=== PATIENT | male | born 1945 | race Caucasian/White ===

== ENCOUNTER 2019-07-08 06:32 | Day surgery (SDC) | payer MEDICARE, SELFPAY ==
[2019-07-08 08:57] LABS: Glucose Point of Care 131 (65-105)
[2019-07-08 08:57] LABS: Glucose Point of Care 119 (65-105)
== END 2019-07-08 09:15 | disposition home or self-care (01) ==
PROVIDERS: PCP Internal Medicine; Visit Provider Surgery
DX: Z12.11 Encounter for screening for malignant neoplasm of colon (principal); Z86.010 Personal history of colon polyps; K57.90 Diverticulosis of intestine, part unspecified, without perforation or abscess without bleeding
CPT/HCPCS: 45378; 812; J2704; J7120

== ENCOUNTER 2019-09-03 07:07 | Outpatient (CLI) | payer MEDICARE, SELFPAY ==
[2019-09-03 07:20] LABS: Add Urine Microscopic? NO; Appearance Urine Clear (Clear); Bilirubin Urine Negative (Negative); Blood Urine Negative (Negative); Color Urine Yellow (Yellow); Glucose Urine UA Negative (Negative); Ketones Urine Negative (Negative); Leukocyte Esterase Ur Negative (Negative); Nitrate Urine Negative (Negative); Protein Urine Negative (Negative); Specific Grav Ur 1.025 (1.010-1.020); Urobilinogen Urine 0.2 mg/dL (0.2-1.0); pH Urine 5.5 (5.0-8.0)
[2019-09-03 07:33] LABS: Hemoglobin A1C 6.4 % (<5.7)
[2019-09-03 08:17] LABS: Alanine Aminotransferase 32 U/L (16-63); Albumin Level 3.9 g/dL (3.4-5.0); Alkaline Phosphatase 60 U/L (46-116); Anion Gap 13.3 mmol/L (7-16); Aspartate Amino Transferase 18 U/L (15-37); Bilirubin,Total 0.7 mg/dL (0.00-1.00); Blood Urea Nitrogen 16 mg/dL (7-18); Calcium 8.9 mg/dL (8.5-10.1); Carbon Dioxide 28 mmol/L (21-32); Chloride 106 mmol/L (98-108); Cholesterol 181 mg/dL (0-200); Creatine Kinase 111 U/L (39-308); Estimated Glomerular Filt Rate > 60; Glucose 115 mg/dL (70-99); HDL Direct 49 mg/dL (40-60); LDL Cholesterol Calculated 109 mg/dL (<130); Osmolality Calculated 298 mOsm/kg (285-295); Potassium 4.3 mmol/L (3.5-5.1); Prostate Specific Antigen 0.7 ng/mL (< OR = 4.0); Sodium 143 mmol/L (136-145); Total Protein 6.9 g/dL (6.4-8.2); Triglycerides 114 mg/dL (0-150)
== END 2019-09-03 07:08 ==
LOC: CHSLAB 07:09
PROVIDERS: PCP Internal Medicine; Visit Provider Internal Medicine
DX: E78.2 Mixed hyperlipidemia (principal); E11.9 Type 2 diabetes mellitus without complications; I10 Essential (primary) hypertension; Z12.5 Encounter for screening for malignant neoplasm of prostate
CPT/HCPCS: 36415; 80053; 80061; 81003; 82550; 83036; 84153; G0103

== ENCOUNTER 2020-03-06 07:23 | Outpatient (CLI) | payer MEDICARE, SELFPAY ==
[2020-03-06 08:02] LABS: Add Urine Microscopic? NO; Appearance Urine Clear (Clear); Bilirubin Urine Negative (Negative); Blood Urine Negative (Negative); Color Urine Yellow (Yellow); Glucose Urine UA Negative (Negative); Ketones Urine Negative (Negative); Leukocyte Esterase Ur Negative (Negative); Nitrate Urine Negative (Negative); Protein Urine Negative (Negative); Specific Grav Ur 1.025 (1.010-1.020); Urobilinogen Urine 0.2 mg/dL (0.2-1.0)
[2020-03-06 08:17] LABS: Hemoglobin A1C 6.1 % (<5.7)
[2020-03-06 08:18] LABS: Creatinine Urine 109.69 mg/dL (40-278); MALB Creatinine Ratio 11.8 mg/g (0-30); Microalbumin Urine Random < 13.0 mg/L
[2020-03-06 08:30] LABS: Alanine Aminotransferase 14 U/L (16-63); Albumin Level 4.1 g/dL (3.4-5.0); Alkaline Phosphatase 68 U/L (46-116); Anion Gap 8 mmol/L (8-16); Aspartate Amino Transferase 17 U/L (15-37); Bilirubin,Total 0.6 mg/dL (0.00-1.00); Blood Urea Nitrogen 20 mg/dL (7-18); Calcium 8.7 mg/dL (8.5-10.1); Carbon Dioxide 28 mmol/L (21-32); Chloride 104 mmol/L (98-108); Cholesterol 177 mg/dL (0-200); Creatine Kinase 68 U/L (39-308); Estimated Glomerular Filt Rate > 60; Glucose 149 mg/dL (70-99); HDL Direct 52 mg/dL (40-60); LDL Cholesterol Calculated 96 mg/dL (<130); Osmolality Calculated 295 mOsm/kg (285-295); Potassium 4.6 mmol/L (3.5-5.1); Sodium 140 mmol/L (136-145); Total Protein 7.2 g/dL (6.4-8.2); Triglycerides 146 mg/dL (0-150)
== END 2020-03-06 07:24 | disposition home or self-care (01) ==
PROVIDERS: PCP Internal Medicine; Visit Provider Internal Medicine
DX: E78.2 Mixed hyperlipidemia (principal); E11.9 Type 2 diabetes mellitus without complications; I10 Essential (primary) hypertension
CPT/HCPCS: 36415; 80053; 80061; 81003; 82043; 82550; 83036

== ENCOUNTER 2020-09-04 07:12 | Outpatient (CLI) | payer MEDICARE, SELFPAY ==
[2020-09-04 07:37] LABS: Hemoglobin A1C 6.7 % (<5.7)
[2020-09-04 07:41] LABS: Add Urine Microscopic? YES; Appearance Urine Clear (Clear); Bilirubin Urine Negative (Negative); Blood Urine Negative (Negative); Color Urine Yellow (Yellow); Glucose Urine UA Negative (Negative); Ketones Urine Negative (Negative); Leukocyte Esterase Ur Trace (Negative); Nitrate Urine Negative (Negative); Protein Urine Negative (Negative); Specific Grav Ur 1.025 (1.010-1.020); Urobilinogen Urine 0.2 mg/dL (0.2-1.0); pH Urine 5.5 (5.0-8.0)
[2020-09-04 07:47] LABS: Bacteria Urine None seen /hpf; RBC Urine None seen /hpf (0-2); Squamous Epithelial Cell Urine Rare /hpf (Few); WBC Urine None seen /hpf (0-3)
[2020-09-04 08:04] LABS: Creatinine Urine 97.45 mg/dL (40-278); MALB Creatinine Ratio 13.3 mg/g (0-30); Microalbumin Urine Random < 13.0 mg/L
[2020-09-04 08:11] LABS: Alanine Aminotransferase 35 U/L (16-63); Albumin Level 3.9 g/dL (3.4-5.0); Alkaline Phosphatase 66 U/L (46-116); Anion Gap 7 mmol/L (8-16); Aspartate Amino Transferase 15 U/L (15-37); Bilirubin,Total 0.7 mg/dL (0.00-1.00); Blood Urea Nitrogen 14 mg/dL (7-18); Carbon Dioxide 30 mmol/L (21-32); Chloride 104 mmol/L (98-108); Cholesterol 161 mg/dL (0-200); Creatine Kinase 60 U/L (39-308); Estimated Glomerular Filt Rate 60; Glucose 127 mg/dL (70-99); HDL Direct 43 mg/dL (40-60); LDL Cholesterol Calculated 86 mg/dL (<130); Osmolality Calculated 294 mOsm/kg (285-295); Potassium 4.3 mmol/L (3.5-5.1); Sodium 141 mmol/L (136-145); Total Protein 6.8 g/dL (6.4-8.2); Triglycerides 162 mg/dL (0-150)
== END 2020-09-04 07:13 | disposition home or self-care (01) ==
LOC: CHSLAB 07:15
PROVIDERS: PCP Internal Medicine; Visit Provider Internal Medicine
DX: E11.9 Type 2 diabetes mellitus without complications (principal); I10 Essential (primary) hypertension; E78.2 Mixed hyperlipidemia
CPT/HCPCS: 36415; 80053; 80061; 81001; 82043; 82550; 83036

== ENCOUNTER 2020-11-29 13:33 | Outpatient (CLI) | payer MEDICARE, SELFPAY ==
--- NOTE | ~2020-11-29 | XR_ITS ---
EXAMINATION:XR_CERV2-3V_CR DATE: 11/29/2020 13:55 INDICATION: Chronic neck pain TECHNIQUE: AP, lateral, and odontoid views of the cervical spine are provided. COMPARISON: None FINDINGS: There are 3 mm of anterolisthesis of C4 on C5. The odontoid is intact. No fracture is ident ified. There is complete loss of intervertebral disc space height at C5-6 and severe loss of interver tebral disc space height at C2-3, C3-4, and C6-7. Degenerative osteophytes project from the anterior endplates of multiple vertebral bodies. 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 IMPRESSION: 1. Severe cervical spondylosis. Reviewed, dictated and finalized at location A.
== END 2020-11-29 13:34 | disposition home or self-care (01) ==
LOC: CHSIMG 13:36
PROVIDERS: PCP Internal Medicine; Visit Provider Internal Medicine
DX: M54.2 Cervicalgia (principal)
CPT/HCPCS: 72040

== ENCOUNTER 2020-12-27 07:17 | Outpatient (CLI) | payer MEDICARE, SELFPAY ==
--- NOTE | ~2020-12-27 | CT_ITS ---
EXAMINATION: CT diagnostic chest w con DATE: 12/27/2020 08:13 INDICATION: Esophageal wall thickening on outside hospital examination. TECHNIQUE: Transaxial computed tomographic images of the chest were obtained after the administration of 75 cc of Omnipaque 350 intravenous contrast. The dose-length product (DLP) was 386.33 mGy-cm. Ite rative reconstruction was used. COMPARISON: 08/26/2016 FINDINGS: There is mild emphysema. The lungs are free of acute opacities. Calcified right lung nodule s are consistent with old granulomatous disease. There is no pleural effusion or pneumothorax. There is chronic mild wall thickening of the distal esophagus. No pathologically enlarged thoracic lymph no virgen are identified. The heart size is normal. Calcified coronary artery atherosclerosis is noted. Lex cified mediastinal lymph nodes are consistent with old granulomatous disease. There is chronic anteri or wedging at the thoracolumbar junction. IMPRESSION: 1. Chronic mild wall thickening of the distal esophagus which could reflect esophagitis. Consider dir ect visualization with endoscopy. Reviewed, dictated and finalized at location B. IMPRESSION: 1. Chronic mild wall thickening of the distal esophagus which could reflect eso phagitis. Consider direct visualization with endoscopy.
[2020-12-27 07:52] LABS: Estimated Glomerular Filt Rate > 60
== END 2020-12-27 07:18 | disposition home or self-care (01) ==
PROVIDERS: PCP Internal Medicine; Visit Provider Internal Medicine
DX: R93.3 Abnormal findings on diagnostic imaging of other parts of digestive tract (principal)
CPT/HCPCS: 71260; Q9967

== ENCOUNTER 2021-01-18 02:30 | Day surgery (SDC) | payer MEDICARE, SELFPAY ==
[2021-01-09 13:48] VITALS: BMI 30.8
[2021-01-18 06:37] VITALS: BP 139/94; PULSE 74; RESP 18; TEMP 35.9; O2SAT 97; BMI 30.8
[2021-01-18] MEDS: LACTATED RINGERS 1,000 ML 150 ML IV CONT (06:56)
[2021-01-18 06:57] LABS: Glucose Point of Care 139 mg/dl (65-105)
--- NOTE | 2021-01-18 07:48 | WPDANESEPPF ---
Anes - Initial Pre Proc Eval Procedure: Operation Date: 01/18/21 08:00 Proposed Procedures p Esophagogastroduodenoscopy - Clayton Banks DO Date/Time: 01/18/21 07:48 Surgeon: Clayton Banks DO Pre Op Diagnosis: distal esophageal thickening Patient Data Age: 75 Gender: M Height: 1.65 m Weight: 84.1 kg Last Vital Signs Temp 35.9 C L 01/18/21 06:37 Pulse 74 01/18/21 06:37 Resp 18 01/18/21 06:37 BP 139/94 H 01/18/21 06:37 Pulse Ox 97 01/18/21 06:37 Allergies Allergy/AdvReac Type Severity Reaction Status Date / Time terbutaline [From Brethine] AdvReac Jittery Verified 01/18/21 06:35 Home Medications Medication Instructions Recorded Confirmed Type amlodipine 10 mg PO DAILY 01/09/21 01/18/21 History aspirin 81 mg PO DAILY 01/09/21 01/18/21 History finasteride 5 mg PO DAILY 01/09/21 01/18/21 History glimepiride 4 mg PO DAILY 01/09/21 01/18/21 History mirtazapine 45 mg PO DAILY 01/09/21 01/18/21 History pravastatin 20 mg PO DAILY 01/09/21 01/18/21 History tamsulosin 0.4 mg PO DAILY 01/09/21 01/18/21 History Laboratory Tests 01/18/21 06:53 POC Capillary Glucose 139 mg/dl H mg/dl (65-105) Patient hx anesthesia problems: none Family hx anesthesia problems: none [facility] Past Medical History Medical History (Updated 01/18/21 @ 07:50 by Ramesh Davenport MD) Diabetes HTN (hypertension) Hyperlipidemia Obesity Social History Social History Smoking status: Former smoker Alcohol intake: never Substance use: never Living arrangements: with family Spiritual care concerns: No Anes - Eval Final PreProcedure Day of Procedure 01/18/21 07:48 Patient weight: obese Heart: regular rate and rhythm Lungs: clear to auscultation Airway: Mallampati scale class II Neurological: alert and oriented Last oral intake: >/= 8 hours ASA classification: III Emergent: no Anesthetic plan: proceed Anesthesia type and monitoring: general GIVS and standard monitoring Informed Consent: The patient's anesthetic plan and its attendant risks and benefits were discussed with the patient/family/POA. Questions were solicited and answers provided to the satisfaction of the patient/family/POA.
--- NOTE | 2021-01-18 08:12 | PM.IMHP ---
H&P: HPI History of Present Illness Date/Time: 01/18/21 08:12 Chief Complaint: Abnormal imaging Narrative: this is a 75-year-old man who presents for EGD. He recently had some imaging that showed evidence of distal esophageal thickening. He denies any heartburn, acid reflux, or dysphagia. He denies any hematemesis or hemoptysis. Review of Systems Review of Systems: All systems reviewed & are unremarkable except as noted in HPI and below Eyes: Eyes: Denies change in vision ENT: Denies hearing loss, Denies neck pain and Denies sore throat Cardiovascular: Cardiovascular: Denies chest pain and Denies dyspnea Respiratory: Respiratory: Denies cough, Denies dyspnea and Denies wheezing Genitourinary: Genitourinary: Denies hematuria and Denies dysuria Musculoskeletal: Musculoskeletal: Denies arthralgias, Denies joint swelling and Denies neck pain Allergic/Immunologic: Allergic/Immunologic: Denies wheezing [facility] Past Medical History Medical History (Updated 01/18/21 @ 08:14 by Clayton Banks DO) Diabetes HTN (hypertension) Hyperlipidemia Obesity Social History Social History Smoking status: Former smoker Alcohol intake: never Substance use: never Living arrangements: with family Spiritual care concerns: No Meds Home Medications and Allergies Home Medications Medication Instructions Recorded Confirmed Type amlodipine 10 mg PO DAILY 01/09/21 01/18/21 History aspirin 81 mg PO DAILY 01/09/21 01/18/21 History finasteride 5 mg PO DAILY 01/09/21 01/18/21 History glimepiride 4 mg PO DAILY 01/09/21 01/18/21 History mirtazapine 45 mg PO DAILY 01/09/21 01/18/21 History pravastatin 20 mg PO DAILY 01/09/21 01/18/21 History tamsulosin 0.4 mg PO DAILY 01/09/21 01/18/21 History Allergies Allergy/AdvReac Type Severity Reaction Status Date / Time terbutaline [From Brethine] AdvReac Jittery Verified 01/18/21 06:35 Vital Signs Vital Signs - 24 hr 01/18/21 06:37 Temperature 35.9 C L Pulse Rate 74 Respiratory Rate 18 Blood Pressure 139/94 H Pulse Oximetry 97 Exam Const: General: alert; No acute distress Orientation/consciousness: patient oriented x3 Limitations: no limitations HENMT: Head: normocephalic and atraumatic Ears: hearing grossly normal bilaterally General nose exam: Normal external nose present and Normal nares present Mouth: Yes Normal oral and palatal mucosa present and Yes moist mucous membranes Eyes: General: appearance normal, both eyes and all related structures Conjunctivae: conjunctivae normal Sclera: sclerae normal Pupils: Equal, round and reactive pupils present EOM: EOMs intact bilaterally Neck: Neck: normal visual inspection, full ROM, no lymphadenopathy, supple and no JVD Lymphatic: no lymphadenopathy noted Chest: Chest palpation & inspection: normal inspection of the chest Resp: Effort & Inspection: normal respiratory effort and able to speak in complete sentences Auscultation: clear to auscultation bilaterally Percussion: percussion normal Cardio: Jugular venous distension: no JVD Rate: regular rate Rhythm: regular rhythm Heart sounds: S1 normal heart sound present and S2 normal heart sound present Peripheral pulses: Peripheral pulses 2+ throughout GI: Inspection: normal to inspection GI Palp: No abdominal tenderness, Yes Soft to palpation, No Guarding due to palpation present (GI), No Hernia present and No Rebound tenderness present Percussion: Yes normal to percussion Auscultation: normal bowel sounds : General: Yes no CVA tenderness Back/Spine/Pelvis: Back: no CVA tenderness Skin: General skin exam: normal color and dry skin Neuro: General: patient oriented x3, gait normal, moves all extremities, no focal motor deficits and CN's II-XI intact bilaterally Cranial nerves: Yes Equal, round and reactive pupils present Speech: normal speech Extrem: General: normal to inspection and capillary
[2021-01-18] MEDS: BENZOCAINE (*SP) 60 ML SPRAY CAN (HURRICAINE) 1 SPRAY MUCOUS MEM (08:23)
--- NOTE | 2021-01-18 08:45 | SUR.OPER ---
Dr. Banks notified of positive h pylori.
[2021-01-18 08:49] VITALS: BP 92/52; PULSE 72; RESP 18; O2SAT 96
[2021-01-18 08:59] VITALS: BP 124/67; PULSE 68; RESP 18; O2SAT 98
[2021-01-18 09:09] VITALS: BP 123/70; PULSE 61; RESP 19; O2SAT 98
== END 2021-01-18 09:20 | disposition home or self-care (01) ==
PROVIDERS: PCP Internal Medicine; Visit Provider Surgery
PROC: 0DJ08ZZ Inspection of Upper Intestinal Tract, Via Natural or Artificial Opening Endoscopic (ICD-10-PCS; CPT 43235; principal; 2021-01-18 08:00)
DX: K25.7 Chronic gastric ulcer without hemorrhage or perforation (principal); K29.80 Duodenitis without bleeding; B96.81 Helicobacter pylori [H. pylori] as the cause of diseases classified elsewhere; I10 Essential (primary) hypertension; E11.9 Type 2 diabetes mellitus without complications; E78.5 Hyperlipidemia, unspecified; E66.9 Obesity, unspecified; Z68.30 Body mass index [BMI] 30.0-30.9, adult; Z79.82 Long term (current) use of aspirin; Z79.84 Long term (current) use of oral hypoglycemic drugs
CPT/HCPCS: 43239; 82948; 87081; 88305; 88313; 88342; J2704; J7120

== ENCOUNTER 2021-03-06 07:15 | Outpatient (CLI) | payer MEDICARE, SELFPAY ==
[2021-03-06 07:33] LABS: Add Urine Microscopic? NO; Appearance Urine Clear (Clear); Bilirubin Urine Negative (Negative); Blood Urine Negative (Negative); Color Urine Light Yellow (Yellow); Glucose Urine UA Negative (Negative); Ketones Urine Negative (Negative); Leukocyte Esterase Ur Negative (Negative); Nitrate Urine Negative (Negative); Protein Urine Negative (Negative); Specific Grav Ur 1.025 (1.010-1.020); Urobilinogen Urine 0.2 mg/dL (0.2-1.0); pH Urine 5.5 (5.0-8.0)
[2021-03-06 07:39] LABS: Creatinine Urine 161.86 mg/dL (40-278); Hemoglobin A1C 6.5 % (<5.7); Microalbumin Urine Random < 13.0 mg/L
[2021-03-06 08:32] LABS: Alanine Aminotransferase 34 U/L (16-63); Albumin Level 3.9 g/dL (3.4-5.0); Alkaline Phosphatase 66 U/L (46-116); Anion Gap 8 mmol/L (8-16); Aspartate Amino Transferase 16 U/L (15-37); Bilirubin,Total 0.7 mg/dL (0.00-1.00); Blood Urea Nitrogen 15 mg/dL (7-18); Carbon Dioxide 29 mmol/L (21-32); Chloride 106 mmol/L (98-108); Cholesterol 160 mg/dL (0-200); Creatine Kinase 75 U/L (39-308); Estimated Glomerular Filt Rate > 60; Glucose 118 mg/dL (70-99); HDL Direct 46 mg/dL (40-60); LDL Cholesterol Calculated 89 mg/dL (<130); Osmolality Calculated 297 mOsm/kg (285-295); Potassium 4.5 mmol/L (3.5-5.1); Sodium 143 mmol/L (136-145); Total Protein 6.8 g/dL (6.4-8.2); Triglycerides 123 mg/dL (0-150)
== END 2021-03-06 07:16 | disposition home or self-care (01) ==
PROVIDERS: PCP Internal Medicine; Visit Provider Internal Medicine
DX: E78.2 Mixed hyperlipidemia (principal); I10 Essential (primary) hypertension; E11.9 Type 2 diabetes mellitus without complications
CPT/HCPCS: 36415; 80053; 80061; 81003; 82043; 82550; 83036

== ENCOUNTER 2021-09-06 07:20 | Outpatient (CLI) | payer MEDICARE, SELFPAY ==
[2021-09-06 07:40] LABS: Add Urine Microscopic? NO; Appearance Urine Clear (Clear); Basophils Percent Auto 0.9 % (0.0-1.0); Bilirubin Urine Negative (Negative); Blood Urine Negative (Negative); Color Urine Light Yellow (Yellow); Eosinophils Percent Auto 7.2 % (1.0-6.0); Glucose Urine UA Negative (Negative); Hemoglobin 15.9 g/dL (12.4-15.3); Immature Granulocyte Absolute 0.06 K/mm3 (0.00-0.00); Immature Granulocyte Percent A 0.5 % (0.0-0.0); Ketones Urine Negative (Negative); Leukocyte Esterase Ur Negative (Negative); Lymphocytes Absolute Auto 4.57 K/mm3 (1.10-4.50); Lymphocytes Percent Auto 41.2 % (18.0-42.0); Mean Corpuscular HGB Conc 34.6 g/dL (32.0-36.0); Mean Corpuscular Hemoglobin 30.1 pg (27.0-31.0); Mean Platelet Volume 9.2 fl (8.7-11.0); Monocytes Absolute Auto 1.04 K/mm3 (0.10-0.90); Monocytes Percent Auto 9.4 % (2.0-11.0); Neutrophils Absolute Auto 4.5 K/mm3 (1.7-7.2); Neutrophils Percent Auto 40.8 % (50.0-70.0); Nitrate Urine Negative (Negative); Platelet Count Result 187 K/mm3 (150-420); Protein Urine Negative (Negative); Red Blood Count 5.29 M/mm3 (4.70-6.10); Red Cell Distribution Width 11.6 % (11.6-14.4); Urobilinogen Urine 0.2 mg/dL (0.2-1.0); White Blood Count 11.1 K/mm3 (4.8-10.8); pH Urine 5.5 (5.0-8.0)
[2021-09-06 07:47] LABS: Hemoglobin A1C 6.5 % (<5.7)
[2021-09-06 07:48] LABS: Creatinine Urine 114.13 mg/dL (40-278); MALB Creatinine Ratio 11.3 mg/g (0-30); Microalbumin Urine Random < 13.0 mg/L
[2021-09-06 08:23] LABS: Alanine Aminotransferase 27 U/L (16-63); Alkaline Phosphatase 61 U/L (46-116); Anion Gap 9 mmol/L (8-16); Aspartate Amino Transferase 14 U/L (15-37); Bilirubin,Total 0.6 mg/dL (0.00-1.00); Blood Urea Nitrogen 24 mg/dL (7-18); Calcium 8.6 mg/dL (8.5-10.1); Carbon Dioxide 26 mmol/L (21-32); Chloride 104 mmol/L (98-108); Cholesterol 170 mg/dL (0-200); Creatine Kinase 68 U/L (39-308); Estimated Glomerular Filt Rate > 60; Glucose 137 mg/dL (70-99); HDL Direct 51 mg/dL (40-60); LDL Cholesterol Calculated 85 mg/dL (<130); Osmolality Calculated 294 mOsm/kg (285-295); Potassium 4.3 mmol/L (3.5-5.1); Sodium 139 mmol/L (136-145); Total Protein 6.7 g/dL (6.4-8.2); Triglycerides 168 mg/dL (0-150)
== END 2021-09-06 07:21 | disposition home or self-care (01) ==
LOC: CHSLAB 07:22
PROVIDERS: PCP Internal Medicine; Visit Provider Internal Medicine
DX: E78.2 Mixed hyperlipidemia (principal); E11.9 Type 2 diabetes mellitus without complications; I10 Essential (primary) hypertension; K25.3 Acute gastric ulcer without hemorrhage or perforation
CPT/HCPCS: 36415; 80053; 80061; 81003; 82043; 82550; 83036; 85025

== ENCOUNTER 2022-03-07 07:03 | Outpatient (CLI) | payer MEDICARE, SELFPAY ==
[2022-03-07 07:16] LABS: Appearance Urine Clear (Clear); Bilirubin Urine Negative (Negative); Blood Urine Negative (Negative); Glucose Urine UA Negative (Negative); Ketones Urine Negative (Negative); Leukocyte Esterase Ur Negative (Negative); Nitrate Urine Negative (Negative); Protein Urine Negative (Negative); Specific Grav Ur 1.025 (1.010-1.020); Urobilinogen Urine 0.2 mg/dL (0.2-1.0)
[2022-03-07 07:23] LABS: Add Urine Microscopic? NO; Color Urine Light Yellow (Yellow); Hemoglobin A1C 6.3 % (<5.7)
[2022-03-07 07:33] LABS: Alanine Aminotransferase 32 U/L (16-63); Alkaline Phosphatase 69 U/L (46-116); Anion Gap 6 mmol/L (8-16); Aspartate Amino Transferase 17 U/L (15-37); Bilirubin,Total 0.7 mg/dL (0.00-1.00); Blood Urea Nitrogen 19 mg/dL (7-18); Calcium 8.9 mg/dL (8.5-10.1); Carbon Dioxide 30 mmol/L (21-32); Chloride 106 mmol/L (98-108); Cholesterol 159 mg/dL (0-200); Creatine Kinase 93 U/L (39-308); Estimated Glomerular Filt Rate > 60; Glucose 113 mg/dL (70-99); HDL Direct 51 mg/dL (40-60); LDL Cholesterol Calculated 82 mg/dL (<130); Osmolality Calculated 297 mOsm/kg (285-295); Potassium 4.3 mmol/L (3.5-5.1); Sodium 142 mmol/L (136-145); Triglycerides 128 mg/dL (0-150)
== END 2022-03-07 07:04 | disposition home or self-care (01) ==
LOC: CHSLAB 07:05
PROVIDERS: PCP Internal Medicine; Visit Provider Internal Medicine
DX: E78.2 Mixed hyperlipidemia (principal); I10 Essential (primary) hypertension; E11.9 Type 2 diabetes mellitus without complications
CPT/HCPCS: 36415; 80053; 80061; 81003; 82550; 83036

== ENCOUNTER 2022-03-18 15:22 | Outpatient (CLI) | payer MEDICARE, SELFPAY ==
[2022-03-18 15:42] LABS: Basophils Absolute Auto 0.08 K/mm3 (0.00-0.10); Basophils Percent Auto 0.7 % (0.0-1.0); Eosinophils Absolute Auto 0.35 K/mm3 (0.02-0.50); Eosinophils Percent Auto 3.3 % (1.0-6.0); Hematocrit 42.6 % (37.0-46.0); Hemoglobin 15.1 g/dL (12.4-15.3); Immature Granulocyte Absolute 0.04 K/mm3 (0.00-0.00); Immature Granulocyte Percent A 0.4 % (0.0-0.0); Lymphocytes Absolute Auto 5.19 K/mm3 (1.10-4.50); Lymphocytes Percent Auto 48.3 % (18.0-42.0); Mean Corpuscular HGB Conc 35.4 g/dL (32.0-36.0); Mean Corpuscular Volume 87.5 fL (78.0-102.0); Mean Platelet Volume 9.4 fl (8.7-11.0); Monocytes Absolute Auto 1.33 K/mm3 (0.10-0.90); Monocytes Percent Auto 12.4 % (2.0-11.0); Neutrophils Absolute Auto 3.8 K/mm3 (1.7-7.2); Neutrophils Percent Auto 34.9 % (50.0-70.0); Platelet Count Result 189 K/mm3 (150-420); Red Blood Count 4.87 M/mm3 (4.70-6.10); Red Cell Distribution Width 11.6 % (11.6-14.4); White Blood Count 10.7 K/mm3 (4.8-10.8)
[2022-03-18 16:44] LABS: Thyroid Stimulating Hormone 1.33 uIU/mL (0.36-3.74); Vitamin B12 282 pg/mL (193-986)
[2022-03-20 14:01] LABS: RPR Screen Non-Reactive (Non-Reactive)
[2022-03-22 15:59] LABS: Methylmalonic Acid 302 nmol/L (87-318)
== END 2022-03-18 15:23 | disposition home or self-care (01) ==
LOC: CHSLAB 15:24
PROVIDERS: PCP Internal Medicine; Visit Provider Internal Medicine
DX: R41.3 Other amnesia (principal); E55.9 Vitamin D deficiency, unspecified; D72.820 Lymphocytosis (symptomatic)
CPT/HCPCS: 36415; 82607; 83921; 84439; 84443; 84481; 85025; 86038; 86592; 88184; 88185; 88189

== ENCOUNTER 2022-04-11 13:05 | Outpatient (CLI) | payer MEDICARE, SELFPAY ==
--- NOTE | ~2022-04-11 | XR_ITS ---
EXAMINATION: XR chest 2V 04/11/2022 13:36 INDICATION: Upper respiratory symptoms. PROCEDURE: 2 view chest COMPARISON: FINDINGS: The lungs are clear. The cardiomediastinal silhouette is within normal limits. There are no pleural effusions. There is no pneumothorax suspected. There is a wedge compression deformity of the lower thoracic spine, likely chronic. There are calcified granulomas of the lungs. IMPRESSION: 1: NO ACUTE CARDIOPULMONARY DISEASE. Reviewed, dictated and finalized at location A.
[2022-04-11 13:29] LABS: Basophils Absolute Auto 0.09 K/mm3 (0.00-0.10); Basophils Percent Auto 0.7 % (0.0-1.0); Eosinophils Absolute Auto 0.29 K/mm3 (0.02-0.50); Eosinophils Percent Auto 2.2 % (1.0-6.0); Hemoglobin 15.1 g/dL (12.4-15.3); Immature Granulocyte Absolute 0.24 K/mm3 (0.00-0.00); Immature Granulocyte Percent A 1.8 % (0.0-0.0); Lymphocytes Absolute Auto 4.31 K/mm3 (1.10-4.50); Lymphocytes Percent Auto 32.5 % (18.0-42.0); Mean Corpuscular Hemoglobin 31.1 pg (27.0-31.0); Mean Corpuscular Volume 86.6 fL (78.0-102.0); Mean Platelet Volume 9.2 fl (8.7-11.0); Monocytes Absolute Auto 1.25 K/mm3 (0.10-0.90); Monocytes Percent Auto 9.4 % (2.0-11.0); Neutrophils Absolute Auto 7.1 K/mm3 (1.7-7.2); Neutrophils Percent Auto 53.4 % (50.0-70.0); Platelet Count Result 216 K/mm3 (150-420); Red Blood Count 4.85 M/mm3 (4.70-6.10); Red Cell Distribution Width 11.5 % (11.6-14.4); White Blood Count 13.3 K/mm3 (4.8-10.8)
[2022-04-11 14:05] LABS: Influenza A QL RT-PCR Negative (Negative); Influenza B QL RT-PCR Negative (Negative); SARS-CoV-2 RNA PCR Negative (Negative)
== END 2022-04-11 13:06 | disposition home or self-care (01) ==
LOC: CHSLAB 13:07
PROVIDERS: PCP Internal Medicine; Visit Provider Internal Medicine
DX: R05.9 Cough, unspecified (principal); J06.9 Acute upper respiratory infection, unspecified; Z20.822 Contact with and (suspected) exposure to COVID-19
CPT/HCPCS: 36415; 71046; 85025; 87502; U0003; U0005

== ENCOUNTER 2022-04-13 07:09 | Outpatient (CLI) | payer MEDICARE, SELFPAY ==
[2022-04-13 07:25] LABS: Basophils Absolute Auto 0.04 K/mm3 (0.00-0.10); Basophils Percent Auto 0.3 % (0.0-1.0); Eosinophils Absolute Auto 0.01 K/mm3 (0.02-0.50); Eosinophils Percent Auto 0.1 % (1.0-6.0); Hematocrit 43.3 % (37.0-46.0); Hemoglobin 15.6 g/dL (12.4-15.3); Immature Granulocyte Absolute 0.09 K/mm3 (0.00-0.00); Immature Granulocyte Percent A 0.6 % (0.0-0.0); Lymphocytes Absolute Auto 3.58 K/mm3 (1.10-4.50); Lymphocytes Percent Auto 22.6 % (18.0-42.0); Mean Corpuscular Hemoglobin 31.1 pg (27.0-31.0); Mean Corpuscular Volume 86.4 fL (78.0-102.0); Mean Platelet Volume 9.2 fl (8.7-11.0); Monocytes Absolute Auto 0.95 K/mm3 (0.10-0.90); Neutrophils Absolute Auto 11.1 K/mm3 (1.7-7.2); Neutrophils Percent Auto 70.4 % (50.0-70.0); Platelet Count Result 205 K/mm3 (150-420); Red Blood Count 5.01 M/mm3 (4.70-6.10); Red Cell Distribution Width 11.4 % (11.6-14.4); White Blood Count 15.8 K/mm3 (4.8-10.8)
[2022-04-13 07:36] LABS: Lactate Dehydrogenase 143 U/L (85-227)
== END 2022-04-13 07:10 | disposition home or self-care (01) ==
LOC: CHSLAB 07:11
PROVIDERS: PCP Internal Medicine; Visit Provider Internal Medicine Hematology & Oncology
DX: D72.820 Lymphocytosis (symptomatic) (principal)
CPT/HCPCS: 36415; 83615; 85025

== ENCOUNTER 2024-03-16 09:43 | Outpatient (RCR) | payer MEDICARE, SELFPAY ==
--- NOTE | 2024-03-16 11:07 | PTOPEVAL1 ---
Assessment and note entered by Lesly Fonseca DPT Evaluation Information Assessment Status Evaluation Diagnosis R shoulder pain ICD-10 Condition Codes (PT) M25.511 Onset 03/16/24 Subjective Information patient reports about 3 weeks ago he fell forwards and caught himself and has had R shoulder pain since. he reports pain is at the top of the shoulder. he reports that since injury pain has improved. he reports he did not get any imagining done. he reports he was having difficulty with reaching and sleeping. he is retired but continues to do yard work and house work. he does not return to MD regarding shoulder pain. Reported Pain Level Pain Score 0: Self Report Assessment PT Clinical Summary Mr. Bates is a 78 year old male who presents to PT with R shoulder pain. He demonstrates decreased R shoulder strength, decreased R shoulder active ROM and positive lift of and infraspinatus testing indicating possible RTC involvement. He has difficulty with sleeping and reaching over head to complete house hold tasks. He would benefit from skilled PT to address impairments and return to [facility]. Plan of Care Interventions Electrical Stimulation,Hot Pack/Cold Pack,Manual Therapy,Neuro Re-education,Patient/Caregiver Educati,Therapeutic Activities,Therapeutic Exercise PT Services Indicated Yes Treatment Frequency and 2x weekly for 8 visits Duration These treatments will address the objective and functional deficits as defined above. The patient will be advanced safely and appropriately in order for the patient to progress towards his/her prior level of function. Additional exercises will be introduced and as well as a comprehensive home exercise program upon discharge, if needed, ?to ensure carryover of functional gains achieved in the clinic. This treatment plan has been reviewed and agreement upon by the patient.
== END 2024-03-16 11:00 | disposition home or self-care (01) ==
LOC: CHSPT 09:43
PROVIDERS: PCP Internal Medicine; Visit Provider Internal Medicine
DX: S49.91XD Unspecified injury of right shoulder and upper arm, subsequent encounter (principal)
CPT/HCPCS: 97014; 97110; 97161; G0283

== ENCOUNTER 2024-04-16 10:33 | Outpatient (CLI) | payer MEDICARE, SELFPAY ==
--- NOTE | ~2024-04-16 | CT_ITS ---
Non-contrast CT scan of the Abdomen and Pelvis Clinical indication: Abdominal pain Technique: 2.5 mm axial scans were obtained through the abdomen and pelvis without intravenous or or al contrast. Dose reduction technique was used on this scan by utilizing automated exposure control a nd iterative reconstruction technique. The dose-length product (DLP) was 436.86 mGy-cm. Findings: Images through the lung bases reveal no abnormalities. 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 Left kidney is also malrotated. No hydronephrosis or renal sto ne of either kidney. The liver, spleen, pancreas, gallbladder, and adrenals appear normal. There is extensive atherosclero tic calcification of the aorta and iliac vessels.. There is no evidence of bowel obstruction. There is colonic diverticulosis. Images through the pelvis were performed. There is no evidence of ascites or lymphadenopathy. Urinary bladder unremarkable. Prostate gland is enlarged. There is diffuse degenerative spondylosis of lumba r spine, mild chronic compression deformities of T12 and L1. 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 No hydronephrosis or renal stone. Enlarged prostate gland. Reviewed, dictated and finalized at [facility]. 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 No hydronephrosis or renal stone. Enlarged prostate gland.
[2024-04-16 11:14] LABS: Hematocrit 43.6 % (37.0-46.0); Hemoglobin 15.2 g/dL (12.4-15.3); Mean Corpuscular HGB Conc 34.9 g/dL (32-36); Mean Corpuscular Hemoglobin 31.4 pg (27.0-31.0); Mean Corpuscular Volume 90.1 fL (78.0-102.0); Mean Platelet Volume 9.9 fl (8.7-11.0); Platelet Count Result 185 K/mm3 (150-420); Red Blood Count 4.84 M/mm3 (4.70-6.10); Red Cell Distribution Width 11.8 % (11.6-14.4); White Blood Count 10.5 K/mm3 (4.8-10.8)
[2024-04-16 11:33] LABS: Alanine Aminotransferase 568 U/L (16-63); Albumin Level 3.9 g/dL (3.4-5.0); Alkaline Phosphatase 559 U/L (46-116); Anion Gap 12 mmol/L (4-12); Aspartate Amino Transferase 268 U/L (15-37); Bilirubin,Total 1.7 mg/dL (0.00-1.00); Blood Urea Nitrogen 20 mg/dL (7-18); Calcium 9.3 mg/dL (8.5-10.1); Carbon Dioxide 24 mmol/L (21-32); Chloride 102 mmol/L (98-108); Estimated Glomerular Filt Rate > 60; Glucose 272 mg/dL (70-99); Lactate Dehydrogenase 240 U/L (85-227); Osmolality Calculated 298 mOsm/kg (285-295); Potassium 4.9 mmol/L (3.5-5.1); Sodium 138 mmol/L (136-145)
[2024-04-16 15:02] LABS: CRP 0.6 mg/dL (0.0-0.9); Erythrocyte Sedimentation Rate 10 mm/hr (0-20)
[2024-04-20 02:33] LABS: Hepatitis B Surface Antigen NON-REACTIVE (NON-REACTIVE)
[2024-04-20 03:09] LABS: Hepatitis A Antibody IgM NON-REACTIVE (NON-REACTIVE); Hepatitis B Core Antibody NON-REACTIVE (NON-REACTIVE); Hepatitis C Virus Antibody NON-REACTIVE (NON-REACTIVE)
[2024-04-21 13:43] LABS: Hepatitis C Additional Testing NO
== END 2024-04-16 10:34 | disposition home or self-care (01) ==
LOC: CHSLAB 10:36
PROVIDERS: PCP Internal Medicine; Visit Provider Internal Medicine
DX: R94.5 Abnormal results of liver function studies (principal); I10 Essential (primary) hypertension; E78.2 Mixed hyperlipidemia; E78.41 Elevated Lipoprotein(a); N40.0 Benign prostatic hyperplasia without lower urinary tract symptoms
CPT/HCPCS: 36415; 74176; 80053; 80074; 83615; 85027; 85652; 86140

== ENCOUNTER 2024-04-30 10:16 | Outpatient (CLI) | payer MEDICARE, SELFPAY ==
[2024-04-30 11:35] LABS: Alanine Aminotransferase 320 U/L (6-50); Albumin Level 4.5 g/dL (3.5-5.1); Alkaline Phosphatase 411 U/L (38-126); Amylase 73 U/L (30-110); Aspartate Amino Transferase 134 U/L (17-59); Bilirubin Direct 1.4 mg/dL (0-0.3); Bilirubin Indirect 1.2 mg/dL (0-1.1)
[2024-04-30 11:38] LABS: Iron 113 ug/dL (49-181)
[2024-04-30 11:48] LABS: Percent Iron Saturation 44 % (20-50)
[2024-04-30 22:48] LABS: GGT 2275 U/L (3-70)
[2024-05-01 02:04] LABS: Alpha-1-Antitrypsin, QN 203 mg/dL (83-199); Ceruloplasmin 35 mg/dL (14-30)
[2024-05-03 08:59] LABS: Alpha Fetoprotein Tumor Marker 3.2 ng/mL (<6.1)
[2024-05-04 17:58] LABS: H pylori, Urea Breath NOT DETECTED (NOT DETECTED)
== END 2024-04-30 10:17 | disposition home or self-care (01) ==
PROVIDERS: PCP Internal Medicine; Visit Provider Nurse Practitioner
DX: K74.60 Unspecified cirrhosis of liver (principal); R63.0 Anorexia; R63.4 Abnormal weight loss; R74.8 Abnormal levels of other serum enzymes; K83.1 Obstruction of bile duct; Z86.19 Personal history of other infectious and parasitic diseases; Z87.19 Personal history of other diseases of the digestive system
CPT/HCPCS: 36415; 80076; 82103; 82105; 82150; 82390; 82977; 83013; 83540; 83550; 86376

== ENCOUNTER 2024-05-25 07:18 | Outpatient (CLI) | payer MEDICARE, SELFPAY ==
--- NOTE | 2024-05-13 12:59 | PC.NURSE ---
Pre Radiology instructions Report to the outpatient [facility] on date 05/25/24 at time _0730 for procedure Time:09 ____ YOU MAY BE MONITORED AT HOSPITAL FOR UP TO 4 HOURS AFTER YOUR PROCEDURE. A visitor will be allowed to accompany the patient into the hospital. You and your visitor will be asked to self-screen and do not enter if you have any COVID symptoms. A mask is OPTIONAL within the hospital. Patients are to have no food or drink 6 hours prior to procedure time Driving will be restricted after the procedure, you must have a person to drive you home. Labs will be drawn in preop area and once reviewed, you will be taken to radiology area for procedure. When the procedure is completed, you will be taken to outpatient where you will be monitored for several hours. You may have one visitor in this area. Other than holding anti-coagulants, patient may take other medication(s) as scheduled. Prior to your appointment date patients are instructed to hold anti-coagulants after discussing with ordering provider to stop. If unable to discontinue anti-coagulants please notify radiologist. ? No aspirin or warfarin (Coumadin) for 7 days prior to the procedure. ? No clopidogrel (Plavix), ticagrelor (Brilinta), prasugrel (Effient) or dabigatran (Pradaxa) for 5 days prior to the procedure. ? No rivaroxaban (Xarelto), apixaban (Eliquis), dipyridamole (Aggrenox or Persantine) or cilostazol (Pletal) for 2 days prior to the procedure. Medications to discontinue per physician: _ASPIRIN 7 DAYS Date to take last dose: _05/17/24 Please leave all valuables, including medications, at home the day of procedure. The hospital will not accept responsibility for valuables. Wear comfortable, loose fitting clothing.? Follow any additional instructions given to you from ordering provider. Telephone instructions given to ____PATIENT and asked if any additional questions and then verbalized understanding. Patient advised to call scheduling provider office or registration scheduling [phone] if any additional questions.
[2024-05-13 13:04] VITALS: BMI 27.4
[2024-05-25] VITALS (12 sets, daily range): BP systolic 107–148; BP diastolic 59–92; PULSE 61–92; RESP 18; TEMP 36.1; O2SAT 98–100; BMI 26.1
--- NOTE | ~2024-05-25 | US_ITS ---
EXAMINATION: US biopsy liver DATE: 05/25/2024 10:35 INDICATION: Cholestatic liver enzymes elevation. TECHNIQUE: The procedure including the risks and benefits was discussed with the patient. Risks discu ssed included bleeding and infection. The patient understood the risks and agreed to proceed. The sk in overlying the liver was prepped and draped in usual sterile fashion. Anesthetic was administered with 1% lidocaine subcutaneously. An 18 gauge core biopsy needle was advanced under continuous ultra sound observation to the lesion of interest. 4 core biopsy specimens were obtained. The needle was removed and the entry site was cleaned and dressed. Post procedure ultrasound demonstrated no hemorr con. FINDINGS: Ultrasound images demonstrate biopsy needle advanced into the left hepatic lobe. IMPRESSION: 1. Successful Ultrasound-guided random biopsy of the left hepatic lobe. Reviewed, dictated and finalized at location A. TZ CUTTER
[2024-05-25 08:06] LABS: Mean Platelet Volume 11.4 fl (7.4-10.4); Platelet Count Result 163 k/mm3 (150-375)
[2024-05-25 09:40] LABS: Prothrombin Time 13.8 Seconds (11.1-14.7)
[2024-05-25 11:33] LABS: Glucose Point of Care 161 mg/dl (65-105)
== END 2024-05-25 14:24 | disposition home or self-care (01) ==
PROVIDERS: PCP Internal Medicine; Referring Provider Nurse Practitioner; Visit Provider Radiology Diagnostic Radiology
PROC: BF45ZZZ Ultrasonography of Liver (ICD-10-PCS; CPT 47000; principal; 2024-05-25 09:30)
DX: R63.0 Anorexia (principal); R63.4 Abnormal weight loss; R74.8 Abnormal levels of other serum enzymes; R17 Unspecified jaundice
CPT/HCPCS: 36415; 47000; 76942; 82948; 85049; 85610; 88307; 88312; 88313

== ENCOUNTER 2024-05-31 10:00 | Outpatient (CLI) | payer MEDICARE, SELFPAY ==
--- NOTE | ~2024-05-31 | CT_ITS ---
EXAMINATION: CT abdomen w con DATE: 05/31/2024 11:00 INDICATION: Elevated liver enzymes. Jaundice. TECHNIQUE: Computed tomography (CT) of the abdomen and pelvis was performed with 100 mL Omnipaque-350 intravenous contrast. Automated exposure control and iterative reconstruction technique were employe d. The dose-length product was 336.39 mGy-cm. COMPARISON: 04/16/2024 FINDINGS: Lung bases are clear. Heart size normal. Atherosclerotic coronary artery calcification. No pericardia l or pleural effusion. Multiple tiny splenic calcifications consistent with old granulomatous disease . Pancreas and bilateral adrenal glands are normal. Ectopic location of the right kidney which is pos itioned anterior to the aortic bifurcation and proximal common iliac arteries with the hilum pointed anteriorly. The left kidney is normally positioned but with anterolaterally directed renal hilum. The re is moderate colonic diverticulosis with a sigmoid predominance. There is no adjacent inflammatory change to suggest diverticulitis. Normal appendix. No pathologically enlarged abdominal or upper pe lvic lymphadenopathy. Chronic mild anterior wedging at T11 and T12. There is moderate intrahepatic biliary ductal dilation which appears to extend to the junction of the left and right hepatic ducts where there appears be thickening of the coccyx which abruptly narrow w ith a 1.9 x 1.2 cm soft tissue density at the site of the focal stenosis. The common bile duct is nor mal. The gallbladder is decompressed but with mild gallbladder wall thickening versus trace amount of pericholecystic fluid. There is heterogeneous attenuation within the gallbladder which could represe nt sludge or stones. IMPRESSION: 1. 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 Consider further evaluation with ERCP. 2. Edematous-appearing gallbladder wall thickening versus trace amount of pericholecystic fluid but w ithout sierra dilation of the gallbladder to more specifically suggest acute cholecystitis. Correlate for Oconnell sign. Reviewed, dictated and finalized at location B. IFIED MEDICAL AIDE IMPRESSION: 1. 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 Consider further evaluation with ERCP. 2. Edematous-appearing gallbladder wall thickening versus trace amount of peric holecystic fluid but without sierra dilation of the gallbladder to more specific ally suggest acute cholecystitis. Correlate for Oconnell sign.
[2024-05-31 10:33] LABS: Estimated Glomerular Filt Rate > 60
[2024-05-31 11:48] LABS: Hemoglobin 13.5 g/dL (12.4-15.3); Mean Corpuscular HGB Conc 34.6 g/dL (32-36); Mean Corpuscular Hemoglobin 31.3 pg (27.0-31.0); Mean Corpuscular Volume 90.3 fL (78.0-102.0); Platelet Count Result 199 K/mm3 (150-420); Red Blood Count 4.32 M/mm3 (4.70-6.10); Red Cell Distribution Width 15.9 % (11.6-14.4); White Blood Count 9.1 K/mm3 (4.8-10.8)
[2024-05-31 11:57] LABS: Alanine Aminotransferase 234 U/L (16-63); Albumin Level 2.6 g/dL (3.4-5.0); Alkaline Phosphatase 557 U/L (46-116); Anion Gap 12 mmol/L (4-12); Aspartate Amino Transferase 147 U/L (15-37); Blood Urea Nitrogen 14 mg/dL (7-18); Calcium 9.2 mg/dL (8.5-10.1); Carbon Dioxide 25 mmol/L (21-32); Chloride 95 mmol/L (98-108); Estimated Glomerular Filt Rate > 60; Glucose 256 mg/dL (70-99); Osmolality Calculated 283 mOsm/kg (285-295); Potassium 4.6 mmol/L (3.5-5.1); Sodium 132 mmol/L (136-145); Total Protein 5.7 g/dL (6.4-8.2)
[2024-05-31 12:19] LABS: GGT > 690.0 U/L (15-85)
== END 2024-05-31 10:01 | disposition home or self-care (01) ==
PROVIDERS: PCP Internal Medicine; Visit Provider Internal Medicine
DX: R10.9 Unspecified abdominal pain (principal); R74.01 Elevation of levels of liver transaminase levels
CPT/HCPCS: 36415; 74160; 80053; 82977; 85027; Q9967

== ENCOUNTER 2024-09-17 12:38 | Outpatient (CLI) | payer MEDICARE, SELFPAY ==
--- OUTSIDE RECORDS SUMMARY | 2024-09-17 12:44 | XMS_ITS | Clinical Summary ---
Author Organization [facility] Address [address] [place] [address] Care Team Providers Care Home Theater Expert Name Role Phone Flo Torres MD Primary Care Provider [phone] Source Comments [facility],non-owned Affiliates and Associated Physician Practices is amultiple site organization consisting of ambulatory clinics and hospital sitesin [place], [place], [place] and [place]. This disclosure is being madepursuant to the Care Everywhere program and may not contain all information available regarding this patient. Last updated 18.[facility] Allergies No known active allergies Medications * Be aware that medications may not be up to date on this document. Alwaysverify current medications with the patient. Medication Sig Dispensed Refills Start Date End Date Status aspirin (Aspirin) 81 MG chew tablet Take 1 (one) tablet by mouth once daily Active lisinopril (Prinivil; Zestril) 10 MG tablet Take 1 (one) tablet by mouth once daily Active cyanocobalamin (Vitamin B-12) 1000 MCG tablet Take 1 (one) tablet by mouth once daily Active vitamin D3 (Cholecalciferol ) 25 MCG (1000 UNITS) tablet Take 2 (two) tablets by mouth once daily Active finasteride (Proscar) 5 MG tablet Take 1 (one) tablet by mouth once daily Active tamsulosin (Flomax) 0.4 MG capsule Take 1 (one) capsule by mouth once daily At the same time every day after a meal. Active insulin glargine (Lantus/Semglee) 100 units/mL pen Inject 10 (ten) Units subcutaneously at bedtime Active cholestyramine (Questran) 4 g packet Take 1 (one) packet by mouth once daily 60 Each 06/01/2024 Active escitalopram (Lexapro) 10 MG tablet Take 1 (one) tablet by mouth once daily 05/19/2024 Active memantine (Namenda) 10 MG tablet Take 0.5 (one-half) tablet by mouth once daily 05/05/2024 Active esomeprazole (NexIUM) 40 MG capsuleIndicatio ns:Duodenal Ulcer Take 1 (one) capsule by mouth 2 times daily, before breakfast and supper for 90 days Reasons: Ulcer of the Duodenum 180 capsule 06/22/2024 Active NovoLOG FLEXPEN pen Inject 5 (five) Units subcutaneously 3 times daily 05/20/2024 Active methocarbamol (Robaxin) 500 MG tablet Take 1 (one) tablet by mouth every 6 hours as needed for Muscle Spasms 90 tablet 1 06/30/2024 Active Active Problems Problem Noted Date Diagnosed Date Weakness 06/20/2024 Jaundice 06/20/2024 Fall, initial encounter 06/20/2024 Total bilirubin, elevated 06/20/2024 Hypotension, unspecified hypotension type 2024 Malaise and fatigue 06/01/2024 Painless jaundice 06/01/2024 Encounters Date Type Department Care Team Description 09/16/2024 Telephone [facility] - GI [address] [place] [phone] Michael Haney, forestry extension specialist (3mo follow up ERCP for stent revision with Dr Ontiveros) 09/14/2024 Telephone [facility] [place] [address] Yessi Ontiveros DO Pre-op Clearance 09/14/2024 Telephone [facility] ENDOSCOPY [address] [place] [address] Madina Watson Procedure (Ercp Cancellation) 08/03/2024 Telephone [facility] RAD ONC [address] [place] [address] Silvia Stringer RN General 07/07/2024 Telephone [facility] - General Surgery [address] [place] [phone] Gale Cannon MD Results 07/07/2024 Telephone [facility] - GI [address] [place] [phone] Kat Adkins, RN Results 06/30/2024 11:30 AM HAIR SPINNING MACHINE OPERATOR Office Visit [facility] - General Surgery [address] [place] [address] Rod Garcia MD Keller, Jennifer, MD Hilar mass (Primary Dx); Painless jaundice 06/30/2024 10:00 AM HAIR SPINNING MACHINE OPERATOR Office Visit Transitional Care at [address] [phone] Rod Garcia MD Hypotension, unspecified hypotension type (Primary Dx); Weakness; Hyperbilirubinemia; Abnormal LFTs; Biliary stricture; S/P ERCP 06/30/2024 Travel 06/29/2024 Telephone Transitional Care at [address] [phone] Evy Collins MA Reminder Call 06/23/2024 Telephone Transitional Care at [address] [phone] Evy Collins MA Reschedule Appointment 06/22/2024 11:37 AM HAIR SPINNING MACHINE OPERATOR Anesthesia Event [facility] ENDOSCOPY [address] [place] [address] Ariadne Coleman MD Ohlhausen, Daniel, MD 06/22/2024 10:00 AM HAIR SPINNING MACHINE OPERATOR - 06/22/2024 11:30 AM HAIR SPINNING MACHINE OPERATOR Surgery [facility] ENDOSCOPY [address] [place] [address] Yessi Ontvieros DO EUS 06/22/2024 8:19 AM HAIR SPINNING MACHINE OPERATOR - 06/22/2024 4:47 PM HAIR SPINNING MACHINE OPERATOR Hospital Encounter [facility] [address] [place] [address] Yessi Ontiveros DO Surgery General Discharge Disposition: Home or Self Care 06/22/2024 Telephone [facility] - GI [address] [place] [address] Michael Haney, forestry extension specialist (3mo follow up ERCP for stent revision with Dr. Ontiveros) 06/22/2024 Travel 06/21/2024 Travel 06/21/2024 Telephone Transitional Care at [facility] [address] [place] [address] Shyla Lares RNdinkey motor operator 06/19/2024 11:50 PM HAIR SPINNING MACHINE OPERATOR - 06/20/2024 3:00 PM HAIR SPINNING MACHINE OPERATOR Emergency [facility] EMERGENCY DEPARTMENT [address] [place] [address] Kirstin Vang MD Majeed, MD Yash Ching Saida A, MD Jaundice (Primary Dx); Weakness; Fall, initial encounter; Total bilirubin, elevated; Hypotension, unspecified hypotension type Discharge Disposition: Home or Self Care from Last 3 Months Social History Tobacco Use Types Packs/Day Years Used Date Smoking Tobacco: Former Cigarettes Q uit: 1989 Smokeless Tobacco: Never Tobacco Cessation:Counseling Given: Not Answered Alcohol Use Standard Drinks/Week Comments Not Currently 0 (1 standard drink = 0.6 oz pur e alcohol) Sex and Gender Information Value Date Recorded Sex Assigned at Not on file Gender Identity Not on file Sexual Orientation Not on file Last Filed Vital Signs Vital Sign Reading Time Taken Comments Blood Pressure 94/64 06/30/2024 11:14 AM HAIR SPINNING MACHINE OPERATOR Pulse 74 06/30/2024 11:14 AM HAIR SPINNING MACHINE OPERATOR Temperature 36.8 C (98.2 F) 06/30/2024 11:14 AM HAIR SPINNING MACHINE OPERATOR Respiratory Rate 17 06/30/2024 11:14 AM HAIR SPINNING MACHINE OPERATOR Oxygen Saturation 96% 06/30/2024 11:14 AM HAIR SPINNING MACHINE OPERATOR Inhaled Oxygen Concentration - - Weight 72.6 kg (160 lb) 06/30/2024 11:14 AM HAIR SPINNING MACHINE OPERATOR Height 165.1 cm (5' 5 ) 06/30/2024 11:14 AM HAIR SPINNING MACHINE OPERATOR Body Mass Index 26.63 06/30/2024 11:14 AM HAIR SPINNING MACHINE OPERATOR Plan of Treatment Health Maintenance Due Date Last Done Comments MEDICARE AWV 12 MONTHS 1945 DTAP/TDAP/TD VACCINES (1 - Tdap) 08/12/1962 PNEUMOCOCCAL VACCINE 50+ (1 of 2 - PCV) 08/12/1962 ZOSTER VACCINE (1 of 2) 08/12/1993 Respiratory Syncytial Virus (RSV) Vaccine Pt: or over 60 yrs (1 - 1-dose 75+ series) 08/12/2018 COVID-19 VACCINE ( season) 2024 05/15/2021, 08/16/2020, 07/19/2020 DEPRESSION SCREENING 06/09/2024 INFLUENZA VACCINE Completed 04/21/2024, , 03/14/2021, Additional history exists HEPATITIS B VACCINE Aged Out No longe r eligible based on patient's age to complete this topic HIB VACCINE Aged Out No longer eligi ble based on patient's age to complete this topic HPV VACCINE Aged Out No longer eligi ble based on patient's age to complete this topic MENINGOCOCCAL (Group B) VACCINE SHARED DECISION-MAKING Aged Out No longer eligible based on patient's age to complete this topic MENINGOCOCCAL GROUPS A/C/Y/W VACCINE Aged Out No longer eligible based on patient's age to complete this topic Medical Devices Implanted Type Area Certified Ophthalmic Surgical Assistant Device Identifier Shelf Expiration Date Model / Serial / Lot Stent Biliary 7fr 12cm Ddnl Bnd Preld Implanted:Qty: 1 on 06/22/2024 by Yessi Ontiveros DO at [facility] N/A: Bile Duct [employer] [id number] 07/20/2025 [id number] / / [id number] Stent Biliary 7fr 12cm Ddnl Bnd Preld Implanted:Qty: 1 on 06/22/2024 by Yessi Ontiveros DO at [facility] N/A: Bile Duct [employer] [id number] 08/27/2025 [id number] / / [id number] Procedures Procedure Name Priority Date/Time Associated Diagnosis Comments CYTOLOGY NON-HEATING PLANT SUPERINTENDENT PANEL (STL) Routine 06/22/2024 2:30 PM HAIR SPINNING MACHINE OPERATOR Painless jaundice LAB MISC TEST (NOT BLOOD) Routine 06/22/2024 2:30 PM HAIR SPINNING MACHINE OPERATOR Painless jaundice GLUCOSE - POINT OF CARE Routine 06/22/2024 2:19 PM HAIR SPINNING MACHINE OPERATOR PATHOLOGY TISSUE Routine 06/22/2024 2:02 PM HAIR SPINNING MACHINE OPERATOR Dilated bile duct Jaundice ENDOTRACHEAL TUBE NOTE Routine 11:50 AM HAIR SPINNING MACHINE OPERATOR DE ERCP DX W BRUSH WASH WHEN PERF 06/22/2024 11:31 AM HAIR SPINNING MACHINE OPERATOR Dilated bile duct Jaundice DE ENDOSCOPIC ULTRASOUND EXAM 06/22/2024 11:31 AM HAIR SPINNING MACHINE OPERATOR Dilated bile duct Jaundice PT-INR [facility] Routine 06/22/2024 11:29 AM HAIR SPINNING MACHINE OPERATOR Painless jaundice COMPREHENSIVE METABOLIC PANEL Routine 06/22/2024 11:29 AM HAIR SPINNING MACHINE OPERATOR Painless jaundice CBC W AUTO DIFFERENTIAL AM Draw 06/22/2024 11:29 AM HAIR SPINNING MACHINE OPERATOR Painless jaundice ERCP Routine 06/22/2024 10:50 AM HAIR SPINNING MACHINE OPERATOR GLUCOSE - POINT OF CARE Routine 06/22/2024 8:58 AM HAIR SPINNING MACHINE OPERATOR COMPREHENSIVE METABOLIC PANEL Routine 06/22/2024 8:58 AM HAIR SPINNING MACHINE OPERATOR Malaise and fatigue CARDIAC EKG ORDER 06/21/2024 11: 20 AM HAIR SPINNING MACHINE OPERATOR GLUCOSE - POINT OF CARE Routine 06/20/2024 2:21 PM HAIR SPINNING MACHINE OPERATOR GLUCOSE - POINT OF CARE Routine 06/20/2024 8:10 AM HAIR SPINNING MACHINE OPERATOR SARS-COV-2 (COVID-19)+INFLU A+B PCR RAPID STAT 06/20/2024 7:59 AM HAIR SPINNING MACHINE OPERATOR Weakness CBC W/O DIFFERENTIAL STAT 06/20/2024 5:08 AM HAIR SPINNING MACHINE OPERATOR Jaundice PHOSPHORUS BLOOD STAT 06/20/2024 5:08 AM HAIR SPINNING MACHINE OPERATOR Jaundice MAGNESIUM BLOOD STAT 06/20/2024 5:08 AM HAIR SPINNING MACHINE OPERATOR Jaundice COMPREHENSIVE METABOLIC PANEL STAT 06/20/2024 5:08 AM HAIR SPINNING MACHINE OPERATOR Jaundice CT ABDOMEN PELVIS W CONTRAST STAT 06/20/2024 1:07 AM HAIR SPINNING MACHINE OPERATOR Jaundice Total bilirubin, elevated TROPONIN-I HIGH SENSITIVE REFLEX 1HOUR Timed 06/20/2024 12:47 AM HAIR SPINNING MACHINE OPERATOR URINALYSIS REFLEX MICROSCOPIC REFLEX CULTURE STAT 06/19/2024 9:49 PM HAIR SPINNING MACHINE OPERATOR CT CERVICAL SPINE WO CONTRAST STAT 06/19/2024 7:15 PM HAIR SPINNING MACHINE OPERATOR Fall, initial encounter CT HEAD WO CONTRAST STAT 06/19/2024 7:15 PM HAIR SPINNING MACHINE OPERATOR Fall, initial encounter SARS-COV-2 (COVID-19) FLU A/B RSV PCR RAPID STAT 06/19/2024 6:34 PM HAIR SPINNING MACHINE OPERATOR XR CHEST 2VW STAT 06/19/2024 6:32 PM HAIR SPINNING MACHINE OPERATOR Weakness EKG 12-LEAD STAT 06/19/2024 6:32 PM HAIR SPINNING MACHINE OPERATOR Weakness TSH REFLEX FREE T4 STAT 06/19/2024 6: 28 PM HAIR SPINNING MACHINE OPERATOR AMMONIA STAT 06/19/2024 6:28 PM HAIR SPINNING MACHINE OPERATOR TROPONIN-I HIGH SENSITIVE BASELINE + 1HR STAT 06/19/2024 6:28 PM HAIR SPINNING MACHINE OPERATOR PT-INR [facility] STAT 06/19/2024 6:28 PM HAIR SPINNING MACHINE OPERATOR MAGNESIUM BLOOD STAT 06/19/2024 6:28 PM HAIR SPINNING MACHINE OPERATOR COMPREHENSIVE METABOLIC PANEL STAT 06/19/2024 6:28 PM HAIR SPINNING MACHINE OPERATOR CBC W AUTO DIFFERENTIAL STAT 06/19/2024 6:28 PM HAIR SPINNING MACHINE OPERATOR from Last 3 Months Results * CYTOLOGY NON-HEATING PLANT SUPERINTENDENT PANEL (STL) (06/22/2024 2:30 PM HAIR SPINNING MACHINE OPERATOR) Case Report Medical Cytology Report Case: [id number] Authorizing Provider: Rama Yessi, DO Collected: 06/22/2024 02:30 PM Ordering Location: [facility] OP Received: 06/22/2024 03:00 PM Pathologist: Aleksandr Palacio MD Specimen: Bile Duct 07/06/2024 8:42 AM [facility] Specimen Adequacy Adequate cellularity for evaluation. 07/06/2024 8:42 AM [facility] Final Diagnosis REVISED REPORT Bile duct brushing (clinically hepatic bifurcation): Positive for malignancy: Adenocarcinoma (see COMMENT). COMMENT: This is a revised report with a change in the diagnosis from atypical to malignant. This case was reviewed by additional departmental Cytopathologist with diagnostic agreement. The atypical cells seen on the cell block are also compatible with well-differentiated adenocarcinoma. NOTE: The revised diagnosis was communicated to Dr. Cannon on 07/06/[address] Palacio. 07/06/2024 8:42 AM [facility] Amendment electronically signed by Aleksandr Palacio MD on 07/06/2024 at 8:42 AM Clinical History Biliary ductal dilatation, 5 separate duodenal ulcers, bile duct stricture 07/06/2024 8:42 AM [facility] Gross Description 1 Pap stained ThinPrep slide and 1 cell block H&E from 20cc collection fluid w/brush 07/06/2024 8:42 AM [facility] Microscopic Description Microscopic examination is performed and supports the final diagnosis. 07/06/2024 8:42 AM [facility] Addendum 1 REVISED REPORT NOTE: This is a REVISED (corrected) report. The atypical cells present on the cell block slide are consistent with well-differentiated adenocarcinoma. 07/06/2024 8:42 AM [facility] Addendum electronically signed by Aleksandr Palacio MD on 06/24/2024 at 9:21 AM Pathologist Location at [facility] 07/06/2024 8:42 AM [facility] Disclaimer The performance characteristics of all immunohistochemical and indirect immunofluorescence stains (if any) cited in this report were determined by the Histopathology Laboratory of [facility]. Some of these tests rely on the use of analyte-specific reagents and are subject to specific labeling requirements by the US Food and Drug Administration. Such tests were developed by the [facility] of [facility] and have not been cleared or approved by the FDA. The FDA has determined that such clearance and approval is not necessary. These tests are used for clinical purposes and should not be regarded as investigational or for research. This laboratory is certified under the Clinical Laboratory Improvement Amendments (CLIA) as qualified to perform high complexity clinical laboratory testing. This case has been personally reviewed and interpreted by the attending (teaching) pathologist. 07/06/2024 8:42 AM HAIR SPINNING MACHINE OPERATOR [facility] Embedded Images 07/06/2024 8:42 AM HAIR SPINNING MACHINE OPERATOR [facility] Pathology/Cytolo gy BILE DUCT PART / Unknown Collection / Unknown 06/22/2024 2:30 PM HAIR SPINNING MACHINE OPERATOR 06/22/2024 3:00 PM HAIR SPINNING MACHINE OPERATOR Yessi Ontiveros DO LAB - PATHOLOGY/CYTO LOGY ORDERABLES Performing Organization Address City/[facility]/ZIP Co de Phone Number [facility] [address] [place] [address], [facility] [phone] * LAB MISC TEST (NOT BLOOD) (06/22/2024 2:30 PM HAIR SPINNING MACHINE OPERATOR) Test Name Biliary Tract Malignancy, FISH (Chawla BILAO) on bile duct brushing in ThinPrep 07/26/2024 1:03 PM HAIR SPINNING MACHINE OPERATOR [facility] REF LAB NON INTERF Test Result See Scanned Report 07/26/2024 1:03 PM HAIR SPINNING MACHINE OPERATOR [facility] REF LAB NON INTERF Comment Ref Lab 07/26/2024 1:03 PM HAIR SPINNING MACHINE OPERATOR [facility] REF LAB NON INTERF Other BRUSH BIOPSY OF BILE DUCT / Unknown Collection / Unknown 06/22/2024 2:30 PM HAIR SPINNING MACHINE OPERATOR 06/22/2024 4:31 PM HAIR SPINNING MACHINE OPERATOR Yessi Ontiveros DO LAB - BODY FLUID ORD ERABLES [facility] REF LAB NON INTERF [address] [place] [address], [facility] [phone] * (ABNORMAL) GLUCOSE - POINT OF CARE (06/22/2024 2:19 PM HAIR SPINNING MACHINE OPERATOR) Only the most recent of4 resultswithin the time period is included. Glucose WB/POC 122(H) 70 - 99 mg/dL 06/22/2024 6:09 PM [facility] Specimen Type Cap Fingerstick 2024 6:09 PM [facility] Blood BLOOD SPECIMEN / Unknown 06/22/2024 2:19 PM HAIR SPINNING MACHINE OPERATOR 06/22/2024 6:09 PM HAIR SPINNING MACHINE OPERATOR Yessi Ontiveros DO LAB - POINT OF CARE ORDERABLES [facility] [address] [place] [phone], [facility] [phone] * PATHOLOGY TISSUE (06/22/2024 2:02 PM HAIR SPINNING MACHINE OPERATOR) Case Report Surgical Pathology Report Case: [id number] Authorizing Provider: Yessi Ontiveros DO Collected: 06/22/2024 02:02 PM Ordering Location: [facility] Received: 06/22/2024 03:00 PM Pathologist: Lisbeth Yarbrough MD Specimen: Gastric, gastric biopsies r/o h. pylori 06/23/2024 11:36 AM [facility] Final Diagnosis Stomach, biopsy (A): - Mild chronic gastritis - No active inflammation or H. pylori organisms (H&E examination) 06/23/2024 11:36 AM [facility] Microscopic Description and Comment Microscopic examination substantiates the final diagnosis. 06/23/2024 11:36 AM [facility] Clinical History The patient is an 78-year-old man with biliary dilation on CT scan. Operative procedure/findings: ERCP/EGD - gastritis with pyloric stenosis and edema, biopsied to rule out H. pylori 06/23/2024 11:36 AM [facility] Gross Description The requisition and specimen(s) are identified with the patient's name, Kirby Bates. Received in formalin, specimen A , Are 3 mccray-yellow soft tissue fragments, ranging from 0.2 to 0.3 cm and measuring 0.4 x 0.3 x 0.1 cm in aggregate, submitted in toto as cassette A1. AL 06/23/2024 11:36 AM [facility] Pathologist Location at [facility] 06/23/2024 11:36 AM [facility] Disclaimer The performance characteristics of all immunohistochemical and indirect immunofluorescence stains (if any) cited in this report were determined by the [facility]opathology Laboratory of [facility]. Some of these tests were developed by our own laboratory and have not been cleared or approved by the US Food and Drug Administration. The FDA does not require this test to go through premarket FDA review. These tests are used for clinical purposes. They should not be regarded as investigational or for research. This laboratory is certified under the Clinical Laboratory Improvement Amendments (CLIA) as qualified to perform high complexity clinical laboratory testing. This case has been personally reviewed and interpreted by the attending (teaching) pathologist. 06/23/2024 11:36 AM [facility] Embedded Images 06/23/2024 11:36 AM [facility] Biopsy, NOS GASTRIC CONTENTS SPECIMEN / Unknown 06/22/2024 2:02 PM HAIR SPINNING MACHINE OPERATOR 06/22/2024 3:00 PM HAIR SPINNING MACHINE OPERATOR Comment:Pre-op diagnosis: Dilated bile duct [K83.8] Jaundice [R17] Yessi Ontiveros DO LAB - PATHOLOGY/CYTO LOGY ORDERABLES Performing Organization Address City/State/[facility] Co de Phone Number [facility] [address] [place] [address], [facility] [phone] * ETT LINE PERFORMABLE (06/22/2024 11:50 AM HAIR SPINNING MACHINE OPERATOR) Narrative Shyla Morel APRN-CRNA - 06/22/2024 11:50 AM HAIR SPINNING MACHINE OPERATOR Shyla Morel APRN-CRNA 06/22/2024 11:51 AM Endotracheal Tube Placement: Patient Location: OR. Intubation Event Date/Time: 06/22/2024 11:45 AM Procedure: intubation (21638) Procedure Section: Induction: standard IV Patient Position: sniffing Mask Ventilation: easy. Blade Type: Medina Blade Size: 2 Laryngoscopy View: grade 1 (full cords) Intubation Adjuncts: stylet Tube: endotracheal tube Placement: oral Tube type: cuff - inflated Tube Size (MM): 8 Depth of Insertion (CM): 23 Measured From: lips Cuff Inflated With: air Number of Attempts: 1. Placement Verified By: direct visualization, bilateral breath sounds, chest auscultation and CO2 monitor Tube secured with: adhesive tape and ETT garcia. Dentition unchanged? Yes Difficult Airway? No. Procedure Start Time: 06/22/2024 11:45 AM. Staff Section Anesthesia Provider: Shyla Morel APRN-CLAMP FORKLIFT OPERATOR, Performed the procedure Provider #1: Ariadne Coleman MD. Ariadne Coleman MD GENERAL ANESTHESIA O RDERABLES * (ABNORMAL) PT-INR [facility] (06/22/2024 11:29 AM HAIR SPINNING MACHINE OPERATOR) Only the most recent of2 resultswithin the time period is included. Pathologist [facility] PT 21.6(H) 12.1 - 14.8 Seconds 06/22/2024 1:01 PM HAIR SPINNING MACHINE OPERATOR [facility] INR 1.9 See Comment 06/22/2024 1:01 PM [facility] Comment:The suggested therap eutic range for standard coumadin (warfarin) therapy is an INR of 2.0-3.0. For high-risk patients (Mechanical Mitral Valve Prosthesis, etc.), the suggested prophylactic therapeutic range is an INR of 2.5-3.5. Blood BLOOD SPECIMEN / Unknown Venipuncture / Unknown 06/22/2024 11:29 AM HAIR SPINNING MACHINE OPERATOR 06/22/2024 11:36 AM HAIR SPINNING MACHINE OPERATOR Yessi Ontiveros DO LAB - COAGULATION OR DERABLES Performing Organization Address City/State/[facility] Co de Phone Number [facility] [address] [place] [phone], [facility] [phone] * (ABNORMAL) CBC W AUTO DIFFERENTIAL (06/22/2024 11:29 AM HAIR SPINNING MACHINE OPERATOR) Only the most recent of2 resultswithin the time period is included. Pathologist [facility] WBC 9.4 4.0 - 10.7 x10E9/L 06/22/2024 11:55 AM HAIR SPINNING MACHINE OPERATOR [facility] RBC Count 4.12(L) 4.30 - 5.80 x10E12/L 06/22/2024 11:55 AM [facility] Hemoglobin 12.8(L) 13.3 - 17.5 g/dL 06/22/2024 11:55 AM [facility] Hematocrit 35.6(L) 38.7 - 51.1 % 06/22/2024 11:55 AM [facility] MCV 86.4 80.0 - 98.0 fL 06/22/2024 11:55 AM [facility] MCH 31.1 26.7 - 33.6 pg 06/22/2024 11:55 AM [facility] MCHC 36.0 31.7 - 36.3 g/dL 06/22/2024 11:55 AM [facility] RDW-CV 17.4(H) 11.3 - 14.8 % 06/22/2024 11:55 AM [facility] Platelet Count 151 150 - 420 x10E9/L 06/22/2024 11:55 AM [facility] MPV 9.4 7.8 - 11.4 fL 06/22/2024 11:55 AM [facility] Neutrophil % 73.1 41.0 - 74.0 % 06/22/2024 11:55 AM [facility] Lymphocyte % 14.9(L) 17.0 - 47.0 % 06/22/2024 11:55 AM [facility] Monocyte % 8.9 3.0 - 11.0 % 06/22/2024 11:55 AM [facility] Eosinophil % 1.0 0.0 - 7.0 % 06/22/2024 11:55 AM [facility] Basophil % 0.5 0.0 - 1.6 % 06/22/2024 11:55 AM [facility] Immature Granulocytes % 1.6(H) 0.0 - 1.0 % 06/22/2024 11:55 AM [facility] Neutrophil Absolute 6.89 1.60 - 7.50 x10E9/L 06/22/2024 11:55 AM [facility] Lymphocyte Absolute 1.40 1.00 - 4.40 x10E9/L 06/22/2024 11:55 AM [facility] Monocyte Absolute 0.84 0.15 - 1.00 x10E9/L 06/22/2024 11:55 AM [facility] Eosinophil Absolute 0.09 0.00 - 0.60 x10E9/L 06/22/2024 11:55 AM [facility] [facility] Basophil Absolute 0.05 0.00 - 0.13 x10E9/L 06/22/2024 11:55 AM [facility] Blood BLOOD SPECIMEN / Unknown Venipuncture / Unknown 06/22/2024 11:29 AM HAIR SPINNING MACHINE OPERATOR 06/22/2024 11:43 AM HAIR SPINNING MACHINE OPERATOR Yessi Ontiveros DO LAB - HEMATOLOGY ORD ERABLES [facility] [address] [place] [address], [facility] [phone] * (ABNORMAL) COMPREHENSIVE METABOLIC PANEL (06/22/2024 11:29 AM HAIR SPINNING MACHINE OPERATOR) Only the most recent of4 resultswithin the time period is included. BUN 11 7 - 26 mg/dL 06/22/2024 12:27 PM [facility] Creatinine 0.74 0.71 - 1.16 mg/dL 06/22/2024 12:27 PM [facility] Sodium 132(L) 136 - 145 mmol/L 06/22/2024 12:27 PM [facility] Potassium 4.0 3.5 - 4.5 mmol/L 06/22/2024 12:27 PM [facility] Chloride 101 98 - 107 mmol/L 06/22/2024 12:27 PM [facility] CO2 24 22 - 29 mmol/L 06/22/2024 12:27 PM [facility] Glucose 85 70 - 99 mg/dL 06/22/2024 12:27 PM [facility] Calcium 8.2(L) 8.4 - 10.2 mg/dL 06/22/2024 12:27 PM [facility] Protein Total 4.9(L) 6.0 - 8.3 g/dL 06/22/2024 12:27 PM [facility] Albumin 1.8(L) 3.4 - 5.0 g/dL 06/22/2024 12:27 PM [facility] Bilirubin Total 25.6(H) 0.2 - 1.2 mg/dL 06/22/2024 12:27 PM [facility] Alkaline Phosphatase 1,205(H) 40 - 150 U/L 06/22/2024 12:27 PM [facility] ALT 273(H) 5 - 55 U/L 06/22/2024 12:27 PM [facility] AST 298(H) 5 - 34 U/L 06/22/2024 12:27 PM [facility] Anion Gap 7 6 - 16 06/22/2024 12:27 PM [facility] BUN/Creatinine Ratio 15 7 - 23 06/22/2024 12:27 PM [facility] Osmolality Calculated 273(L) 275 - 295 mOsm/kg 06/22/2024 12:27 PM [facility] Albumin/Globulin Ratio 0.6(L) 1.1 - 2.3 06/22/2024 12:27 PM [facility] eGFR by CKD-EPI >90 >=90 mL/min/1. 73 m2 06/22/2024 12:27 PM [facility] Blood BLOOD SPECIMEN / Unknown Venipuncture / Unknown 06/22/2024 11:29 AM HAIR SPINNING MACHINE OPERATOR 06/22/2024 11:44 AM HAIR SPINNING MACHINE OPERATOR Yessi Ontiveros DO LAB - CHEMISTRY HERMAN Pearson Organization Address City/State/[facility] Co de Phone Number [facility] [address] [place] [phone] [phone] * ERCP (06/22/2024 10:50 AM HAIR SPINNING MACHINE OPERATOR) Report Endoscopy POC Endoscopy Department Report _ Patient Name: Kirby Bates Procedure Date: 06/22/2024 10:50 AM Date of : 1945 Classification: Outpatient Gender: Male Ethnicity: Not or Race: White _ Providers: Yessi Ontiveros DO, James Sutherland MD (Fellow) Referring MD: Procedure: ERCP Indications: Biliary dilation on Computed Tomogram Scan, Jaundice, Elevated liver enzymes Medications: General Anesthesia, Indomethacin 100 mg DE Patient Profile: This is an 78 year old male. Description of Procedure: After obtaining informed consent, the scope was passed under direct vision. Throughout the procedure, the patient's blood pressure, pulse, and oxygen saturations were monitored continuously. The Duodenoscope was introduced through the mouth, and advanced to the duodenum and used to inject contrast into the bile duct. The [id number] was introduced through the mouth, and advanced to the duodenum and used to inject contrast into the bile duct. The patient tolerated the procedure well. The ERCP was unusually difficult due to challenging esophageal intubation because of abnormal patient anatomy. Findings: The public policy coordinator film was normal. The upper GI tract was traversed under direct vision without detailed examination. Diffuse moderate inflammation characterized by congestion (edema), erythema and friability was found in the entire examined stomach. A benign-appearing, intrinsic moderate stenosis was found at the pylorus. This was traversed. Five non-bleeding cratered duodenal ulcers with an adherent clot (Cameron Class IIb) were found in the first portion of the duodenum and in the second portion of the duodenum. The largest lesion was 5 mm in largest dimension. Biopsies were performed in the gastric body and in the gastric antrum through the esophagogastroduodenoscope with a cold forceps for histology and Helicobacter pylori testing. A TTS dilator was passed through the scope. Dilation with a 12-13.5-15 mm pyloric balloon dilator was performed under fluoroscopic guidance at the pylorus. The major papilla was normal. Superficial cannulation of and contrast injection into the bile duct was accomplished with the short-nosed traction sphincterotome. I personally interpreted the bile duct images. There was brisk flow of contrast through the ducts. Image quality was excellent. Contrast extended to the entire biliary tree. The common hepatic duct, hepatic duct bifurcation and common hepatic duct with patent communication between right & left hepatic ducts (Bismuth I) contained a single severe stenosis 13 mm in length. The middle third of the main bile duct and upper third of the main bile duct were moderately dilated, secondary to a stricture. The largest diameter was 10 mm. A 0.025 inch angled standard wire was passed into the biliary tree. The short-nosed traction sphincterotome was passed over the guidewire and the bile duct was then deeply cannulated. Contrast was injected. A 4 mm biliary sphincterotomy was made with a traction (standard) sphincterotome. There was no post-sphincterotomy bleeding. Cells for cytology were obtained by brushing in the hepatic duct bifurcation. Cells for fluorescence in situ hybridization (FISH) were obtained by brushing in the hepatic duct bifurcation. Dilation of the upper third of the main bile duct with a 6 mm balloon dilator was successful. One 7 Fr by 12 cm transpapillary biliary stent with a single external flap and a single internal flap was placed into the right hepatic duct. Bile flowed through the stent. The stent was in good position. One 7 Fr by 12 cm transpapillary plastic stent with a single external flap and a single internal flap was placed into the left hepatic duct. Bile flowed through the stent. The stent was in good position. Estimated Blood Loss: Estimated blood loss was minimal. Complications: No immediate complications. Impression: - Gastritis in the antrum characterized by edema and pyloric stenosis. Biopsied for h.pylori. Pylorus dilated to 15mm. - Non-bleeding duodenal ulcers with an adherent clot (Cameron Class IIb). - ERCP with sphincterotomy, technically challenging due to scope positioning and duodenal ulcerations. 13mm long hilar stricture, brushed for cytology and FISH. Stricture dilated to 6mm. One 7 Fr x 12 cm plastic biliary stent was placed into the RIHD and one 7F x 12cm straight plastic stent was placed into the LIHD. Recommendation: - Patient has a contact number available for emergencies. The signs and symptoms of potential delayed complications were discussed with the patient. Return to normal activities tomorrow. Written discharge instructions were provided to the patient. - Resume previous diet. - Discharge patient to home. - Repeat ERCP in 3 months to exchange stent. - Use Nexium (esomeprazole) 40 mg PO BID for 3 months. - The findings and recommendations were discussed with the patient. Procedure Code(s): --- Professional --- 42374, Endoscopic retrograde cholangiopancreatography (ERCP); with placement of endoscopic stent into biliary or pancreatic duct, including pre- and post-dilation and guide wire passage, when performed, including sphincterotomy, when performed, each stent 96978, 59, Endoscopic retrograde cholangiopancreatography (ERCP); with placement of endoscopic stent into biliary or pancreatic duct, including pre- and post-dilation and guide wire passage, when performed, including sphincterotomy, when performed, each stent 63301, Esophagogastroduodenoscopy, flexible, transoral; with dilation of gastric/duodenal stricture(s) (eg, balloon, bougie) 42454, 59, Esophagogastroduodenoscopy, flexible, transoral; with biopsy, single or multiple 87959, 59, Intraluminal dilation of strictures and/or obstructions (eg, esophagus), radiological supervision and interpretation 23782, Endoscopic catheterization of the biliary ductal system, radiological supervision and interpretation 34439, 59, Fluoroscopy (separate procedure), up to 1 hour physician or other qualified health healthcare translator time Diagnosis Code(s): --- Professional --- K29.70, Gastritis, unspecified, without bleeding K31.1, Adult hypertrophic pyloric stenosis K26.4, Chronic or unspecified duodenal ulcer with hemorrhage K83.1, Obstruction of bile duct R17, Unspecified jaundice R74.8, Abnormal levels of other serum enzymes K83.8, Other specified diseases of biliary tract CPT copyright 2021 [employer]. All rights reserved. The codes documented in this report are preliminary and upon dental technician metal review may be revised to meet current compliance requirements. Yessi Ontiveros DO 06/22/2024 3:12:46 PM This report has been signed electronically. Note Initiated On: 06/22/2024 10:50 AM Number of Addenda: [address] PROVATION 06/22/2024 10:5 0 AM HAIR SPINNING MACHINE OPERATOR Yessi Ontiveros DO GI PROCEDURE ORDERAB LES [facility] PROVATION * CARDIAC EKG ORDER (06/21/2024 11:20 AM HAIR SPINNING MACHINE OPERATOR) Narrative 06/21/2024 11:20 AM HAIR SPINNING MACHINE OPERATOR Ordered by an unspecified provider. Scanned Document CARDIAC SERVICES ORD ERABLES * SARS-COV-2 (COVID-19)+INFLU A+B PCR RAPID (06/20/2024 7:59 AM HAIR SPINNING MACHINE OPERATOR) COVID-19 PCR Not detected Not detected 06/20/19 9:00 AM HAIR SPINNING MACHINE OPERATOR [facility] Influenza A Rapid ELIJAH Not Detected Not Detected 06/20/2024 9:00 AM HAIR SPINNING MACHINE OPERATOR [facility] Influenza B ELIJAH Rapid Not Detected Not Detected 06/20/2024 9:00 AM [facility] Microbiology SPECIMEN FROM NASOPHARYNGEAL STRUCTURE / Unknown Collection / Unknown 06/20/2024 7:59 AM HAIR SPINNING MACHINE OPERATOR 06/20/2024 8:16 AM HAIR SPINNING MACHINE OPERATOR Narrative [facility] - 06/20/2024 9:00 AM HAIR SPINNING MACHINE OPERATOR Influenza assay performed by [employer]. Results do not exclude the possibility of a mixed viral infection. NOTE: Detecting and identifying specific viral nucleic acids from individuals exhibiting signs and symptoms of respiratory infection aids in the diagnosis of respiratory infection, if used in conjunction with other clinical and laboratory findings. The results of this test should not be used as the sole basis for diagnosis, treatment, or patient management decisions. This nucleic acid amplification assay performance was validated by [facility]. This test has been authorized by the Food and Drug administration (FDA)under an Emergency Use Authorization (EUA). This test has been validated in accordance with the FDA's guidance document Policy for Diagnostic Testing in Laboratories Certified to perform High Complexity Testing under CLIA prior to Emergency Use Authorization for Coronavirus Disease-2019 during the Public Health Emergency issued on August 07, 2019. FDA independent review of this validation is pending. This test is only authorized for the duration of time the declaration that circumstances exist justifying the authorization of emergency use of in vitro diagnostic tests for detection of SARS-CoV-2 virus and/or diagnosis of COVID-19 infection under section 564(b)(1) of the Act, 21 U.S.C 360bbb-3 (b)(1), unless the authorization is terminated or revoked sooner. Fact Sheets for this EUA assay are available upon request. Clara Berrios MD LAB - MICROBIOLOGY O RDERABLES [facility] [address] [place] [address], [facility] [phone] * (ABNORMAL) CBC W/O DIFFERENTIAL (06/20/2024 5:08 AM [facility]) WBC 10.7 4.0 - 10.7 x10E9/L 06/20/2024 5:34 AM [facility] RBC Count 4.05(L) 4.30 - 5.80 x10E12/L 06/20/2024 5:34 AM [facility] Hemoglobin 12.3(L) 13.3 - 17.5 g/dL 06/20/2024 5:34 AM [facility] Hematocrit 35.0(L) 38.7 - 51.1 % 06/20/2024 5:34 AM [facility] MCV 86.4 80.0 - 98.0 fL 06/20/2024 5:34 AM [facility] MCH 30.4 26.7 - 33.6 pg 06/20/2024 5:34 AM [facility] MCHC 35.1 31.7 - 36.3 g/dL 06/20/2024 5:34 AM [facility] RDW-CV 17.9(H) 11.3 - 14.8 % 06/20/2024 5:34 AM [facility] Platelet Count 142(L) 150 - 420 x10E9/L 06/20/2024 5:34 AM [facility] MPV 9.7 7.8 - 11.4 fL 06/20/2024 5:34 AM [facility] Blood BLOOD SPECIMEN / Unknown Venipuncture / Unknown 06/20/2024 5:08 AM HAIR SPINNING MACHINE OPERATOR 06/20/2024 5:12 AM HAIR SPINNING MACHINE OPERATOR Dc Arias MD LAB - HEMATOLOGY ORD ERABLES Performing Organization Address [facility]/ZIP Co de Phone Number [address] [address], [facility] [phone] * (ABNORMAL) PHOSPHORUS BLOOD (06/20/2024 5:08 AM HAIR SPINNING MACHINE OPERATOR) Phosphorus 2.7(L) 2.8 - 5.1 mg/dL 06/20/2024 5:40 AM HAIR SPINNING MACHINE OPERATOR [facility] Blood BLOOD SPECIMEN / Unknown Venipuncture / Unknown 06/20/2024 5:08 AM HAIR SPINNING MACHINE OPERATOR 06/20/2024 5:12 AM HAIR SPINNING MACHINE OPERATOR Dc Arias MD LAB - CHEMISTRY HERMAN TOWNSEND Performing Organization Address [facility] Co de Phone Number [address] [address], [facility] [phone] * MAGNESIUM BLOOD (06/20/2024 5:08 AM HAIR SPINNING MACHINE OPERATOR) Only the most recent of2 resultswithin the time period is included. Magnesium 2.0 1.6 - 2.6 mg/dL 06/20/2024 5:40 AM HAIR SPINNING MACHINE OPERATOR [facility] Blood BLOOD SPECIMEN / Unknown Venipuncture / Unknown 06/20/2024 5:08 AM HAIR SPINNING MACHINE OPERATOR 06/20/2024 5:12 AM HAIR SPINNING MACHINE OPERATOR Dc Arias MD LAB - CHEMISTRY HERMAN TOWNSEND Performing Organization Address [facility]/ZIP Co de Phone Number [address] [address], [place] [phone] * CT Abdomen Pelvis W Contrast (06/20/2024 1:07 AM HAIR SPINNING MACHINE OPERATOR) Anatomical Region Laterality Modality Abdomen, Pelvis Computed Tomogra phy 06/20/2024 1:33 AM HAIR SPINNING MACHINE OPERATOR Impressions 06/20/2024 10:20 AM HAIR SPINNING MACHINE OPERATOR Impression: Compared to prior CT abdomen pelvis from 06/01/2024: 1.Interval increased moderate to severe intrahepatic and extrahepatic biliary ductal dilatation with focal narrowing at the confluence of the right and left hepatic ducts, with redemonstrated 1.5 cm enhancing mass. 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 Inflammatory stricture is thought to be less likely. Recommend endoscopic ultrasound and ERCP for further evaluation. 2.No evidence of metastatic disease in the abdomen or pelvis. 3.Decompressed gallbladder with sludge and small stones. 4. Prostatomegaly protruding into the bladder base. > Dictated by Rod Riley MD, PhD (group president). IMojgan MD have personally reviewed and interpreted this examination/study. > Interpreting Provider: Mojgan Kirk MD on 06/20/2024 10:20 AM Narrative 06/20/2024 10:20 AM HAIR SPINNING MACHINE OPERATOR PROCEDURE: CT ABDOMEN PELVIS W CONTRAST, DATE/TIME OF EXAM: 06/20/2024 1:08 AM, LOCATION [facility] INDICATION: R17: Jaundice R17: Total bilirubin, elevated ADDITIONAL CLINICAL INFORMATION: Ordering Provider Reason For Exam: eval for biliary obstruction COMPARISON: CT abdomen pelvis from 06/01/2024. TECHNIQUE: CT of the abdomen and pelvis was performed after the uneventful administration of 100 mL of Isovue 370 intravenous contrast according to standard protocol. Findings: Lower thorax: Lung bases: No pulmonary parenchymal or airway process is present. Partially visualized Heart/Pericardium: The cardiac chambers are normal in size. No pericardial fluid or thickening is present. Abdomen/pelvis: Liver/Gallbladder and Bile Ducts: Interval increased moderate to severe intrahepatic and extrahepatic biliary ductal dilatation with focal narrowing at the confluence of the right and left hepatic ducts, with suggestion of an enhancing mass measuring up to 1.5 cm (3/41). The extrahepatic common bile duct measures up to 12 mm in caliber (4/26). The liver otherwise appears normal. The portal vein is patent. The gallbladder is decompressed with hyperdense contents, likely representing sludge and small stones. Spleen: Multiple calcified granulomas are noted in the spleen, likely sequelae of prior granulomatous disease. Pancreas: Mild fatty atrophy of the pancreas is present. Adrenals: Normal. 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 Extensive colonic diverticulosis without evidence of diverticulitis is seen. Normal appendix. Mesentery/Peritoneum/Retroperitoneum: Normal. No free air, free fluid, or lymphadenopathy. Abdominal Vasculature: Mild calcifications of the aorta and its branch vessels. Pelvis: The bladder is partially distended and appears normal. The prostate is enlarged measuring 5.4 cm in transverse diameter and protrudes into the bladder base. Bones: No acute fracture or osseous lesion. Mild multilevel degenerative changes are seen in the spine. Soft tissues: Normal. There is no bowel or fat containing inguinal hernia. There is no evidence of inguinal lymphadenopathy. Procedure Note Abeba Kirk MD - 06/20/2024 PROCEDURE: CT ABDOMEN PELVIS W CONTRAST, DATE/TIME OF EXAM: 06/20/2024 1:08 AM, LOCATION [facility] INDICATION: R17: Jaundice R17: Total bilirubin, elevated ADDITIONAL CLINICAL INFORMATION: Ordering Provider Reason For Exam: eval for biliary obstruction COMPARISON: CT abdomen pelvis from 06/01/2024. TECHNIQUE: CT of the abdomen and pelvis was performed after theuneventful administration of 100 mL of Isovue 370 intravenous contrast according to standard protocol. Findings: Lower thorax: Lung bases: No pulmonary parenchymal or airway process is present. Partially visualized Heart/Pericardium: The cardiac chambers are normal in size. No pericardial fluid orthickening is present. Abdomen/pelvis: Liver/Gallbladder and Bile Ducts: Interval increased moderate to severe intrahepatic and extrahepaticbiliary ductal dilatation with focal narrowing at the confluence of the rightand left hepatic ducts, with suggestion of an enhancing mass measuring up to 1.5 cm (3/41). The extrahepatic common bile duct measures up to 12 mm in caliber (/). The liver otherwise appears normal. The portal vein is patent. The gallbladder is decompressed with hyperdense contents, likely representing sludge and small stones. Spleen: Multiple calcified granulomas are noted in the spleen, likely sequelaeof prior granulomatous disease. Pancreas: Mild fatty atrophy of the pancreas is present. Adrenals: Normal. 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 Redemonstrated malrotated and ectopic right pelvic kidneywith no hydronephrosis Gastrointestinal: The stomach and visualized loops of small bowel are unremarkable.Extensive colonic diverticulosis without evidence of diverticulitis is seen.Normal appendix. Mesentery/Peritoneum/Retroperitoneum: Normal. No free air, free fluid, or lymphadenopathy. Abdominal Vasculature: Mild calcifications of the aorta and its branch vessels. Pelvis: The bladder is partially distended and appears normal. The prostate is enlarged measuring 5.4 cm in transverse diameter and protrudes into the bladder base. Bones: No acute fracture or osseous lesion. Mild multilevel degenerativechanges are seen in the spine. Soft tissues: Normal. There is no bowel or fat containing inguinal hernia. There is no evidence of inguinal lymphadenopathy. Impression: Compared to prior CT abdomen pelvis from 06/01/2024: 1.Interval increased moderate to severe intrahepatic and extrahepatic biliary ductal dilatation with focal narrowing at the confluence of the right and left hepatic ducts, with redemonstrated 1.5 cm enhancing mass. 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 Inflammatory stricture is thought to be less likely. Recommend endoscopic ultrasound and ERCP for further evaluation. 2.No evidence of metastatic disease in the abdomen or pelvis. 3.Decompressed gallbladder with sludge and small stones. 4. Prostatomegaly protruding into the bladder base. > Dictated by Rod Riley MD, PhD (group president). IMojgan MD have personally reviewed and interpreted this examination/study. > Interpreting Provider: Mojgan Kirk MD on 06/20/2024 10:20 AM Kirstin Vang MD CT ORDERABLES * TROPONIN-I HIGH SENSITIVE REFLEX 1HOUR (06/20/2024 12:47 AM HAIR SPINNING MACHINE OPERATOR) Troponin I High Sensitive <3 <=35 ng/L 06/20/2024 1:39 AM [facility] Delta Troponin I HS 06/20/2024 1:39 AM [facility] Comment:Delta value intentio lanny not calculated. Baseline to 1 hour specimen collection interval exceeded. Blood BLOOD SPECIMEN / Unknown Venipuncture / Unknown 06/20/2024 12:47 AM HAIR SPINNING MACHINE OPERATOR 06/20/2024 1:01 AM HAIR SPINNING MACHINE OPERATOR Arianna Brady PA-C LAB - BINDER CUTTER RY ORDERABLES [address] [address], [facility] [phone] * (ABNORMAL) URINALYSIS REFLEX MICROSCOPIC REFLEX CULTURE (06/19/2024 9:49 PM HAIR SPINNING MACHINE OPERATOR) Color UA Jojo(A) Straw, Yellow 06/19/2024 10:13 PM [facility] Clarity UA Slt Cloudy(A) Clear 06/19/2024 10:13 PM [facility] Specific [place] UA 1.018 1.005 - 1.030 06/19/2024 10:13 PM [facility] pH UA 5.0 5.0 - 8.0 pH 06/19/2024 10:13 PM [facility] Protein UA Negative Negative 06/19/2024 10:13 PM [facility] Glucose UA Negative Negative 06/19/2024 10:13 PM [facility] Ketone UA Negative Negative 06/19/2024 10:13 PM [facility] Bilirubin UA Negative Negative 06/19/2024 10:13 PM [facility] Blood UA Negative Negative 06/19/2024 10:13 PM [facility] Nitrite UA Negative Negative 06/19/2024 10:13 PM [facility] Leukocyte Esterase Negative Negative 06/19/2024 10:13 PM [facility] Urobilinogen UA Negative Negative mg/dL 06/19/2024 10:13 PM [facility] Comment UA Microscopic not indicated. 06/19/2024 10:13 PM [facility] Urine URINE SPECIMEN OBTAINED BY CLEAN CATCH PROCEDURE / Unknown Collection / Unknown 06/19/2024 9:49 PM HAIR SPINNING MACHINE OPERATOR 06/19/2024 9:52 PM HAIR SPINNING MACHINE OPERATOR Narrative [facility] - 06/19/2024 10:13 PM HAIR SPINNING MACHINE OPERATOR Arianna Brady PA-C LAB - URINALY SIS ORDERABLES [address] [phone] [phone] * CT Cervical Spine Wo Contrast (06/19/2024 7:15 PM HAIR SPINNING MACHINE OPERATOR) Anatomical Region Laterality Modality Spine Computed Tomogra phy 06/19/2024 7:13 PM HAIR SPINNING MACHINE OPERATOR Impressions 06/19/2024 7:43 PM HAIR SPINNING MACHINE OPERATOR IMPRESSION: 1.No acute intracranial hemorrhage, midline shift, or significant mass effect. 2.No evidence of acute fracture in the cervical spine. 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 > Interpreting Provider: Celestina Jansne MD on 06/19/2024 7:43 PM Narrative 06/19/2024 7:43 PM HAIR SPINNING MACHINE OPERATOR PROCEDURE: CT HEAD WO CONTRAST, CT CERVICAL SPINE WO CONTRAST, DATE/TIME OF EXAM: 06/19/2024 6:57 PM, LOCATION [facility] INDICATION: W19.XXXA: Fall, initial encounter EXAMINATION: 1.Computed tomography (CT) of the head without contrast 2.CT of the cervical spine without contrast ADDITIONAL CLINICAL INFORMATION: Ordering Provider Reason For Exam: R/O bleed or fracture (accession [id number]), r/o fracture (accession [id number]) Technologist Note: None. Additional: None. TECHNIQUE: CT of the head and cervical spine was performed without contrast according to standard protocol. CT dose reduction technique was used, including Automated Exposure Control. COMPARISON: No prior study is available for comparison at the time of this dictation. FINDINGS: Head: No acute intra- or extra-axial fluid collections are identified. There is rzbz-cf-jqeuwzhx cerebral volume loss with associated ex vacuo ventricular dilatation. The basilar cisterns are patent. No mass effect or midline shift is seen. The longoria-white matter differentiation is normal. Periventricular white matter hypoattenuation is indicative of chronic small vessel ischemic disease. There is vascular calcification of the carotid siphons. No acute calvarial fracture is identified. The orbits appear normal. 79 scleral plaques are noted. There is mild paranasal sinus disease. Mild deformity of the nasal septum. The mastoid air cells are clear. No soft tissue abnormality is identified. Cervical spine: Mild anterolisthesis of C4 on C5 and C7 on T1. Mild dextrocurvature of the cervical spine and mild levocurvature of the cervicothoracic junction. The alignment is otherwise maintained. Vertebral bodies are normal in height without evidence of acute fracture. Other than advanced middle atlantoaxial joint osteoarthritis, the craniocervical junction appears normal. There is advanced degenerative disc disease. Mild to moderate central canal stenosis is seen. Prominent thickening posterior to the odontoid process possibly representing pannus formation or other inflammatory process. There are varying degrees of advanced uncovertebral joint osteoarthritis with the same degree of neural foraminal stenosis at these levels. There is atherosclerotic calcification of the carotid bifurcations. There is centrilobular emphysema in the lung apices. Brain injury guidelines: Skull fracture: No Subdural hematoma: No subdural hematoma. Epidural hematoma: No epidural hematoma. Intraparenchymal hemorrhage: No intraparenchymal hemorrhage. Subarachnoid hemorrhage: No subarachnoid hemorrhage. Intraventricular hemorrhage: No. Midline shift: No. Procedure Note Celestina Jansen MD - 06/19/2024 PROCEDURE: CT HEAD WO CONTRAST, CT CERVICAL SPINE WO CONTRAST,DATE/TIME OF EXAM: 06/19/2024 6:57 PM, LOCATION [facility] INDICATION: W19.XXXA: Fall, initial encounter EXAMINATION: 1.Computed tomography (CT) of the head without contrast 2.CT of the cervical spine without contrast ADDITIONAL CLINICAL INFORMATION: Ordering Provider Reason For Exam: R/O bleed or fracture (accession [id number]), r/o fracture (accession [id number]) Technologist Note: None. Additional: None. TECHNIQUE: CT of the head and cervical spine was performed withoutcontrast according to standard protocol. CT dose reduction technique was used, including Automated Exposure Control. COMPARISON: No prior study is available for comparison at the time ofthis dictation. FINDINGS: Head: No acute intra- or extra-axial fluid collections are identified. Thereis lvyu-ya-migtpojj cerebral volume loss with associated ex vacuoventricular dilatation. The basilar cisterns are patent. No mass effect or midline shift is seen. The longoria-white matter differentiation is normal. Periventricular white matter hypoattenuation is indicative of chronicsmall vessel ischemic disease. There is vascular calcification of the carotid siphons. No acute calvarial fracture is identified. The orbits appear normal. 79 scleral plaques are noted. There is mild paranasal sinus disease. Mild deformity of the nasal septum. The mastoid air cells are clear. No soft tissue abnormality is identified. Cervical spine: Mild anterolisthesis of C4 on C5 and C7 on T1. Mild dextrocurvature ofthe cervical spine and mild levocurvature of the cervicothoracic junction.The alignment is otherwise maintained. Vertebral bodies are normal in height without evidence of acute fracture. Other than advanced middleatlantoaxial joint osteoarthritis, the craniocervical junction appears normal. Thereis advanced degenerative disc disease. Mild to moderate central canalstenosis is seen. Prominent thickening posterior to the odontoid process possibly representing pannus formation or other inflammatory process. There are varying degrees of advanced uncovertebral joint osteoarthritis with the same degree of neural foraminal stenosis at these levels. There is atherosclerotic calcification of the carotid bifurcations. There is centrilobular emphysema in the lung apices. Brain injury guidelines: Skull fracture: No Subdural hematoma: No subdural hematoma. Epidural hematoma: No epidural hematoma. Intraparenchymal hemorrhage: No intraparenchymal hemorrhage. Subarachnoid hemorrhage: No subarachnoid hemorrhage. Intraventricular hemorrhage: No. Midline shift: No. IMPRESSION: 1.No acute intracranial hemorrhage, midline shift, or significant mass effect. 2.No evidence of acute fracture in the cervical spine. 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 > Interpreting Provider: Celestina Jansen MD on 06/19/2024 7:43 PM Arianna Brady PA-C CT ORDERABLES * CT Head Wo Contrast (06/19/2024 7:15 PM HAIR SPINNING MACHINE OPERATOR) Anatomical Region Laterality Modality Head Computed Tomogra phy 06/19/2024 7:13 PM HAIR SPINNING MACHINE OPERATOR Impressions 06/19/2024 7:43 PM HAIR SPINNING MACHINE OPERATOR IMPRESSION: 1.No acute intracranial hemorrhage, midline shift, or significant mass effect. 2.No evidence of acute fracture in the cervical spine. 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 > Interpreting Provider: Celestina Jansen MD on 06/19/2024 7:43 PM Narrative 06/19/2024 7:43 PM HAIR SPINNING MACHINE OPERATOR PROCEDURE: CT HEAD WO CONTRAST, CT CERVICAL SPINE WO CONTRAST, DATE/TIME OF EXAM: 06/19/2024 6:57 PM, LOCATION [facility] INDICATION: W19.XXXA: Fall, initial encounter EXAMINATION: 1.Computed tomography (CT) of the head without contrast 2.CT of the cervical spine without contrast ADDITIONAL CLINICAL INFORMATION: Ordering Provider Reason For Exam: R/O bleed or fracture (accession [id number]), r/o fracture (accession [id number]) Technologist Note: None. Additional: None. TECHNIQUE: CT of the head and cervical spine was performed without contrast according to standard protocol. CT dose reduction technique was used, including Automated Exposure Control. COMPARISON: No prior study is available for comparison at the time of this dictation. FINDINGS: Head: No acute intra- or extra-axial fluid collections are identified. There is akca-bm-wsuzaowb cerebral volume loss with associated ex vacuo ventricular dilatation. The basilar cisterns are patent. No mass effect or midline shift is seen. The longoria-white matter differentiation is normal. Periventricular white matter hypoattenuation is indicative of chronic small vessel ischemic disease. There is vascular calcification of the carotid siphons. No acute calvarial fracture is identified. The orbits appear normal. 79 scleral plaques are noted. There is mild paranasal sinus disease. Mild deformity of the nasal septum. The mastoid air cells are clear. No soft tissue abnormality is identified. Cervical spine: Mild anterolisthesis of C4 on C5 and C7 on T1. Mild dextrocurvature of the cervical spine and mild levocurvature of the cervicothoracic junction. The alignment is otherwise maintained. Vertebral bodies are normal in height without evidence of acute fracture. Other than advanced middle atlantoaxial joint osteoarthritis, the craniocervical junction appears normal. There is advanced degenerative disc disease. Mild to moderate central canal stenosis is seen. Prominent thickening posterior to the odontoid process possibly representing pannus formation or other inflammatory process. There are varying degrees of advanced uncovertebral joint osteoarthritis with the same degree of neural foraminal stenosis at these levels. There is atherosclerotic calcification of the carotid bifurcations. There is centrilobular emphysema in the lung apices. Brain injury guidelines: Skull fracture: No Subdural hematoma: No subdural hematoma. Epidural hematoma: No epidural hematoma. Intraparenchymal hemorrhage: No intraparenchymal hemorrhage. Subarachnoid hemorrhage: No subarachnoid hemorrhage. Intraventricular hemorrhage: No. Midline shift: No. Procedure Note Celestina Jansen MD - 06/19/2024 PROCEDURE: CT HEAD WO CONTRAST, CT CERVICAL SPINE WO CONTRAST,DATE/TIME OF EXAM: 06/19/2024 6:57 PM, LOCATION [facility] INDICATION: W19.XXXA: Fall, initial encounter EXAMINATION: 1.Computed tomography (CT) of the head without contrast 2.CT of the cervical spine without contrast ADDITIONAL CLINICAL INFORMATION: Ordering Provider Reason For Exam: R/O bleed or fracture (accession [id number]), r/o fracture (accession [id number]) Technologist Note: None. Additional: None. TECHNIQUE: CT of the head and cervical spine was performed withoutcontrast according to standard protocol. CT dose reduction technique was used, including Automated Exposure Control. COMPARISON: No prior study is available for comparison at the time ofthis dictation. FINDINGS: Head: No acute intra- or extra-axial fluid collections are identified. Thereis lanl-jk-nzzitfzp cerebral volume loss with associated ex vacuoventricular dilatation. The basilar cisterns are patent. No mass effect or midline shift is seen. The longoria-white matter differentiation is normal. Periventricular white matter hypoattenuation is indicative of chronicsmall vessel ischemic disease. There is vascular calcification of the carotid siphons. No acute calvarial fracture is identified. The orbits appear normal. 79 scleral plaques are noted. There is mild paranasal sinus disease. Mild deformity of the nasal septum. The mastoid air cells are clear. No soft tissue abnormality is identified. Cervical spine: Mild anterolisthesis of C4 on C5 and C7 on T1. Mild dextrocurvature ofthe cervical spine and mild levocurvature of the cervicothoracic junction.The alignment is otherwise maintained. Vertebral bodies are normal in height without evidence of acute fracture. Other than advanced middleatlantoaxial joint osteoarthritis, the craniocervical junction appears normal. Thereis advanced degenerative disc disease. Mild to moderate central canalstenosis is seen. Prominent thickening posterior to the odontoid process possibly representing pannus formation or other inflammatory process. There are varying degrees of advanced uncovertebral joint osteoarthritis with the same degree of neural foraminal stenosis at these levels. There is atherosclerotic calcification of the carotid bifurcations. There is centrilobular emphysema in the lung apices. Brain injury guidelines: Skull fracture: No Subdural hematoma: No subdural hematoma. Epidural hematoma: No epidural hematoma. Intraparenchymal hemorrhage: No intraparenchymal hemorrhage. Subarachnoid hemorrhage: No subarachnoid hemorrhage. Intraventricular hemorrhage: No. Midline shift: No. IMPRESSION: 1.No acute intracranial hemorrhage, midline shift, or significant mass effect. 2.No evidence of acute fracture in the cervical spine. 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 > Interpreting Provider: Celestina Jansen MD on 06/19/2024 7:43 PM Arianna Brady PA-C CT ORDERABLES * SARS-COV-2 (COVID-19) FLU A/B RSV PCR RAPID (06/19/2024 6:34 PM HAIR SPINNING MACHINE OPERATOR) COVID-19 PCR Not detected Not detected 06/19/19 7:16 PM HAIR SPINNING MACHINE OPERATOR [facility] Influenza A PCR Not detected Not detected 06/19/2024 7:16 PM [facility] Influenza B PCR Not detected Not detected 06/19/2024 7:16 PM [facility] RSV PCR Not detected Not detected 06/19/2024 7:16 PM [facility] Microbiology SPECIMEN FROM NASOPHARYNGEAL STRUCTURE / Unknown Collection / Unknown 06/19/2024 6:34 PM HAIR SPINNING MACHINE OPERATOR 06/19/2024 6:37 PM HAIR SPINNING MACHINE OPERATOR [facility] - 06/19/2024 7:16 PM HAIR SPINNING MACHINE OPERATOR This nucleic acid amplification assay has been authorized by the Food and Drug administration (FDA) under an Emergency Use Authorization (EUA). This test is only authorized for the duration of time the declaration that circumstances exist justifying the authorization of emergency use of in vitro diagnostic tests for detection of SARS-CoV-2 virus and/or diagnosis of COVID-19 infection under section 564(b)(1) of the Act, 21 U.S.C 360bbb-3 (b)(1), unless the authorization is terminated or revoked sooner. Fact Sheets for this EUA assay are available upon request. Arianna Brady PA-C LAB - MICROBI OLOGY ORDERABLES [facility] [address] [place] [address], [facility] [phone] * XR CHEST 2VW (06/19/2024 6:32 PM HAIR SPINNING MACHINE OPERATOR) Anatomical Region Laterality Modality Chest Digital Radiogra phy 06/19/2024 6:58 PM HAIR SPINNING MACHINE OPERATOR Impressions 06/20/2024 11:38 AM HAIR SPINNING MACHINE OPERATOR IMPRESSION: No acute findings within the chest. Saul Sterling MD have personally reviewed and interpreted this examination/study. > Interpreting Provider: Saul Pozo MD on 06/20/2024 11:38 AM Narrative 06/20/2024 11:38 AM HAIR SPINNING MACHINE OPERATOR PROCEDURE: XR CHEST 2VW, DATE/TIME OF EXAM: 06/19/2024 6:32 PM, LOCATION [facility] INDICATION: R53.1: Weakness ADDITIONAL CLINICAL INFORMATION: Ordering Provider Reason For Exam: r/o effusion Technologist Note: Additional: COMPARISON: None. TECHNIQUE: Frontal and lateral radiographs of the chest. FINDINGS: The heart is normal in size. Bilateral lungs are clear without evidence of focal consolidation. There is no pneumothorax or pleural effusion. The upper abdomen is normal. No bone abnormality is seen. Procedure Note Saul Pozo MD - 06/20/2024 PROCEDURE: XR CHEST 2VW, DATE/TIME OF EXAM: 06/19/2024 6:32 PM, LOCATION [facility] INDICATION: R53.1: Weakness ADDITIONAL CLINICAL INFORMATION: Ordering Provider Reason For Exam: r/o effusion Technologist Note: Additional: COMPARISON: None. TECHNIQUE: Frontal and lateral radiographs of the chest. FINDINGS: The heart is normal in size. Bilateral lungs are clear without evidence of focal consolidation. There is no pneumothorax or pleural effusion. The upper abdomen is normal. No bone abnormality is seen. IMPRESSION: No acute findings within the chest. Saul Sterling MD have personally reviewed and interpreted this examination/study. > Interpreting Provider: Saul Pozo MD on 06/20/2024 11:38 AM Arianna Brady PA-C DIAGNOSTIC IM AGING ORDERABLES * EKG 12-LEAD (06/19/2024 6:32 PM HAIR SPINNING MACHINE OPERATOR) Ventricular Rate 74 BPM [facility] Atrial Rate 74 BPM [facility] P-R Interval 156 ms [facility] QRS Duration ms 88 ms [facility] Q-T Interval ms 384 ms [facility] QTC Calculation (Bezet) 426 ms [facility] Calculated P Shanks 64 degrees [facility] Calculated R Shanks 23 degrees [facility] Calculated T Shanks 49 degrees [facility] Interpretation EKG NORMAL SINUS RHYTHM NORMAL ECG NO PREVIOUS ECGS AVAILABLE Confirmed by SEGUN TERRY MD ([id number]) on 06/20/2024 11:22:34 AM [facility] 06/19/2024 6:32 PM HAIR SPINNING MACHINE OPERATOR 06/20/2024 11:22 AM HAIR SPINNING MACHINE OPERATOR Arianna Brady PA-C ECG ORDERABLE [place] [facility] [place] TROPONIN-I HIGH SENSITIVE BASELINE + 1HR (06/19/2024 6:28 PM HAIR SPINNING MACHINE OPERATOR) [facility] Troponin I High Sensitive <3 <=35 ng/L 06/19/2024 7:21 PM HAIR SPINNING MACHINE OPERATOR [facility] Blood BLOOD SPECIMEN / Unknown Venipuncture / Unknown 06/19/2024 6:28 PM HAIR SPINNING MACHINE OPERATOR 06/19/2024 6:34 PM HAIR SPINNING MACHINE OPERATOR Arianna Brady PA-C LAB - [facility] RY ORDERABLES [address] [id number] [phone] * TSH REFLEX FREE T4 (06/19/2024 6:28 PM HAIR SPINNING MACHINE OPERATOR) Pathologist [facility] TSH 0.356 0.350 - 4.940 uIU/mL 06/19/2024 7:20 PM HAIR SPINNING MACHINE OPERATOR [facility] Blood BLOOD SPECIMEN / Unknown Venipuncture / Unknown 06/19/2024 6:28 PM HAIR SPINNING MACHINE OPERATOR 06/19/2024 6:34 PM HAIR SPINNING MACHINE OPERATOR Arianna Brady PA-C LAB - [facility] RY ORDERABLES [facility] [address] [place] [address], [place] [phone] * AMMONIA (06/19/2024 6:28 PM HAIR SPINNING MACHINE OPERATOR) Ammonia 67 <=72 umol/L 06/19/2024 7:19 PM HAIR SPINNING MACHINE OPERATOR [facility] Blood BLOOD SPECIMEN / Unknown Venipuncture / Unknown 06/19/2024 6:28 PM HAIR SPINNING MACHINE OPERATOR 06/19/2024 6:33 PM HAIR SPINNING MACHINE OPERATOR Arianna Brady PA-C LAB - [facility] R[facility] ORDERABLES [place] [address] [place] [address], [place] [phone] from Last 3 Months Advance Directives * Full Code (Latest Code Status on File) Date Activated Date Inactivated Comments 06/20/2024 3:25 AM 06/20/2024 4:00 PM * Full Code Date Activated Date Inactivated Comments 06/01/2024 4:21 AM 06/01/2024 10:48 PM Care Teams Home Theater Expert Relationship Specialty Start Date End Date Flo Torres MD [address] [place] [id number] PCP - General 02/05/21
--- OUTSIDE RECORDS SUMMARY | 2024-09-17 12:44 | XMS_ITS | Encounter Summary ---
Author Organization [facility] Address [facility] [place] [address] Care Team Providers Care Dental Aide Name Role Phone Flo Torres MD Primary Care Provider [phone] Reason for Visit * Reason Comments Results Encounter Details Date Type Department Care Team ([facility] Contact Info) Description 07/07/2024 Telephone [facility] - [address] [place] [address] Kat Adkins, RN Results Social History Tobacco Use Types Packs/Day Years Used Date Smoking Tobacco: Former Cigarettes Q uit: 1989 Smokeless Tobacco: Never Alcohol Use Standard Drinks/Week Comments Not Currently 0 (1 standard drink = 0.6 oz pur e alcohol) Sex and Gender Information Value Date Recorded Sex Assigned at Not on file Gender Identity Not on file Sexual Orientation Not on file documented as of this encounter Functional Status Functional Status Response Date of Assess ment Is person deaf or have serious hearing difficult y? No 06/22/2024 Is person blind or have serious difficulty seein g? No 06/22/2024 Does person have serious dif ficulty walking/climbing stairs? Yes 06/22/2024 Does person have difficulty dressing/bathing? Ye s 06/22/2024 Does person have difficulty doing errands alone? Yes 06/22/2024 Cognitive Status Response Date of Assessm ent Does person have difficulty concentrating/remembering/making decisions? 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 Kat reports pathology sent to [facility]. Inquiring if report is back. RN reports nothing posted to [facility]. RN encourages a call to Dr. Cannon to inquire if report returned from [facility]. Kat reports pt to be exhausted, and denies interest in traveling to [facility] for treatment if recommended. [facility] message sent to Dr. Ontiveros. ERVATION POLICY ANALYST documented in this encounter Plan of Treatment Not on file documented as of this encounter Visit Diagnoses Not on filedocumented in this encounter Care Teams Dental Aide Relationship Specialty Start Date End Date Flo Torres MD [address] [place] [id number] PCP - General 02/05/21 documented as of this encounter
--- OUTSIDE RECORDS SUMMARY | 2024-09-17 12:44 | XMS_ITS | Clinical Summary ---
Author Organization [facility] Address [address] [place] [address] Care Team Providers Care Traffic Assistant Name Role Phone Antonietta Veronica MD Primary Care Provider [phone] Allergies Active Allergy Reactions Criticality Noted Date Comments Terbutaline Shakiness 07/20/2024 Medications esomeprazole (NEXIUM) 40 MG capsule Take 1 capsule (40 mg total) by mouth. 5 09/21/19 25 Active finasteride (PROSCAR) 5 MG tablet Take 1 tablet (5 mg total) by mouth daily. Active ALPRAZolam (XANAX) 0.25 MG tablet TAKE 1-2 TABLETS BY MOUTH 1 HOUR PRIOR TO PROCEDURE AND 1-2 TABLETS 5 MINUTES PRIOR TO PROCEDURE. 4 Active amoxicillin-cla vulanate (AUGMENTIN) 875-125 MG tablet Take 1 tablet (875 mg total) by mouth every 12 (twelve) hours. 5 Active escitalopram (LEXAPRO) 10 MG tablet Take 1 tablet (10 mg total) by mouth daily. Active vitamin D3 (CHOLECALCIFERO L) 25 mcg tablet Take 2 tablets (2,000 Units total) by mouth daily. Active cholestyramine (QUESTRAN) 4 G packet Take 1 packet (4 g total) by mouth daily. 4 Active vitamin B-12 (CYANOCOBALAMIN ) (CYANOCOBALAMIN ) 1000 mcg tablet Take 1 tablet (1,000 mcg total) by mouth daily. Active NOVOLOG FLEXPEN 100 UNIT/ML injection (PEN) Inject 5 Units into the skin. 4 Active insulin glargine (LANTUS) 100 UNIT/ML injection (PEN) Inject 10 Units into the skin. Active memantine (NAMENDA) 10 MG tablet Take 0.5 tablets (5 mg total) by mouth daily. 4 Active methocarbamol (ROBAXIN) 500 MG tablet Take 1 tablet (500 mg total) by mouth every 6 (six) hours as needed. 5 Active mirtazapine (REMERON) 45 MG tablet Take 1 tablet (45 mg total) by mouth nightly at bedtime. 4 Active tamsulosin (FLOMAX) 0.4 MG Cap Take 1 capsule (0.4 mg total) by mouth daily. Active ursodiol (ABILIO FORTE) 500 MG tablet Take 1 tablet (500 mg total) by mouth 2 (two) times daily. 5 Active aspirin 81 MG chewable tablet Chew 1 tablet (81 mg total) by mouth daily. 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 Encounters Date Type Department Care Team Description 09/10/2024 9:30 AM CDT - 09/10/2024 11:59 PM CDT Hospital Encounter [facility] Radiation Oncology at [address] [address] Raz Dowd MD Discharge Disposition: Home or Self Care (Routine Discharge) 09/09/2024 9:30 AM CDT - 09/09/2024 11:59 PM CDT Hospital Encounter [facility] Radiation Oncology at [address] [address] Raz Dowd MD Discharge Disposition: Home or Self Care (Routine Discharge) 09/09/2024 Travel 09/08/2024 9:30 AM CDT - 09/08/2024 11:59 PM CDT Hospital Encounter [facility] Radiation Oncology at [address] [address] Raz Dowd MD Discharge Disposition: Home or Self Care (Routine Discharge) 09/08/2024 Travel 09/07/2024 9:30 AM CDT - 09/07/2024 11:59 PM CDT Hospital Encounter [facility] Radiation Oncology at [address] [address] Raz Dowd MD Discharge Disposition: Home or Self Care (Routine Discharge) 09/06/2024 9:30 AM CDT - 09/06/2024 11:59 PM CDT Hospital Encounter [facility] [place] at [address] [address] Raz Dowd MD Discharge Disposition: Home or Self Care (Routine Discharge) 09/06/2024 Travel 09/03/2024 9:30 AM CDT - 09/03/2024 11:59 PM CDT Hospital Encounter [facility] [place] at [address] [address] Raz Dowd MD Discharge Disposition: Home or Self Care (Routine Discharge) 09/03/2024 Travel 09/02/2024 9:30 AM CDT - 09/02/2024 11:59 PM CDT Hospital Encounter [facility] at [address] [address] Raz Dowd MD Discharge Disposition: Home or Self Care (Routine Discharge) 09/02/2024 Travel 09/01/2024 9:30 AM CDT - 09/01/2024 11:59 PM CDT Hospital Encounter [facility] [place] at [address] [address] Raz Dowd MD Discharge Disposition: Home or Self Care (Routine Discharge) 08/31/2024 9:30 AM CDT - 08/31/2024 11:59 PM CDT Hospital Encounter [facility] at [address] [address] Raz Dowd MD Discharge Disposition: Home or Self Care (Routine Discharge) 08/31/2024 Travel 08/30/2024 9:30 AM CDT - 08/30/2024 11:59 PM CDT Hospital Encounter [facility] [place] at [address] [address] Raz Dowd MD Discharge Disposition: Home or Self Care (Routine Discharge) 08/30/2024 Travel 08/27/2024 9:25 AM CDT - 08/27/2024 11:59 PM CDT Hospital Encounter [facility] at [address] [address] Raz Dowd MD Discharge Disposition: Home or Self Care (Routine Discharge) 08/26/2024 9:30 AM CDT - 08/26/2024 11:59 PM CDT Hospital Encounter [facility] Radiation Oncology at [address] [address] Raz Dowd MD Discharge Disposition: Home or Self Care (Routine Discharge) 08/26/2024 Travel 08/25/2024 9:30 AM CDT - 08/25/2024 11:59 PM CDT Hospital Encounter [facility] Radiation Oncology at [address] [address] Raz Dowd MD Discharge Disposition: Home or Self Care (Routine Discharge) 08/25/2024 Travel 08/24/2024 9:21 AM CDT - 08/24/2024 11:59 PM CDT Hospital Encounter [facility] at [address] [address] Raz Dowd MD Discharge Disposition: Home or Self Care (Routine Discharge) 08/23/2024 11:30 AM CDT - 08/23/2024 11:59 PM CDT Hospital Encounter [facility] Radiation Oncology at [address] [address] Raz Dowd MD Discharge Disposition: Home or Self Care (Routine Discharge) 08/23/2024 Travel 08/19/2024 5:22 PM CDT - 08/19/2024 11:59 PM CDT Hospital Encounter [facility] [address] [place] [address] Antonietta Veronica MD Discharge Disposition: Home or Self Care (Routine Discharge) 08/19/2024 Orders Only [facility] [address] [place] [address] Antonietta Veronica MD 08/18/2024 12:30 PM CDT - 08/18/2024 11:59 PM CDT Hospital Encounter [facility] at [address] [address] Raz Dowd MD Discharge Disposition: Home or Self Care (Routine Discharge) 08/18/2024 12:05 PM CDT - 08/18/2024 12:29 PM CDT Hospital Encounter [facility] [address] [place] [address] Raz Dodw MD Discharge Disposition: Home or Self Care (Routine Discharge) 08/18/2024 9:29 AM CDT - 08/18/2024 12:04 PM CDT Hospital Encounter [facility] [address] [place] [address] Antonietta Veronica MD Discharge Disposition: Home or Self Care (Routine Discharge) 08/18/2024 Orders Only [facility] [address] [place] [address] Antonietta Veronica MD 08/17/2024 11:00 AM CDT - 08/17/2024 11:59 PM CDT Hospital Encounter [facility] Radiation Oncology at [address] [address] Raz Dowd MD Discharge Disposition: Home or Self Care (Routine Discharge) 08/17/2024 Travel 2024 9:24 AM ASSISTANT STORE DIRECTOR - 2024 11:59 PM ASSISTANT STORE DIRECTOR Hospital Encounter [facility] [address] [place] [address] Raz Dowd MD Discharge Disposition: Home or Self Care (Routine Discharge) 2024 Travel 08/03/2024 10:52 AM ASSISTANT STORE DIRECTOR - 08/03/2024 11:59 PM ASSISTANT STORE DIRECTOR Hospital Encounter [facility] Radiation Oncology at [address] [place] [address] Raz Dowd MD Discharge Disposition: Home or Self Care (Routine Discharge) 08/03/2024 Travel 07/23/2024 9:53 AM ASSISTANT STORE DIRECTOR - 07/23/2024 11:59 PM ASSISTANT STORE DIRECTOR Hospital Encounter [facility] [id number] [place] [address] Antonietta Veronica MD Discharge Disposition: Home or Self Care (Routine Discharge) 07/23/2024 Orders Only [facility] [id number] [place] [address] Antonietta Veronica MD 07/20/2024 11:00 AM ASSISTANT STORE DIRECTOR Initial Consult [address] [place] [address] Rachael Rocha MD Consult (Possible cholangiocarcinoma) 07/20/2024 Travel 07/16/2024 12:38 PM ASSISTANT STORE DIRECTOR - 07/16/2024 11:59 PM ASSISTANT STORE DIRECTOR Hospital Encounter [facility] [id number] [place] [address] Antonietta Veronica MD Discharge Disposition: Home or Self Care (Routine Discharge) 07/16/2024 Orders Only [facility] [id number] [place] [address] Antonietta Veronica MD 07/15/2024 12:19 PM ASSISTANT STORE DIRECTOR - 07/15/2024 11:59 PM ASSISTANT STORE DIRECTOR Hospital Encounter [facility] [place] [address] Antonietta Veronica MD Discharge Disposition: Home or Self Care (Routine Discharge) 07/15/2024 Travel 07/02/2024 1:12 PM ASSISTANT STORE DIRECTOR - 07/02/2024 11:59 PM ASSISTANT STORE DIRECTOR Hospital Encounter [facility] [address] [place] [address] Antonietta Veronica MD Discharge Disposition: Home or Self Care (Routine Discharge) 07/02/2024 Orders Only [facility] [address] [place] [place] [address] Antonietta Veronica MD 06/19/2024 2:43 PM ASSISTANT STORE DIRECTOR - 06/19/2024 11:59 PM ASSISTANT STORE DIRECTOR Hospital Encounter [facility] [address] [place] [address] Antonietta Veronica MD Discharge Disposition: Home or Self Care (Routine Discharge) 06/19/2024 Orders Only [facility] [address] [place] [address] Antonietta Veronica MD from Last 3 Months Social History Tobacco Use Types Packs/Day Years Used Date Smoking Tobacco: Never Assessed Sex and Gender Information Value Date Recorded Sex Assigned at Male 07/20/2024 11:00 AM ASSISTANT STORE DIRECTOR Legal Sex Male 10:49 PM ASSISTANT STORE DIRECTOR Gender Identity Not on file Sexual Orientation Not on file Last Filed Vital Signs Vital Sign Reading Time Taken Comments Blood Pressure 109/57 07/20/2024 11:39 AM ASSISTANT STORE DIRECTOR Pulse 83 07/20/2024 11:39 AM ASSISTANT STORE DIRECTOR Temperature 36 C (96.8 F) 07/20/2024 11:39 AM ASSISTANT STORE DIRECTOR Respiratory Rate 16 07/20/2024 11:39 AM ASSISTANT STORE DIRECTOR Oxygen Saturation 100% 07/20/2024 11:39 AM ASSISTANT STORE DIRECTOR Inhaled Oxygen Concentration - - Weight 65.8 kg (145 lb) 07/20/2024 11:39 AM ASSISTANT STORE DIRECTOR Height 165.1 cm (5' 5 ) 07/20/2024 11:39 AM ASSISTANT STORE DIRECTOR Body Mass Index 24.13 07/20/2024 11:39 AM ASSISTANT STORE DIRECTOR Plan of Treatment Health Maintenance Due Date Last Done Comments Diabetes: Retinopathy Eye Exam 08/12/1961 DTaP, Tdap and Td Vaccines (1 - Tdap) 08/12/1962 Annual Medicare Wellness Visit 08/12/2008 RSV Immunization or 60+ Years (1 - 1-dose 75+ series) 08/12/2018 COVID-19 Vaccine ( season) 2024 05/15/2021, 08/16/2020, 07/19/2020 Hemoglobin A1C 10/07/2024 04/09/2024, 05/0 08/2023, 04/10/2023, Additional history exists Kidney Health Evaluation 04/09/2025 04/09/2024 Lipid Panel 04/09/2025 04/09/2024, 05/0 08/2023, 04/10/2023, Additional history exists Pneumococcal Vaccine: 65+ Years Completed 02/29/2016, 03/30/2014 Zoster Vaccines Completed 07/07/2018, 03/10, 08/30/2014, Additional history exists Meningococcal B Vaccine Aged Out No l onger eligible based on patient's age to complete this topic Meningococcal Vaccine Aged Out No hannah drew eligible based on patient's age to complete this topic RSV Immunizations Under 20 Months Aged Out No longer eligible based on patient's age to complete this topic Procedures Procedure Name Priority Date/Time Associated Diagnosis Comments COMPREHENSIVE METABOLIC PANEL Routine 08/19/2024 4:40 PM CDT 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) CT RAD THRPY PLAN WO CON Routine 08/18/2024 12:51 PM CDT Intrahepatic bile duct carcinoma (CMS/HCC HHS/HCC) BASIC METABOLIC PANEL Routine 08/18/2024 9:10 AM CDT 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) PET EYE TO THIGH [id number] Routine 2024 11:23 AM ASSISTANT STORE DIRECTOR Intrahepatic bile duct carcinoma (CMS/HCC HHS/HCC) POCT GLUCOSE - FERNANDO DOCKED DEVICE Routine 2024 9:58 AM ASSISTANT STORE DIRECTOR COMPREHENSIVE METABOLIC PANEL Routine 07/23/2024 9:30 AM ASSISTANT STORE DIRECTOR Abnormal results of liver function studies CBC W/DIFF AUTOMATED Routine 07/23/2024 9:30 AM ASSISTANT STORE DIRECTOR Abnormal results of liver function studies BLOOD SMEAR INTERPRETATION BY Routine 07/23/2024 12:00 AM ASSISTANT STORE DIRECTOR URINE BACTERIA CULTURE Routine 12:15 PM ASSISTANT STORE DIRECTOR Abnormal results of liver function studies Hematuria, unspecified CBC W/DIFF AUTOMATED Routine 07/16/2024 12:00 PM ASSISTANT STORE DIRECTOR Abnormal results of liver function studies Hematuria, unspecified COMPREHENSIVE METABOLIC PANEL Routine 07/16/2024 12:00 PM ASSISTANT STORE DIRECTOR Abnormal results of liver function studies Hematuria, unspecified CT CHEST+ABD+PEL W CON Routine 1:18 PM ASSISTANT STORE DIRECTOR Cholangiocarcinoma (CMS/HCC HHS/HCC) CBC W/DIFF AUTOMATED Routine 07/02/2024 12:45 PM ASSISTANT STORE DIRECTOR Abnormal results of liver function studies Unspecified cirrhosis of liver (CMS/HCC HHS/HCC) COMPREHENSIVE METABOLIC PANEL Routine 07/02/2024 12:45 PM ASSISTANT STORE DIRECTOR Abnormal results of liver function studies Unspecified cirrhosis of liver (CMS/HCC HHS/HCC) CBC W/DIFF AUTOMATED Routine 06/19/2024 2:20 PM ASSISTANT STORE DIRECTOR Acute abdominal pain Cirrhosis (CMS/HCC HHS/HCC) PROTHROMBIN TIME, VENOUS Routine 06/19/2024 2:20 PM ASSISTANT STORE DIRECTOR Acute abdominal pain Cirrhosis (CMS/HCC HHS/HCC) PARTIAL THROMBOPLASTIN TIME,PTT Routine 06/19/2024 2:20 PM ASSISTANT STORE DIRECTOR Acute abdominal pain Cirrhosis (CMS/HCC HHS/HCC) COMPREHENSIVE METABOLIC PANEL Routine 06/19/2024 2:20 PM ASSISTANT STORE DIRECTOR Acute abdominal pain Cirrhosis (CMS/HCC HHS/HCC) LIPID PANEL Routine 04/09/2024 7:19 AM CDT Diabetes mellitus (CMS/HCC HHS/HCC) HTN (hypertension) Mixed hyperlipidemia Lymphocytosis (symptomatic) HEMOGLOBIN, GLYCOSYLATED Routine 04/09/2024 7:19 AM CDT Diabetes mellitus (CMS/HCC HHS/HCC) HTN (hypertension) Mixed hyperlipidemia Lymphocytosis (symptomatic) from Last 3 Months or Most Recently Relevant to Health Maintenance Results * (ABNORMAL) COMPREHENSIVE METABOLIC PANEL (08/19/2024 4:40 PM CDT) Only the most recent of5 resultswithin the time period is included. SODIUM S/P/B 136 136 - 145 MMOL/L 08/19/2024 5:49 PM CDT [facility] POTASSIUM S/P/B 4.2 3.5 - 5.1 MMOL/L 08/19/2024 5:49 PM CDT [facility] CHLORIDE S/P/B 102 98 - 107 MMOL/L 08/19/2024 5:49 PM CDT [facility] CO2 28.0 21.0 - 32.0 MMOL/L 08/19/2024 5:49 PM CDT [facility] GLUCOSE 112(H) 70 - 99 MG/DL 08/19/2024 5:49 PM CDT [facility] Comment: MILD LIPEMIA. RESULT MAY BE AFFECTED. FASTING GLUCOSE 100 TO 125 MG/DL IS CONSISTENT WITH IMPAIRED FASTING GLUCOSE. FASTING GLUCOSE >125 MG/DL IS CONSISTENT WITH DIABETES. RANDOM GLUCOSE >200 MG/DL WITH HYPERGLYCEMIC SYMPTOMS IS CONSISTENT WITH DIABETES. PER ADA GUIDELINES BUN 14 6 - 24 MG/DL 08/19/2024 5:49 PM CDT [facility] CREATININE S/P/B 0.71 0.70 - 1.30 MG/DL 08/19/2024 5:49 PM CDT [facility] CALCIUM S/P/B 8.5 8.4 - 10.5 MG/DL 08/19/2024 5:49 PM CDT [facility] BILIRUBIN TOTAL S/P/B 1.0 0.2 - 1.0 MG/DL 08/19/2024 5:49 PM CDT [facility] Comment: THIS ASSAY IS NOT RECOMMENDED FOR PATIENTS UNDERGOING TREATMENT WITH ELTROMBOPAG DUE TO THE POTENTIAL FOR FALSELY ELEVATED RESULTS. ALKALINE PHOSPHATASE S/P/B 309(H) 45 - 115 U/L 08/19/2024 5:49 PM CDT [facility] AST 36 15 - 37 U/L 08/19/2024 5:49 PM CDT [facility] ALT 56 16 - 63 U/L 08/19/2024 5:49 PM CDT [facility] TOTAL PROTEIN S/P/B 6.3(L) 6.4 - 8.2 G/DL 08/19/2024 5:49 PM CDT [facility] ALBUMIN S/P/B 2.5(L) 3.4 - 5.0 G/DL 08/19/2024 5:49 PM CDT [facility] ANION GAP 6.0 5.0 - 15.0 MMOL/L 08/19/2024 5:49 PM CDT [facility] OSMOLALITY (CALC) 283 MOSM/KG 025 5:49 PM CDT [facility] Comment:REFERENCE RANGE NOT ESTABLISHED GFR ESTIMATE >90 >89 ML/MIN/1. 73 M2 08/19/2024 5:49 PM CDT [facility] GFR NOTES GFR REFERENCE S: 08/19/2024 5:49 PM CDT [facility] Comment: THE ESTIMATED GFR IS CALCULATED USING THE 2020 CKD-EPI EQUATION. THE FOLLOWING CATEGORIES FOR GRADING RENAL FUNCTION ARE RECOMMENDED BY THE INTERNATIONAL SOCIETY OF NEPHROLOGY (KDIGO 2012 CLINICAL PRACTICE GUIDELINE). G1,NORMAL OR HIGH: >89 ml/min/1.73 m2 G2,MILDLY DECREASED: 60-89 ml/min/1.73 m2 G3A,MILDLY TO MODERATELY DECREASED: 45-59 ml/min/1.73 m2 G3B,MODERATELY TO SEVERELY DECREASED: 30-44 ml/min/1.73 m2 G4,SEVERELY DECREASED: 15-29 ml/min/1.73 m2 G5,KIDNEY FAILURE: <15 ml/min/1.73 m2 08/19/2024 4:40 PM CDT Antonietta Veronica MD LABORATORY Final Result [facility] [address] [place] [address], * CT RAD THRPY PLAN WO CON (08/18/2024 12:51 PM CDT) Anatomical Region Laterality Modality Undefined Computed Tomogra phy 08/18/2024 4:03 PM CDT Impressions 08/18/2024 4:10 PM CDT IMPRESSION: Radiation therapy planning CT scan as described. Ordered By: RAZ DOWD Interpreted By: Cj Smith MD, 08/18/2024 4:03 PM Narrative 08/18/2024 4:10 PM CDT [address] [place] [address] Examination: Radiation therapy planning CT scan. Exam time: 1255 hours. Clinical history: Cholangiocarcinoma. Comparison: Contrast-enhanced CT of the chest, abdomen and pelvis, 07/15/2024. Technique: Noncontrast spiral axial scans through the lower chest, abdomen and pelvis with fiducial markers in place. A dose lowering technique was used for this procedure, which may include, but is not limited to, dose reduction techniques, automated exposure control, the use of iterative reconstruction and ALARA/Image Gently techniques. Findings: Granulomatous scarring in the thorax and calcific coronary artery disease again evident. Within the limitations of technique, the lungs are otherwise grossly clear. There is no pleural effusion. Biliary stents remain in place in stable position. There is redemonstrated pneumobilia. 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 Within the limitations of the technique, the liver, spleen, gallbladder, pancreas, adrenals and kidneys are otherwise unremarkable. The urinary bladder is nondistended. There is no ascites, sierra lymphadenopathy or bowel distention. Colonic diverticulosis is again noted without signs of diverticulitis. No suspicious bony lesion is identified. Procedure Note Cj Smith MD - 08/18/[address] [place] [address] Examination: Radiation therapy planning CT scan. Exam time: 1255 hours. Clinical history: Cholangiocarcinoma. Comparison: Contrast-enhanced CT of the chest, abdomen and pelvis,07/15/2024. Technique: Noncontrast spiral axial scans through the lower chest, abdomenand pelvis with fiducial markers in place. A dose lowering technique wasused for this procedure, which may include, but is not limited to, dosereduction techniques, automated exposure control, the use of iterativereconstruction and ALARA/Image Gently techniques. Findings: Granulomatous scarring in the thorax and calcific coronaryartery disease again evident. Within the limitations of technique, thelungs are otherwise grossly clear. There is no pleural effusion. Biliarystents remain in place in stable position. There is redemonstratedpneumobilia. Bilateral renal malrotation and right pelvic kidney againnoted. Within the limitations of the technique, the liver, spleen,gallbladder, pancreas, adrenals and kidneys are otherwise unremarkable.The urinary bladder is nondistended. There is no ascites, franklymphadenopathy or bowel distention. Colonic diverticulosis is again notedwithout signs of diverticulitis. No suspicious bony lesion isidentified. IMPRESSION: Radiation therapy planning CT scan as described. Ordered By: RAZ DOWD Interpreted By: Cj Smith MD, 08/18/2024 4:03 PM Raz Dowd MD CT Final Result * (ABNORMAL) BASIC METABOLIC PANEL (08/18/2024 9:10 AM CDT) SODIUM S/P/B 137 136 - 145 MMOL/L 08/18/2024 10:30 AM CDT [facility] POTASSIUM S/P/B 4.2 3.5 - 5.1 MMOL/L 08/18/2024 10:30 AM CDT [facility] CHLORIDE S/P/B 102 98 - 107 MMOL/L 08/18/2024 10:30 AM CDT [facility] CO2 26.9 21.0 - 32.0 MMOL/L 08/18/2024 10:30 AM CDT [facility] GLUCOSE 143(H) 70 - 99 MG/DL 08/18/2024 10:30 AM CDT [facility] Comment: FASTING GLUCOSE 100 TO 125 MG/DL IS CONSISTENT WITH IMPAIRED FASTING GLUCOSE. FASTING GLUCOSE >125 MG/DL IS CONSISTENT WITH DIABETES. RANDOM GLUCOSE >200 MG/DL WITH HYPERGLYCEMIC SYMPTOMS IS CONSISTENT WITH DIABETES. PER ADA GUIDELINES BUN 18 6 - 24 MG/DL 08/18/2024 10:30 AM CDT [facility] CREATININE S/P/B 0.72 0.70 - 1.30 MG/DL 08/18/2024 10:30 AM CDT [facility] CALCIUM S/P/B 8.7 8.4 - 10.5 MG/DL 08/18/2024 10:30 AM CDT [facility] ANION GAP 8.1 5.0 - 15.0 MMOL/L 08/18/2024 10:30 AM CDT [facility] OSMOLALITY (CALC) 288 MOSM/KG 025 10:30 AM CDT [facility] Comment:REFERENCE RANGE NOT ESTABLISHED GFR ESTIMATE >90 >89 ML/MIN/1. 73 M2 08/18/2024 10:30 AM CDT [facility] GFR NOTES GFR REFERENCE S: 08/18/2024 10:30 AM CDT [facility] Comment: THE ESTIMATED GFR IS CALCULATED USING THE 2020 CKD-EPI EQUATION. THE FOLLOWING CATEGORIES FOR GRADING RENAL FUNCTION ARE RECOMMENDED BY THE INTERNATIONAL SOCIETY OF NEPHROLOGY (KDIGO 2012 CLINICAL PRACTICE GUIDELINE). G1,NORMAL OR HIGH: >89 ml/min/1.73 m2 G2,MILDLY DECREASED: 60-89 ml/min/1.73 m2 G3A,MILDLY TO MODERATELY DECREASED: 45-59 ml/min/1.73 m2 G3B,MODERATELY TO SEVERELY DECREASED: 30-44 ml/min/1.73 m2 G4,SEVERELY DECREASED: 15-29 ml/min/1.73 m2 G5,KIDNEY FAILURE: <15 ml/min/1.73 m2 08/18/2024 9:10 AM CDT us Antonietta Veronica MD LABORATORY Final Result [facility] [address] [place] [address], * PET EYE TO THIGH [id number] (2024 11:23 AM ASSISTANT STORE DIRECTOR) Anatomical Region Laterality Modality Body Positron Emissio n Tomography (PET), Positron Emission Tomography (PET) 2024 1:49 PM ASSISTANT STORE DIRECTOR Impressions 2024 3:34 PM ASSISTANT STORE DIRECTOR IMPRESSION: 1. Moderately hypermetabolic focal FDG uptake at the hepatic duct bifurcation corresponding with the recently biopsied adenocarcinoma at this location. 2. Multifocal uptake along the intrahepatic portions of the stents and along the distal stents in the distal common duct which are technically indeterminate but favored to be inflammatory from recent stent placement. Recent ERCP also did not report a distal common duct lesion. 3. Mild to moderately hypermetabolic periportal and portacaval lymph nodes are indeterminate. These could represent sites of early shabbir metastatic disease or may be reactive/inflammatory. 4. Intense FDG uptake associated with wall thickening along the gallbladder fundus and extending along portions of the mid gallbladder. When retrospectively reviewing previous imaging, there are subtle findings suggestive of adenomyomatosis involving the gallbladder fundus which can be hypermetabolic on PET/CT. This is the leading differential consideration for this finding on today's exam. Alternative differential considerations would include an infectious or inflammatory process involving the gallbladder. Neoplasm is felt less likely given the gallbladder appearance on recent prior imaging. 5. No FDG evidence of distant metastatic disease. The attending radiologist has reviewed the image(s) and agrees with the content of this report. Ordered By: RAZ DOWD Interpreted By: Ilya Peng MD, 2024 1:49 PM Narrative 2024 3:34 PM ASSISTANT STORE DIRECTOR [address] [address] EXAMINATION: TUMOR FDG-PET/CT IMAGING DATE OF STUDY: 2024 10:11 AM SCANNER: [facility] RADIOPHARMACEUTICAL: 11.6 mCi F-18 Fluorodeoxyglucose (FDG) i.v. Injection site: Left antecubital fossa HISTORY: Recent 1.5 cm mass in the hepatic hilum with narrowing of the biliary confluence. Status post ERCP with stenting. [place] biopsies demonstrated adenocarcinoma. The study is requested for initial staging. Initial treatment strategy. TECHNIQUE: The patient's fasting blood glucose level, measured by glucometer before injection of FDG, was 110 mg/dL. MD-Gastroview was not given orally. After intravenous administration of FDG, noncontrast CT images were obtained for attenuation correction and for fusion with emission PET images to allow for anatomical localization of PET findings. Emission PET images were then obtained. The study was interpreted on the [employer] workstation. The mean liver SUV (reported for supervisor vendor quality purposes) is 2.7. The total scanned area was base of the skull to the proximal thighs. Images of the body were obtained starting 50 minutes after injection of tracer. COMPARISON: CT chest abdomen and pelvis 07/15/2024 and MRCP 04/22/2024 FINDINGS: At the hepatic hilum at the bifurcation of the hepatic ducts and location of previous enhancing mass there is focal FDG uptake with max SUV of 6.0. This corresponds with the recently biopsy-proven adenocarcinoma at this location. There are [address] traversing this location, one originating in the left hepatic duct and the other in the right with their distal tips terminating in the duodenum. There is focal FDG uptake distally along the stents at the level of a distal common duct/duodenum with max SUV 6.3. Additional more focal area of increased FDG uptake along the proximal left hepatic duct stent within the liver has max SUV 5.0. Mild to moderately hypermetabolic periportal and portacaval lymph nodes with max SUV 4.6 corresponding with a portacaval lymph node measuring approximately 2.3 x 1.5 cm. At the gallbladder fundus there is focal gallbladder wall thickening with marked FDG uptake with maximal SUV of 10.7. There are few other focal areas of increased radiotracer uptake along the gallbladder wall as well. When corresponded with previous imaging, there appeared to be a curvilinear cystic T2 hyperintensity is at the gallbladder fundus on recent MRI suggestive of adenomyomatosis. This can be focally hypermetabolic on PET/CT. When compared to prior CT exams, the wall thickening on the current study appears more prominent however, there is no significant pericholecystic inflammatory change on today's exam. Relatively intense FDG uptake diffusely throughout the bowel is favored to be physiologic. Mild symmetric FDG uptake associated with hilar and mediastinal lymph nodes, many of which have associated calcification is likely reactive and granulomatous in nature. No markedly hypermetabolic lymphadenopathy in the chest. 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 Additional CT findings: Calcified pulmonary granulomas and mediastinal and hilar lymph nodes are evidence for old healed granulomatous disease. Mild dependent atelectasis. Atherosclerotic calcification of the carotid arteries. Streak artifact from dental restorations. Atherosclerotic calcification of the thoracoabdominal aorta with tortuosity There are coronary artery calcifications. There are biliary stents within the liver with associated pneumobilia and intrahepatic bile duct dilatation, similar to recent prior exams. There is malrotation of the left kidney which is otherwise normal in morphology. 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 Colonic diverticulosis is present. Prostatomegaly with calcification. There is multilevel degenerative disc disease and spondylosis of the spine with bridging anterior osteophytes and calcification of the anterior longitudinal ligament displacing the setting of diffuse idiopathic skeletal hyperostosis. Degenerative anterolisthesis of C4 on C5 and C7 on T1. There are degenerative changes of the hips. Procedure Note Evy Larson MD - [address] [address] EXAMINATION: TUMOR FDG-PET/CT IMAGING DATE OF STUDY: 2024 10:11 AM SCANNER: [facility] RADIOPHARMACEUTICAL: 11.6 mCi F-18 Fluorodeoxyglucose (FDG) i.v.Injection site: Left antecubital fossa HISTORY: Recent 1.5 cm mass in the hepatic hilum with narrowing of thebiliary confluence. Status post ERCP with stenting. [place] biopsiesdemonstrated adenocarcinoma. The study is requested for initial staging. Initial treatment strategy. TECHNIQUE: The patient's fasting blood glucose level, measured byglucometer before injection of FDG, was 110 mg/dL. MDJuvenalGastroview was notgiven orally. After intravenous administration of FDG, noncontrast CTimages were obtained for attenuation correction and for fusion withemission PET images to allow for anatomical localization of PET findings.Emission PET images were then obtained. The [facility]. The mean liver SUV (reported for quality controlpurposes) is 2.7. The total scanned area was base of the skull to the proximal thighs.Images of the body were obtained starting 50 minutes after injection oftracer. COMPARISON: CT chest abdomen and pelvis 07/15/2024 and MRCP 04/22/2024 FINDINGS: At the hepatic hilum at the bifurcation of the hepatic ducts and locationof previous enhancing mass there is focal FDG uptake with max SUV of 6.0.This corresponds with the recently biopsy-proven adenocarcinoma at thislocation. There are [address] traversing this location,one originating in the left hepatic duct and the other in the right withtheir distal tips terminating in the duodenum. There is focal FDG uptakedistally along the stents at the level of a distal common duct/duodenumwith max SUV 6.3. Additional more focal area of increased FDG uptake alongthe proximal left hepatic duct stent within the liver has max SUV 5.0. Mild to moderately hypermetabolic periportal and portacaval lymph nodeswith max SUV 4.6 corresponding with a portacaval lymph node measuringapproximately 2.3 x 1.5 cm. At the gallbladder fundus there is focal gallbladder wall thickening withmarked FDG uptake with maximal SUV of 10.7. There are few other focalareas of increased radiotracer uptake along the gallbladder wall as well.When corresponded with previous imaging, there appeared to be acurvilinear cystic T2 hyperintensity is at the gallbladder fundus onrecent MRI suggestive of adenomyomatosis. This can be focallyhypermetabolic on PET/CT. When compared to prior CT exams, the wallthickening on the current study appears more prominent however, there isno significant pericholecystic inflammatory change on today's exam. Relatively intense FDG uptake diffusely throughout the bowel is favored shannon physiologic. Mild symmetric FDG uptake associated with hilar and mediastinal lymphnodes, many of which have associated calcification is likely reactive andgranulomatous in nature. No markedly hypermetabolic lymphadenopathy in thechest. 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 Additional CT findings: Calcified pulmonary granulomas and mediastinal andhilar lymph nodes are evidence for old healed granulomatous disease. Milddependent atelectasis. Atherosclerotic calcification of the carotidarteries. Streak artifact from dental restorations. Atheroscleroticcalcification of the thoracoabdominal aorta with tortuosity There arecoronary artery calcifications. There are biliary stents within the liverwith associated pneumobilia and intrahepatic bile duct dilatation, similarto recent prior exams. There is malrotation of the left kidney which isotherwise normal in morphology. 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 Prostatomegaly with calcification.There is multilevel degenerative disc disease and spondylosis of the spinewith bridging anterior osteophytes and calcification of the anteriorlongitudinal ligament displacing the setting of diffuse idiopathicskeletal hyperostosis. Degenerative anterolisthesis of C4 on C5 and C7 onT1. There are degenerative changes of the hips. IMPRESSION: 1. Moderately hypermetabolic focal FDG uptake at the hepatic ductbifurcation corresponding with the recently biopsied adenocarcinoma atthis location. 2. Multifocal uptake along the intrahepatic portions of the stents andalong the distal stents in the distal common duct which are technicallyindeterminate but favored to be inflammatory from recent stent placement.Recent ERCP also did not report a distal common duct lesion. 3. Mild to moderately hypermetabolic periportal and portacaval lymph nodesare indeterminate. These could represent sites of early shabbir metastaticdisease or may be reactive/inflammatory. 4. Intense FDG uptake associated with wall thickening along thegallbladder fundus and extending along portions of the mid gallbladder.When retrospectively reviewing previous imaging, there are subtle findingssuggestive of adenomyomatosis involving the gallbladder fundus which canbe hypermetabolic on PET/CT. This is the leading differentialconsideration for this finding on today's exam. Alternative differentialconsiderations would include an infectious or inflammatory processinvolving the gallbladder. Neoplasm is felt less likely given thegallbladder appearance on recent prior imaging. 5. No FDG evidence of distant metastatic disease. The attending radiologist has reviewed the image(s) and agrees with thecontent of this report. Ordered By: RAZ DOWD Interpreted By: Ilya Peng MD, 2024 1:49 PM Raz Dowd MD PET Final Result * (ABNORMAL) POCT glucose (2024 9:58 AM ASSISTANT STORE DIRECTOR) GLUCOSE POC 110(H) 70 - 109 2024 10:00 AM ASSISTANT STORE DIRECTOR [facility] 2024 9:58 AM ASSISTANT STORE DIRECTOR Raz Dowd MD POCT ORDERABLES - DEVICE Final Result [facility] [address] [place] [address], [place] [phone] [id number] * (ABNORMAL) CBC W/DIFF AUTOMATED (07/23/2024 9:30 AM ASSISTANT STORE DIRECTOR) Only the most recent of4 resultswithin the time period is included. WBC 14.67(H) 4.00 - 10.80 x10'3/uL 07/23/2024 10:23 AM [facility] RBC 3.22(L) 4.50 - 6.10 x10'6/uL 07/23/2024 10:23 AM [facility] HGB 10.8(L) 13.0 - 18.0 G/DL 07/23/2024 10:23 AM [facility] HCT 31.5(L) 37.0 - 52.0 % 07/23/2024 10:23 AM [facility] MCV 97.8 78.0 - 100.0 FL 07/23/2024 10:23 AM [facility] MCH 33.5(H) 27.0 - 31.0 PG 07/23/2024 10:23 AM [facility] MCHC 34.3 33.0 - 36.0 G/DL 07/23/2024 10:23 AM [facility] RDW 14.8(H) 11.5 - 14.5 % 07/23/2024 10:23 AM [facility] PLT 162 150 - 350 x10'3/uL 07/23/2024 10:23 AM [facility] MPV 9.9 7.4 - 10.4 FL 07/23/2024 10:23 AM [facility] CBC COMMENT NORMAL REFERENCE RANGE NOT ESTABLISHED FOR THE PROPORTIONAL LEUKOCYTE DIFFERENTIAL. 07/23/2024 10:23 AM [facility] SEG NEUTROPHILS 36 % 10:36 AM [facility] LYMPHOCYTES 52 % 07/23/2024 10:36 AM [facility] MONOCYTES 8 % 07/23/2024 10:36 AM [facility] EOSINOPHILS 4 % 07/23/2024 10:36 AM ASSISTANT STORE DIRECTOR [facility] ABS SEGMENTED NEUTS 5.28 1.60 - 8.30 x10'3/uL 07/23/2024 10:36 AM ASSISTANT STORE DIRECTOR [facility] ABS. LYMPHOCYTES 7.63(H) 0.80 - 4.70 x10'3/uL 07/23/2024 10:36 AM [facility] ABS. MONOCYTES 1.17 0.10 - 1.50 x10'3/uL 07/23/2024 10:36 AM [facility] ABS. EOSINOPHILS 0.59(H) 0.00 - 0.40 x10'3/uL 07/23/2024 10:36 AM [facility] PLT MORPH. NORMAL 07/23/2024 10:36 AM [facility] RBC MORPHOLOGY 1+ 07/23/2024 10:36 AM [facility] Comment: ANISOCYTOSIS 1+ POIKILOCYTOSIS 1+ MACROCYTES WBC MORPHOLOGY MANY ATYPICAL LYMPHS 07/23/2024 10:36 AM [facility] 07/23/2024 9:30 AM ASSISTANT STORE DIRECTOR us Antoinetta Veronica MD LABORATORY Final Result [facility] [place] [address], * BLOOD SMEAR INTERPRETATION BY (07/23/2024 12:00 AM ASSISTANT STORE DIRECTOR) PATHOLOGY [facility] Department of Laboratory Medicine [address] [place] [address] , extension [phone] Pathology Report Peripheral Smear Report Name: SOFIA BATES Specimen #: [id number] Age: 3 1945 (Age: 78) Location: Sex: M Procedure Date: 07/23/2024 [facility] #: [id number] Date Received: 07/26/2024 Date Reported: 07/26/2024 Provider: ANTONIETTA VERONICA MD Source: Peripheral blood Clinical History: Lymphocytosis FINAL DIAGNOSIS: Peripheral blood, smear review: -Mild leukocytosis with mild absolute lymphocytosis, mild absolute eosinophilia, and mildly increased large granular lymphocytes, see comment. -Mild normocytic anemia. Diagnosis Comment: The findings are nonspecific and may be reactive in nature. The possibility of an evolving lymphoproliferative disorder including possible large granular lymphocytic leukemia cannot be entirely excluded. Flow cytometric analysis of the peripheral blood may be warranted if clinically indicated. Electronically Signed Out CARMEL JACK MD INTERPRETATION: Peripheral Blood Comments: CBC data and smear review (200 cells): WBC: 14.67 x K/uL; Hgb: 10.8 g/dL; Hct: 31.5%; MCV: 97.8 fl; MCHC: 34.3 g/dl; RDW: 14.8%; Plt: 162 K/uL Pathologist manual differential: neutrophils 33%, lymphocytes 56%, monocytes 5%, eosinophils 5%, basophils 1% Blood smear findings: There is mild leukocytosis with mild absolute lymphocytosis and mild absolute eosinophilia. The lymphocytes are morphologically heterogeneous with mildly increased large granular lymphocytes noted. There is mild normocytic anemia with mild anisocytosis. The platelet count is adequate and the platelet morphology is unremarkable. Gross examination (when applicable), interpretation, and sign out were performed at [facility], [address] [place] [address]. [facility] 07/23/2024 07/26/2024 1:5 1 PM ASSISTANT STORE DIRECTOR Comment:Peripheral blood Antonietta Veronica MD LABORATORY Final Result [facility] [address] [place] [address], [id number] * URINE BACTERIA CULTURE (07/16/2024 12:15 PM ASSISTANT STORE DIRECTOR) SPEC DESCRIPTION URINE CLEAN CATCH 07/16/2024 12:40 PM ASSISTANT STORE DIRECTOR [facility] SPECIAL REQUESTS NO SPECIAL REQUEST 07/16/2024 12:40 PM ASSISTANT STORE DIRECTOR [facility] CULTURE RESULT NO GROWTH (< OR = 1,000 CFU/ML) 07/18/2024 10:47 AM ASSISTANT STORE DIRECTOR [facility] URINE SPECIMEN OBTAINED BY CLEAN CATCH PROCEDURE / Unknown 07/16/2024 12:15 PM ASSISTANT STORE DIRECTOR 07/16/2024 12:35 PM ASSISTANT STORE DIRECTOR Antonietta Veronica MD MICROBIOLOGY - GENERAL ORDERA BLES Final Result [facility] [address] [place] [address], [place] [phone] [facility] [address] [place] [address], * CT CHEST+ABD+PEL W CON (07/15/2024 1:18 PM ASSISTANT STORE DIRECTOR) Anatomical Region Laterality Modality Chest, Abdomen, Pelvis Computed Tomography 07/16/2024 3:30 PM ASSISTANT STORE DIRECTOR Impressions 07/16/2024 3:53 PM ASSISTANT STORE DIRECTOR IMPRESSION: 1. Objectively nonspecific subcarinal adenopathy. Within the limitations of the exam, no other findings to suggest potential metastatic disease. 2. Improved biliary distention, status post stent placement. 3. Coronary artery disease. 4. Centrilobular emphysema. 5. Colonic diverticulosis. 6. Additional chronic/nonurgent findings as described. Ordered By: ANTONIETTA VERONICA Interpreted By: Cj Smith MD, 07/16/2024 3:30 PM Narrative 07/16/2024 3:53 PM ASSISTANT STORE DIRECTOR [address] [place] [address] Examination: CT of the chest, abdomen and pelvis with contrast. Exam time: 1305 hours. Clinical history: History of painless jaundice due to biliary stricture suspected to be cholangiocarcinoma. Status post ERCP with stent placement and brushings. Confirmation of cancer diagnosis is not currently available in the electronic record. Staging of presumptive malignancy. Comparison: Contrast-enhanced CT of the abdomen, 05/31/2024 ([facility] [place]), contrast enhanced CT of the chest, abdomen and pelvis, 04/29/2022 (this institution). Technique: Following the administration of intravenous contrast, spiral scanning was performed through the chest, abdomen and pelvis. Sagittal and coronal reconstructions were performed from the data set. A dose lowering technique was used for this procedure, which may include, but is not limited to, dose reduction techniques, automated exposure control, the use of iterative reconstruction and ALARA/Image Gently techniques. Findings: There is image degradation due to respiratory motion and beam hardening artifact from patient arm position. CT CHEST: Calcific coronary artery disease and atherosclerotic calcification of the aorta and arch vessels again evident. The heart and great vessels are otherwise unremarkable. Calcified mediastinal and right hilar lymph nodes are again evident, compatible with old granulomatous disease. There is new mild subcarinal adenopathy objectively nonspecific in the current clinical context. No hilar or other mediastinal adenopathy is identified. No endobronchial abnormality is identified. Changes of centrilobular emphysema and calcified pulmonary granulomas again evident. Allowing for the respiratory motion, the lungs are otherwise grossly clear. There is no pleural effusion. The chest wall structures are unchanged. No suspicious bony lesion is identified. CT ABDOMEN AND PELVIS: Biliary stents are now in place in the left and right hepatic ducts extending into the duodenum. Pneumobilia, consistent with their presence, is now apparent. Biliary distention has improved since 05/31/2024. Mass in the hepatic hilus described on 05/31/2024 is not clearly redemonstrated. Within the limitations of the exam, the liver, spleen, gallbladder, pancreas and adrenal glands are otherwise unremarkable. 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 The kidneys are otherwise unremarkable. The urinary bladder is nearly empty. The prostate remains enlarged but shows no dominant focal abnormality. A normal- appearing appendix is visible. Colonic diverticulosis is again evident without signs of diverticulitis. There is no ascites, lymphadenopathy or bowel distention. The caliber of the abdominal aorta is normal. Mild chronic compression deformities of T12 and L1 are noted on sagittal reconstruction. No suspicious bony lesion is identified. Procedure Note Cj Smith MD - 07/16/2024 [place] [id number] [facility] [place] [address] Examination: CT of the chest, abdomen and pelvis with contrast. Exam time: 1305 hours. Clinical history: History of painless jaundice due to biliary stricturesuspected to be cholangiocarcinoma. Status post ERCP with stent placementand brushings. Confirmation of cancer diagnosis is not currently availablein the electronic record. Staging of presumptive malignancy. Comparison: Contrast-enhanced CT of the abdomen, 05/31/2024 ([facility]), contrast enhanced CT of thechest, abdomen and pelvis, 04/29/2022 (this institution). Technique: Following the administration of intravenous contrast, spiralscanning was performed through the chest, abdomen and pelvis. Sagittal andcoronal reconstructions were performed from the data set. A dose loweringtechnique was used for this procedure, which may include, but is notlimited to, dose reduction techniques, automated exposure control, the useof iterative reconstruction and ALARA/Image Gently techniques. Findings: There is image degradation due to respiratory motion and beamhardening artifact from patient arm position. CT CHEST: Calcific coronary artery disease and atheroscleroticcalcification of the aorta and arch vessels again evident. The heart andgreat vessels are otherwise unremarkable. Calcified mediastinal and righthilar lymph nodes are again evident, compatible with old granulomatousdisease. There is new mild subcarinal adenopathy objectively nonspecificin the current clinical context. No hilar or other mediastinal adenopathyis identified. No endobronchial abnormality is identified. Changes ofcentrilobular emphysema and calcified pulmonary granulomas again evident.Allowing for the respiratory motion, the lungs are otherwise grosslyclear. There is no pleural effusion. The chest wall structures areunchanged. No suspicious bony lesion is identified. CT ABDOMEN AND PELVIS: Biliary stents are now in place in the left andright hepatic ducts extending into the duodenum. Pneumobilia, consistentwith their presence, is now apparent. Biliary distention has improvedsince 05/31/2024. Mass in the hepatic hilus described on 05/31/2024 is notclearly redemonstrated. Within the limitations of the exam, the liver,spleen, gallbladder, pancreas and adrenal glands are otherwiseunremarkable. 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 The urinary bladder is nearlyempty. The prostate remains enlarged but shows no dominant focalabnormality. A normal-appearing appendix is visible. Colonicdiverticulosis is again evident without signs of diverticulitis. There isno ascites, lymphadenopathy or bowel distention. The caliber of theabdominal aorta is normal. Mild chronic compression deformities of T12 andL1 are noted on sagittal reconstruction. No suspicious bony lesion isidentified. IMPRESSION: 1. Objectively nonspecific subcarinal adenopathy. Within the limitationsof the exam, no other findings to suggest potential metastatic disease. 2. Improved biliary distention, status post stent placement. 3. Coronary artery disease. 4. Centrilobular emphysema. 5. Colonic diverticulosis. 6. Additional chronic/nonurgent findings as described. Ordered By: ANTONIETTA VERONICA Interpreted By: jC Smith MD, 07/16/2024 3:30 PM Antonietta Veronica MD CT Final Result * (ABNORMAL) PARTIAL THROMBOPLASTIN TIME,PTT (06/19/2024 2:20 PM ASSISTANT STORE DIRECTOR) PTT 40.9(H) 25.1 - 36.5 SEC 06/19/2024 3:23 PM ASSISTANT STORE DIRECTOR [facility] Comment: THERAPEUTIC RANGE: 46.2-77.0 SEC SPECIMEN ICTERIC, RESULTS MAY BE AFFECTED 06/19/2024 2:20 PM ASSISTANT STORE DIRECTOR Antonietta Veronica MD LABORATORY Final Result [facility] [place] [address], * (ABNORMAL) PROTIME/INR, VENOUS (06/19/2024 2:20 PM ASSISTANT STORE DIRECTOR) PROTIME 23.7(H) 9.4 - 12.5 SEC 06/19/2024 3:23 PM ASSISTANT STORE DIRECTOR [facility] Comment:SPECIMEN ICTERIC, RE SULTS MAY BE AFFECTED INR 2.1(H) 0.8 - 1.0 06/19/2024 3:23 PM ASSISTANT STORE DIRECTOR [facility] Comment:SPECIMEN ICTERIC, RE SULTS MAY BE AFFECTED 06/19/2024 2:20 PM ASSISTANT STORE DIRECTOR us Antonietta Veronica MD LABORATORY Final Result [facility] [address] [place] [address], [place] [phone] * (ABNORMAL) HEMOGLOBIN, GLYCOSYLATED (04/09/2024 7:19 AM CDT) HGB A1C 6.3(H) <5.7 % 04/09/2024 1:59 PM CDT [facility] ESTIMATED AVG GLUCOSE 134(H) 74 - 114 MG/DL 04/09/2024 1:59 PM CDT [facility] 04/09/2024 7:19 AM CDT us Antonietta Veronica MD LABORATORY Final Result Performing Organization Address City/[facility] Co de Phone Number [facility] [address] [place] [address], [place] [phone] * LIPID PANEL (04/09/2024 7:19 AM CDT) CHOLESTEROL 176 MG/DL 04/09/2024 1:31 PM CDT [facility] Comment:DESIRABLE: <200 TRIGLYCERIDES 176 MG/DL 04/09/2024 1:31 PM CDT [facility] Comment:150-199 BORDERLINE H IGH HDL 62 >39 MG/DL 04/09/2024 1:31 PM CDT [facility] LDL-C 79 MG/DL 04/09/2024 1:31 PM CDT [facility] Comment:<100 OPTIMAL VLDL CALCULATION 35 MG/DL 04/09/20 1:31 PM CDT [facility] Comment:REFERENCE RANGE NOT ESTABLISHED CHOL/HDL RATIO 2.8 04/09/2024 1:31 PM CDT [facility] Comment:REFERENCE RANGE NOT ESTABLISHED LDL/HDL 1.3 04/09/2024 1:31 PM CDT [facility] Comment:REFERENCE RANGE NOT ESTABLISHED NON HDL CHOLESTEROL 114 MG/DL 04/09/2024 1:31 PM CDT [facility] Comment:REFERENCE RANGE NOT ESTABLISHED 04/09/2024 7:19 AM CDT Antonietta Veronica MD LABORATORY Final Result [facility] [address] [place] [address], [place] [phone] [id number] from Last 3 Months or Most Recently Relevant to Health Maintenance Insurance MEDICARE [facility] Care Teams Traffic Assistant Relationship Specialty Start Date End Date Antonietta Veronica MD [address] [place] [address] PCP - General INTERNAL MEDICINE 04/19/22
--- OUTSIDE RECORDS SUMMARY | 2024-09-17 12:44 | XMS_ITS | Encounter Summary ---
Author Organization [facility] Address [facility] [place] [address] Care Team Providers Care Perforator Name Role Phone Flo Torres MD Primary Care Provider [phone] Reason for Visit * Reason Onset Date Comments Procedure 09/16/2024 3mo follow up ER CP for stent revision with Dr Ontiveros Encounter Details Date Type Department Care Team (Late st Contact Info) Description 09/16/2024 Telephone [facility] - [address] [address] Michael Haney, die technician (3mo follow up ERCP for stent revision with Dr Ontiveros) Social History Tobacco Use Types Packs/Day Years [...] encounter Miscellaneous Notes * Telephone Encounter - Michael Haney, KAVEH - 09/17/2024 11:48 AM CDT 2nd attempt to contact patient to schedule follow up ERCP. No answer x 2. Again, no VM available toleave message. No Mychart. * Telephone Encounter - Michael Haney RN - 09/16/2024 2:15 PM CDT Message received from patient that he is ready to schedule ERCP. Attempted to contact patient x 2. No answer. No VM available to leave message. Will follow up againwith patient. No Mychart. * Telephone Encounter - Michael Haney RN - 09/16/2024 11:20 AM CDT Message received that patient previously requested to cancel 3 mo follow up ERCP scheduled on 09.21.24. Supposedly patient unaware of scheduled follow up procedure and had been told that no stent removal needed. I called and spoke with the patient at length about his last procedure and reasons for follow up ERCP. Advised him that his previously scheduled this procedure while he was in the hospital 3 months ago. Patient verbalized understanding of the need for follow up ERCP to exchange / remove biliary stent. However, he insists on speaking with his PCP about the follow up ERCP first before scheduling anything. He is supposedly meeting with PCP tomorrow and said he will contact me later for scheduling. Previous ERCP procedure report faxed to PCP Dr. Flo Torres as requested by patient. documented in this encounter Plan of Treatment Not on file documented as of this encounter Visit Diagnoses Not on filedocumented in this encounter Care Teams Perforator Relationship Specialty Start Date End Date Flo Torres MD [address] [place] [address] PCP - General 02/05/21 documented as of this encounter
--- OUTSIDE RECORDS SUMMARY | 2024-09-17 12:44 | XMS_ITS | Encounter Summary ---
Author Organization [facility] Address [address] [place] [address] Care Team Providers Care Flue Gas Analyst Name Role Phone Flo Torres MD Primary Care Provider [phone] Encounter Details Date Type Department Care Team (Late st Contact Info) Description 05/27/2024 Lab Requisition [facility] - Pathology Lab [address] [place] [address] Rivera Reilly MD [address] [address] Illness, unspecified Social History Tobacco Use Types Packs/Day Years Used Date Smoking Tobacco: Never Assessed Sex and Gender Information Value Date Recorded Sex Assigned at Not on file Gender Identity Not on file Sexual Orientation Not on file documented as of this encounter Plan of Treatment Not on file documented as of this encounter Procedures Procedure Name Priority Date/Time Associated Diagnosis Comments PATHOLOGY TISSUE Routine 05/25/2024 9:00 AM EMAIL MANAGER Illness, unspecified documented in this encounter Results * PATHOLOGY TISSUE (05/25/2024 9:00 AM EMAIL MANAGER) Case Report Surgical Pathology Report Case: [id number] Authorizing Provider: Rivera Reilly MD Collected: 05/25/2024 09:00 AM Ordering Location: [facility] - Received: 05/27/2024 04:08 PM Pathology Lab Pathologist: Lisbeth Yarbrough MD Specimen: Liver 05/28/2024 3:02 PM EMAIL MANAGER [facility] Final Diagnosis Liver, biopsy (A): - Marked acute cholestasis (see comment) - No florid duct lesion, granulomas, or features of chronic cholestasis 05/28/2024 3:02 PM EMAIL MANAGER [facility] Microscopic Description and Comment The biopsy is 3 cores of liver notable for marked acute cholestasis, seen as extensive bile plugs and distended canaliculi filled with bile. Additionally, there is intrahepatocellular bile and hepatocyte dropout associated with such marked acute cholestasis. Portal tracts are expanded by edema and ductular reaction with neutrophils. There is also a mild portal chronic inflammatory infiltrate, but no overrepresentation of plasma cells or a plasma cell-rich interface hepatitis. The liver architecture is distorted by portal expansion due to edema and ductular reaction, and hepatocyte dropout due to cholestasis, but there is no established collagenous fibrotic remodeling (i.e. no bridging fibrosis or cirrhosis). Within residual portal areas, the interlobular bile duct branches are present and have reactive changes, but there is no granulomatous bile duct injury (no florid duct lesions), no granulomas at all, and no lymphocytic bile duct injury. There is also no periductal sclerosis or bile duct scarring. A CK7 immunostain (block A1, with appropriately staining controls) shows extensive ductular reaction, and no ductopenia. The trichrome stain (including repeat stain at [facility]) shows areas of portal expansion and hepatocyte dropout, although collagenous fibrosis is relatively limited to portal tracts (i.e. no bridging fibrosis or even well-established periportal fibrosis). The reticulin stain highlights areas of collapse due to hepatocyte dropout and periportal expansion. The PAS stain highlights hepatocellular glycogen. The PAS-D stain is negative for alpha-1 antitrypsin globules, and highlights increased Kupffer cells in areas of hepatocyte loss. The iron stain shows reticuloendothelial iron and focal 1+ hepatocellular iron. A copper special stain shows no copper in any of the periportal hepatocytes across the entire biopsy. The findings are compatible with marked acute cholestasis--showing development of extensive ductular reaction and hepatocyte dropout indicating sustained injury over a subacute time period. The lack of fibrosis or copper accumulation argues against chronic cholestatic liver disease as would be expected in chronic small bile duct disease such as primary biliary cholangitis or small duct primary sclerosing cholangitis. There are no florid duct lesions or any granulomas, further arguing against primary biliary cholangitis in this AMA-negative male patient. Despite the clinical findings of a negative MRCP, the portal edema and marked acute cholestasis with ductular reaction are most compatible with biliary obstruction histologically. 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 05/28/2024 3:02 PM [facility] Materials Received Received are 13 slide(s) 1 block(s) labeled [id number] along with a copy of the outside pathology report[place] [address]. All original materials are returned to the referring institution, along with a copy of our final report. 05/28/2024 3:02 PM [facility] Pathologist Location at [facility] 05/28/2024 3:02 PM [facility] Disclaimer The performance characteristics of all immunohistochemical and indirect immunofluorescence stains (if any) cited in this report were determined by the Histopathology Laboratory of [facility]. Some of these tests were developed by [...] and interpreted by the attending (teaching) pathologist. 05/28/2024 3:02 PM [facility] Embedded Images 05/28/2024 3:02 PM [facility] Pathology/Cytolo gy ENTIRE LIVER / Unknown 05/25/2024 9:00 AM EMAIL MANAGER 05/27/2024 4:08 PM EMAIL MANAGER Rivera Reilly MD LAB - PATHOLOGY/CYTO LOGY ORDERABLES [facility] [address] [phone] documented in this encounter Visit Diagnoses Diagnosis Illness, unspecified documented in this encounter Additional Health Concerns Infection Onset Date Last Indicated Resolved Time COVID-19 Under Investigation 06/19/2024 06/19/2024 06/19/2024 7:16 PM EMAIL MANAGER COVID-19 Under Investigation 06/20/2024 06/20/2024 06/20/2024 9:00 AM EMAIL MANAGER documented as of this encounter Care Teams Flue Gas Analyst Relationship Specialty Start Date End Date Flo Torres MD [address] [place] [id number] PCP - General 02/05/21 documented as of this encounter
[2024-09-17 13:03] LABS: Hematocrit 43.2 % (37.0-46.0); Hemoglobin 14.5 g/dL (12.4-15.3); Immature Platelet Fraction Pct 2.2 % (1.0-7.0); Mean Corpuscular HGB Conc 33.6 g/dL (32-36); Mean Corpuscular Hemoglobin 31.6 pg (27.0-31.0); Mean Corpuscular Volume 94.1 fL (78.0-102.0); Mean Platelet Volume 9.8 fl (8.7-11.0); Platelet Count Result 111 K/mm3 (150-420); Red Blood Count 4.59 M/mm3 (4.70-6.10); Red Cell Distribution Width 12.3 % (11.6-14.4); White Blood Count 7.9 K/mm3 (4.8-10.8)
[2024-09-17 13:19] LABS: Appearance Urine Clear (Clear); Bilirubin Urine 1+ (Negative); Blood Urine Negative (Negative); Glucose Urine UA Negative (Negative); Ketones Urine Negative (Negative); Leukocyte Esterase Ur Negative (Negative); Nitrate Urine Negative (Negative); Protein Urine Negative (Negative); pH Urine 5.5 (5.0-8.0)
[2024-09-17 13:25] LABS: Hemoglobin A1C 5.5 % (<5.7)
[2024-09-17 13:32] LABS: Add Urine Microscopic? YES; Color Urine Dark Amber (Yellow); RBC Urine None seen /hpf (0-2); Squamous Epithelial Cell Urine Rare /hpf (Few); WBC Urine None seen /hpf (0-3)
[2024-09-17 13:33] LABS: Bacteria Urine Trace /hpf
[2024-09-17 14:03] LABS: Alanine Aminotransferase 111 U/L (16-63); Alkaline Phosphatase 365 U/L (46-116); Anion Gap 6 mmol/L (4-12); Aspartate Amino Transferase 109 U/L (15-37); Bilirubin,Total 3.6 mg/dL (0.00-1.00); Blood Urea Nitrogen 19 mg/dL (7-18); Calcium 9.2 mg/dL (8.5-10.1); Carbon Dioxide 30 mmol/L (21-32); Chloride 99 mmol/L (98-108); Estimated Glomerular Filt Rate > 60; Free T4 Free Thyroxine 1.11 ng/dL (0.76-1.46); Glucose 149 mg/dL (70-99); Iron 46 ug/dL (65-175); Lactate Dehydrogenase 118 U/L (85-227); Osmolality Calculated 285 mOsm/kg (285-295); Potassium 4.5 mmol/L (3.5-5.1); Sodium 135 mmol/L (136-145); Thyroid Stimulating Hormone 0.73 uIU/mL (0.36-3.74); Total Protein 7.2 g/dL (6.4-8.2)
[2024-09-17 14:09] LABS: Ferritin > 1000 ng/mL (26-388); GGT > 690.0 U/L (15-85); Vitamin B12 > 2000 pg/mL (193-986)
[2024-09-17 14:32] LABS: Free T3 1.85 pg/mL (2.18-3.98)
== END 2024-09-17 12:39 | disposition home or self-care (01) ==
LOC: CHSLAB 12:40
PROVIDERS: PCP Internal Medicine; Visit Provider Internal Medicine
DX: D72.820 Lymphocytosis (symptomatic) (principal); R74.8 Abnormal levels of other serum enzymes; D49.0 Neoplasm of unspecified behavior of digestive system; E11.9 Type 2 diabetes mellitus without complications; E53.8 Deficiency of other specified B group vitamins; D64.9 Anemia, unspecified
CPT/HCPCS: 36415; 80053; 81001; 82607; 82728; 82977; 83036; 83540; 83615; 84439; 84443; 84481; 85027; 85055

== ENCOUNTER 2024-10-11 15:01 | Outpatient (CLI) | payer MEDICARE, SELFPAY ==
[2024-10-11 15:28] LABS: Hematocrit 36.6 % (37.0-46.0); Hemoglobin 12.1 g/dL (12.4-15.3); Mean Corpuscular HGB Conc 33.1 g/dL (32-36); Mean Corpuscular Hemoglobin 32.1 pg (27.0-31.0); Mean Corpuscular Volume 97.1 fL (78.0-102.0); Mean Platelet Volume 9.8 fl (8.7-11.0); Platelet Count Result 190 K/mm3 (150-420); Red Blood Count 3.77 M/mm3 (4.70-6.10); Red Cell Distribution Width 12.9 % (11.6-14.4); White Blood Count 10.9 K/mm3 (4.8-10.8)
[2024-10-11 15:29] LABS: Add Urine Microscopic? NO; Appearance Urine Clear (Clear); Bilirubin Urine Negative (Negative); Blood Urine Negative (Negative); Color Urine Light Yellow (Yellow); Glucose Urine UA Negative (Negative); Ketones Urine Negative (Negative); Leukocyte Esterase Ur Negative (Negative); Nitrate Urine Negative (Negative); Protein Urine Negative (Negative); pH Urine 7.5 (5.0-8.0)
--- OUTSIDE RECORDS SUMMARY | 2024-10-11 15:40 | XMS_ITS | Clinical Summary ---
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 Active esomeprazole (NEXIUM) 40 MG capsule Take 1 capsule (40 mg total) by mouth. 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 Encounters Date Type Department Care Team Description 10/11/2024 Telephone [id number] [place] [address] Rachael Rocha MD Information 10/07/2024 1:16 PM CDT - 10/07/2024 11:59 PM CDT Hospital Encounter [facility] [address] [place] [address] Antonietta Veronica MD Discharge Disposition: Home or Self Care (Routine Discharge) 10/07/2024 Travel 09/28/2024 1:40 PM CDT Office Visit [id number] [place] [address] Rachael Rocha MD Follow Up 09/28/2024 Travel 09/10/2024 9:30 AM CDT - 09/10/2024 11:59 PM CDT Hospital Encounter [address] [address] Raz Dowd MD Discharge Disposition: Home or Self Care (Routine Discharge) 09/09/2024 9:30 AM CDT - 09/09/2024 11:59 PM CDT Hospital Encounter [facility] [address] [address] Raz Dowd MD Discharge Disposition: Home or Self Care (Routine Discharge) 09/09/2024 Travel 09/08/2024 9:30 AM CDT - 09/08/2024 11:59 PM CDT Hospital Encounter [facility] [address] [address] Raz Dowd MD Discharge Disposition: Home or Self Care (Routine Discharge) 09/08/2024 Travel 09/07/2024 9:30 AM CDT - 09/07/2024 11:59 PM CDT Hospital Encounter [address] [address] Raz Dowd MD Discharge Disposition: Home or Self Care (Routine Discharge) 09/06/2024 9:30 AM CDT - 09/06/2024 11:59 PM CDT Hospital Encounter [address] [address] Raz Dowd MD Discharge Disposition: Home or Self Care (Routine Discharge) 09/06/2024 Travel 09/03/2024 9:30 AM CDT - 09/03/2024 11:59 PM CDT Hospital Encounter [address] [address] Raz Dowd MD Discharge Disposition: Home or Self Care (Routine Discharge) 09/03/2024 Travel 09/02/2024 9:30 AM CDT - 09/02/2024 11:59 PM CDT Hospital Encounter [address] [address] Raz Dowd MD Discharge Disposition: Home or Self Care (Routine Discharge) 09/02/2024 Travel 09/01/2024 9:30 AM CDT - 09/01/2024 11:59 PM CDT Hospital Encounter [facility] [address] [address] Raz Dowd MD Discharge Disposition: Home or Self Care (Routine Discharge) 08/31/2024 9:30 AM CDT - 08/31/2024 11:59 PM CDT Hospital Encounter [address] [address] Raz Dowd MD Discharge Disposition: Home or Self Care (Routine Discharge) 08/31/2024 Travel 08/30/2024 9:30 AM CDT - 08/30/2024 11:59 PM CDT Hospital Encounter [address] [address] Raz Dowd MD Discharge Disposition: Home or Self Care (Routine Discharge) 08/30/2024 Travel 08/27/2024 9:25 AM CDT - 08/27/2024 11:59 PM CDT Hospital Encounter [address] [address] Raz Dowd MD Discharge Disposition: Home or Self Care (Routine Discharge) 08/26/2024 9:30 AM CDT - 08/26/2024 11:59 PM CDT Hospital Encounter [address] [address] Raz Dowd MD Discharge Disposition: Home or Self Care (Routine Discharge) 08/26/2024 Travel 08/25/2024 9:30 AM CDT - 08/25/2024 11:59 PM CDT Hospital Encounter [address] [address] Raz Dowd MD Discharge Disposition: Home or Self Care (Routine Discharge) 08/25/2024 Travel 08/24/2024 9:21 AM CDT - 08/24/2024 11:59 PM CDT Hospital Encounter [address] [address] Raz Dowd MD Discharge Disposition: Home or Self Care (Routine Discharge) 08/23/2024 11:30 AM CDT - 08/23/2024 11:59 PM CDT Hospital Encounter [address] [address] Raz Dowd MD Discharge Disposition: Home or Self Care (Routine Discharge) 08/23/2024 Travel 08/19/2024 5:22 PM CDT - 08/19/2024 11:59 PM CDT Hospital Encounter [facility] [address] [place] [address] Antonietta Veronica MD Discharge Disposition: Home or Self Care (Routine Discharge) 08/19/2024 Orders Only [facility] [address] [place] [address] Antonietta Veronica MD 08/18/2024 12:30 PM CDT - 08/18/2024 11:59 PM CDT Hospital Encounter [address] [address] Raz Dowd MD Discharge Disposition: Home or Self Care (Routine Discharge) 08/18/2024 12:05 PM CDT - 08/18/2024 12:29 PM CDT Hospital Encounter [facility] [address] [place] [address] Raz Dowd MD Discharge Disposition: Home or Self Care (Routine Discharge) 08/18/2024 9:29 AM CDT - 08/18/2024 12:04 PM CDT Hospital Encounter [facility] [address] [place] [address] Antonietta Veronica MD Discharge Disposition: Home or Self Care (Routine Discharge) 08/18/2024 Orders Only [facility] [address] [place] [address] Antonietta Veronica MD 08/17/2024 11:00 AM CDT - 08/17/2024 11:59 PM CDT Hospital Encounter [address] [place] [address] Raz Dowd MD Discharge Disposition: Home or Self Care (Routine Discharge) 08/17/2024 Travel 2024 9:24 AM RADIO TIME BUYER - 2024 11:59 PM RADIO TIME BUYER Hospital Encounter [facility] [address] [place] [address] Raz Dowd MD Discharge Disposition: Home or Self Care (Routine Discharge) 2024 Travel 08/03/2024 10:52 AM RADIO TIME BUYER - 08/03/2024 11:59 PM RADIO TIME BUYER Hospital Encounter [facility] - [address] [address] Raz Dowd MD Discharge Disposition: Home or Self Care (Routine Discharge) 08/03/2024 Travel 07/23/2024 9:53 AM RADIO TIME BUYER - 07/23/2024 11:59 PM RADIO TIME BUYER Hospital Encounter [facility] [address] [place] [address] Antonietta Veronica MD Discharge Disposition: Home or Self Care (Routine Discharge) 07/23/2024 Orders Only [facility] [place] [address] [address] [place] [address] Antonietta Veronica MD 07/20/2024 11:00 AM RADIO TIME BUYER Initial Consult [facility] [address] [place] [address] Rachael Rocha MD Consult (Possible cholangiocarcinoma) 07/20/2024 Travel 07/16/2024 12:38 PM RADIO TIME BUYER - 07/16/2024 11:59 PM RADIO TIME BUYER Hospital Encounter [facility] [address] [place] [address] Antonietta Veronica MD Discharge Disposition: Home or Self Care (Routine Discharge) 07/16/2024 Orders Only [facility] [address] [place] [address] Antonietta Veronica MD 07/15/2024 12:19 PM RADIO TIME BUYER - 07/15/2024 11:59 PM RADIO TIME BUYER Hospital Encounter [facility] [place] [address] Antonietta Veronica MD Discharge Disposition: Home or Self Care (Routine Discharge) 07/15/2024 Travel from Last 3 Months Social History Tobacco Use Types Packs/Day Years Used Date Smoking Tobacco: Never Assessed Sex and Gender Information Value Date Recorded Sex Assigned at Male 07/20/2024 11:00 AM RADIO TIME BUYER Legal Sex Male 10:49 PM RADIO TIME BUYER Gender Identity Not on file Sexual Orientation Not on file Last Filed Vital Signs Vital Sign Reading Time Taken Comments Blood Pressure 103/62 09/28/2024 1:51 PM CDT Pulse 84 09/28/2024 1:51 PM CDT Temperature 36.1 C (96.9 F) 09/28/2024 1:51 PM CDT Respiratory Rate 16 09/28/2024 1:51 PM CDT Oxygen Saturation 100% 09/28/2024 1:51 PM CDT Inhaled Oxygen Concentration - - Weight 63.2 kg (139 lb 6.4 oz) 09/28/2024 1:51 PM CDT Height 165.1 cm (5' 5 ) 07/20/2024 11:39 AM RADIO TIME BUYER Body Mass Index 23.2 07/20/2024 11:39 AM RADIO TIME BUYER Plan of Treatment Health Maintenance Due Date [...] 08/2023, 04/10/2023, Additional history exists Pneumococcal Vaccine: 50+ Years Completed 02/29/2016, 03/30/2014 Zoster Vaccines Completed [...] Procedure Name Priority Date/Time Associated Diagnosis Comments CT CHEST+ABD+PEL W CON Routine 1:47 PM CDT Cholangiocarcinoma (CMS/HCC HHS/HCC) COMPREHENSIVE METABOLIC PANEL Routine 08/19/2024 4:40 PM CDT 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) CT RAD THRPY PLAN WO CON Routine 08/18/2024 12:51 PM CDT Intrahepatic bile duct carcinoma (CMS/HCC HHS/HCC) BASIC METABOLIC PANEL Routine 08/18/2024 9:10 AM CDT 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) PET EYE TO THIGH [id number] Routine 2024 11:23 AM RADIO TIME BUYER Intrahepatic bile duct carcinoma (CMS/HCC HHS/HCC) POCT GLUCOSE - FERNANDO DOCKED DEVICE Routine 2024 9:58 AM RADIO TIME BUYER COMPREHENSIVE METABOLIC PANEL Routine 07/23/2024 9:30 AM RADIO TIME BUYER Abnormal results of liver function studies CBC W/DIFF AUTOMATED Routine 07/23/2024 9:30 AM RADIO TIME BUYER Abnormal results of liver function studies BLOOD SMEAR INTERPRETATION BY Routine 07/23/2024 12:00 AM RADIO TIME BUYER URINE BACTERIA CULTURE Routine 12:15 PM RADIO TIME BUYER Abnormal results of liver function studies Hematuria, unspecified CBC W/DIFF AUTOMATED Routine 07/16/2024 12:00 PM RADIO TIME BUYER Abnormal results of liver function studies Hematuria, unspecified COMPREHENSIVE METABOLIC PANEL Routine 07/16/2024 12:00 PM RADIO TIME BUYER Abnormal results of liver function studies Hematuria, unspecified CT CHEST+ABD+PEL W CON Routine 1:18 PM RADIO TIME BUYER Cholangiocarcinoma (CMS/HCC HHS/HCC) LIPID PANEL Routine 04/09/2024 7:19 AM CDT Diabetes mellitus (CMS/HCC HHS/HCC) HTN (hypertension) Mixed hyperlipidemia Lymphocytosis (symptomatic) HEMOGLOBIN, GLYCOSYLATED Routine 04/09/2024 7:19 AM CDT Diabetes mellitus (CMS/HCC HHS/HCC) HTN (hypertension) Mixed hyperlipidemia Lymphocytosis (symptomatic) from Last 3 Months or Most Recently Relevant to Health Maintenance Results * CT CHEST+ABD+PEL W CON (10/07/2024 1:47 PM CDT) Only the most recent of2 resultswithin the time period is included. Anatomical Region Laterality Modality Chest, Abdomen, Pelvis Computed Tomography 10/08/2024 9:22 AM CDT Impressions 10/08/2024 9:43 AM CDT IMPRESSION: 1. Favorable therapeutic response as described. 2. No evidence of metastatic disease. 3. New mild pelvic ascites. 4. Additional chronic/nonurgent findings as described. Ordered By: ANTONIETTA VERONICA Interpreted By: Cj Smith MD, 10/08/2024 9:22 AM Narrative 10/08/2024 9:43 AM CDT [address] [place] [address] Examination: CT of the chest, abdomen and pelvis with contrast. Exam time: 1348 hours Clinical history: Restaging of cholangiocarcinoma, status post SBRT. Comparison: 07/15/2024, CT of the abdomen ([facility]), 05/31/2024; PET/CT scan ([facility] 2024. Technique: Following the administration of intravenous contrast, spiral scanning was performed through the chest, abdomen and pelvis. Sagittal and coronal reconstructions were performed from the data set. A dose lowering technique was used for this procedure, which may include, but is not limited to, dose reduction techniques, automated exposure control, the use of iterative reconstruction and ALARA/Image Gently techniques. Findings: CT CHEST: Calcific coronary artery disease and atherosclerotic calcification of the aorta and arch vessels again evident. The heart and great vessels are otherwise unremarkable. Calcified mediastinal and right hilar lymph nodes are again noted, compatible with old granulomatous disease. Stable mild subcarinal adenopathy is not FDG avid and presumed benign. No new mediastinal or hilar adenopathy is identified. No endobronchial abnormality is identified. Changes of centrilobular emphysema and calcified pulmonary granulomas again noted. The lungs are otherwise clear. No pleural abnormalities are seen. The chest wall structures are unchanged. No suspicious bony lesion is identified. CT ABDOMEN AND PELVIS: Right and left lobe biliary stents remain in place in satisfactory position. Persistent mild intrahepatic biliary ductal dilatation is similar to 07/15/2024. Minimal pneumobilia is noted consistent with the presence of the stents. Approximately 1.5 cm mass in the hepatic hilus present on 05/31/2024 is no longer apparent compatible with favorable therapeutic response. Calcified hepatic granuloma is noted. The liver, spleen, gallbladder, pancreas and adrenal glands are otherwise unremarkable. 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 The kidneys are otherwise unremarkable. The urinary bladder appears unremarkable. The prostate remains enlarged but shows no dominant focal abnormality. A normal- appearing appendix is visible. Colonic diverticulosis is again noted without signs of diverticulitis. There is new mild pelvic ascites. There is no localized fluid collection, lymphadenopathy or bowel distention. The caliber of the abdominal aorta is normal. No suspicious bony lesion is identified. Stable mild wedge compression deformities of T12 and L1 again evident on sagittal reconstruction. Procedure Note Cj Smith MD - 10/08/2024 [facility] [address] [place] [address] Examination: CT of the chest, abdomen and pelvis with contrast. Exam time: 1348 hours Clinical history: Restaging of cholangiocarcinoma, status post SBRT. Comparison: 07/15/2024, CT of the abdomen ([facility]), 05/31/2024; PET/CT scan ([facility]), 2024. Technique: Following the administration of intravenous contrast, spiralscanning was performed through the chest, abdomen and pelvis. Sagittal andcoronal reconstructions were performed from the data set. A dose loweringtechnique was used for this procedure, which may include, but is notlimited to, dose reduction techniques, automated exposure control, the useof iterative reconstruction and ALARA/Image Gently techniques. Findings: CT CHEST: Calcific coronary artery disease and atheroscleroticcalcification of the aorta and arch vessels again evident. The heart andgreat vessels are otherwise unremarkable. Calcified mediastinal and righthilar lymph nodes are again noted, compatible with old granulomatousdisease. Stable mild subcarinal adenopathy is not FDG avid and presumedbenign. No new mediastinal or hilar adenopathy is identified. Noendobronchial abnormality is identified. Changes of centrilobularemphysema and calcified pulmonary granulomas again noted. The lungs areotherwise clear. No pleural abnormalities are seen. The chest wallstructures are unchanged. No suspicious bony lesion is identified. CT ABDOMEN AND PELVIS: Right and left lobe biliary stents remain in placein satisfactory position. Persistent mild intrahepatic biliary ductaldilatation is similar to 07/15/2024. Minimal pneumobilia is noted consistentwith the presence of the stents. Approximately 1.5 cm mass in the hepatichilus present on 05/31/2024 is no longer apparent compatible withfavorable therapeutic response. Calcified hepatic granuloma is noted. Theliver, spleen, gallbladder, pancreas and adrenal glands are otherwiseunremarkable. 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 The urinary bladder appearsunremarkable. The prostate remains enlarged but shows no dominant focalabnormality. A normal-appearing appendix is visible. Colonicdiverticulosis is again noted without signs of diverticulitis. There isnew mild pelvic ascites. There is no localized fluid collection,lymphadenopathy or bowel distention. The caliber of the abdominal aorta isnormal. No suspicious bony lesion is identified. Stable mild wedgecompression deformities of T12 and L1 again evident on sagittalreconstruction. IMPRESSION: 1. Favorable therapeutic response as described. 2. No evidence of metastatic disease. 3. New mild pelvic ascites. 4. Additional chronic/nonurgent findings as described. Ordered By: ANTONIETTA VERONICA Interpreted By: Cj Smith MD, 10/08/2024 9:22 AM us Antonietta Veronica MD CT Final Result * (ABNORMAL) COMPREHENSIVE METABOLIC PANEL (08/19/2024 4:40 PM CDT) Only the most recent of3 resultswithin the time period is included. SODIUM S/P/B 136 136 - 145 MMOL/L 08/19/2024 5:49 PM CDT [facility] POTASSIUM S/P/B 4.2 3.5 - 5.1 MMOL/L 08/19/2024 5:49 PM CDT [facility] CHLORIDE S/P/B 102 98 - 107 MMOL/L 08/19/2024 5:49 PM CDT [facility] CO2 28.0 21.0 - 32.0 MMOL/L 08/19/2024 5:49 PM CDT [facility] GLUCOSE 112(H) 70 - 99 MG/DL 08/19/2024 5:49 PM CDT [facility] Comment: MILD LIPEMIA. RESULT MAY BE AFFECTED. FASTING GLUCOSE 100 TO 125 MG/DL IS CONSISTENT WITH IMPAIRED FASTING GLUCOSE. FASTING GLUCOSE >125 MG/DL IS CONSISTENT WITH DIABETES. RANDOM GLUCOSE >200 MG/DL WITH HYPERGLYCEMIC SYMPTOMS IS CONSISTENT WITH DIABETES. PER ADA GUIDELINES BUN 14 6 - 24 MG/DL 08/19/2024 5:49 PM CDT [facility] CREATININE S/P/B 0.71 0.70 - 1.30 MG/DL 08/19/2024 5:49 PM CDT [facility] CALCIUM S/P/B 8.5 8.4 - 10.5 MG/DL 08/19/2024 5:49 PM CDT [facility] BILIRUBIN TOTAL S/P/B 1.0 0.2 - 1.0 MG/DL 08/19/2024 5:49 PM CDT [facility] Comment: THIS ASSAY IS NOT RECOMMENDED FOR PATIENTS UNDERGOING TREATMENT WITH ELTROMBOPAG DUE TO THE POTENTIAL FOR FALSELY ELEVATED RESULTS. ALKALINE PHOSPHATASE S/P/B 309(H) 45 - 115 U/L 08/19/2024 5:49 PM CDT [facility] AST 36 15 - 37 U/L 08/19/2024 5:49 PM CDT [facility] ALT 56 16 - 63 U/L 08/19/2024 5:49 PM CDT [facility] TOTAL PROTEIN S/P/B 6.3(L) 6.4 - 8.2 G/DL 08/19/2024 5:49 PM CDT [facility] ALBUMIN S/P/B 2.5(L) 3.4 - 5.0 G/DL 08/19/2024 5:49 PM CDT [facility] ANION GAP 6.0 5.0 - 15.0 MMOL/L 08/19/2024 5:49 PM CDT [facility] OSMOLALITY (CALC) 283 MOSM/KG 025 5:49 PM CDT [facility] Comment:REFERENCE RANGE NOT ESTABLISHED GFR ESTIMATE >90 >89 ML/MIN/1. 73 M2 08/19/2024 5:49 PM CDT [facility] GFR NOTES GFR REFERENCE S: 08/19/2024 5:49 PM CDT [facility] Comment: THE ESTIMATED GFR IS CALCULATED [...] <15 ml/min/1.73 m2 08/19/2024 4:40 PM CDT us Antonietta Veronica MD LABORATORY Final Result [facility] [address] [place] [address], * CT RAD THRPY PLAN WO CON (08/18/2024 12:51 PM CDT) Anatomical Region Laterality Modality Undefined Computed Tomogra phy 08/18/2024 4:03 PM CDT Impressions 08/18/2024 4:10 PM CDT IMPRESSION: Radiation therapy planning CT scan as described. Ordered By: RAZ DOWD Interpreted By: Cj Smith MD, 08/18/2024 4:03 PM Narrative 08/18/2024 4:10 PM CDT [id number] [place] [address] Examination: Radiation therapy planning CT scan. Exam [...] Procedure Note Cj Smith MD - 08/18/2024 [facility] [address] [place] [address] Examination: Radiation therapy planning CT scan. Exam [...] Cj Smith MD, 08/18/2024 4:03 PM Raz oDwd MD CT Final Result * (ABNORMAL) BASIC METABOLIC PANEL (08/18/2024 9:10 AM CDT) SODIUM S/P/B 137 136 - 145 MMOL/L 08/18/2024 10:30 AM CDT [facility] POTASSIUM S/P/B 4.2 3.5 - 5.1 MMOL/L 08/18/2024 10:30 AM CDT [facility] CHLORIDE S/P/B 102 98 - 107 MMOL/L 08/18/2024 10:30 AM CDT [facility] CO2 26.9 21.0 - 32.0 MMOL/L 08/18/2024 10:30 AM T [facility] GLUCOSE 143(H) 70 - 99 MG/DL 08/18/2024 10:30 AM T [facility] Comment: FASTING GLUCOSE 100 TO 125 MG/DL IS CONSISTENT WITH IMPAIRED FASTING GLUCOSE. FASTING GLUCOSE >125 MG/DL IS CONSISTENT WITH DIABETES. RANDOM GLUCOSE >200 MG/DL WITH HYPERGLYCEMIC SYMPTOMS IS CONSISTENT WITH DIABETES. PER ADA GUIDELINES BUN 18 6 - 24 MG/DL 08/18/2024 10:30 AM CDT [facility] CREATININE S/P/B 0.72 0.70 - 1.30 MG/DL 08/18/2024 10:30 AM T [facility] CALCIUM S/P/B 8.7 8.4 - 10.5 MG/DL 08/18/2024 10:30 AM T [facility] ANION GAP 8.1 5.0 - 15.0 MMOL/L 08/18/2024 10:30 AM [facility] OSMOLALITY (CALC) 288 MOSM/KG 025 10:30 AM T [facility] Comment:REFERENCE RANGE NOT ESTABLISHED GFR ESTIMATE >90 >89 ML/MIN/1. 73 M2 08/18/2024 10:30 AM T [facility] GFR NOTES GFR REFERENCE S: 08/18/2024 10:30 AM T [facility] Comment: THE ESTIMATED GFR IS CALCULATED [...] <15 ml/min/1.73 m2 08/18/2024 9:10 AM CDT Antonietta Veronica MD LABORATORY Final Result [facility] [address] [place] [address], * PET EYE TO THIGH [id number] (2024 11:23 AM RADIO TIME BUYER) Anatomical Region Laterality Modality Body Positron Emissio n Tomography (PET), Positron Emission Tomography (PET) 2024 1:49 PM RADIO TIME BUYER Impressions 2024 3:34 PM RADIO TIME BUYER IMPRESSION: 1. Moderately hypermetabolic focal FDG uptake [...] 2024 1:49 PM Narrative 2024 3:34 PM RADIO TIME BUYER [address] [address] EXAMINATION: TUMOR FDG-PET/CT IMAGING DATE OF STUDY: 2024 10:11 AM SCANNER: [facility] RADIOPHARMACEUTICAL: 11.6 mCi F-18 Fluorodeoxyglucose (FDG) i.v. Injection site: Left antecubital fossa HISTORY: Recent 1.5 cm mass in the hepatic hilum with narrowing of the biliary confluence. Status post ERCP with stenting. [place] biopsies demonstrated adenocarcinoma. The study is requested [...] obtained. The study was interpreted on the [employer] workstation. The mean liver SUV (reported for it quality assurance analyst purposes) is 2.7. The total scanned area [...] Procedure Note Evy Larson MD - [address] [address] EXAMINATION: TUMOR FDG-PET/CT IMAGING DATE OF STUDY: 2024 10:11 AM SCANNER: [facility] RADIOPHARMACEUTICAL: 11.6 mCi F-18 Fluorodeoxyglucose (FDG) i.v.Injection site: Left antecubital fossa HISTORY: Recent 1.5 cm mass in the hepatic hilum with narrowing of thebiliary confluence. Status post ERCP with stenting. [place] biopsiesdemonstrated adenocarcinoma. The study is requested for initial staging. Initial treatment strategy. TECHNIQUE: The patient's fasting blood glucose level, measured byglucometer before injection of FDG, was 110 mg/dL. NOAMGastroview was notgiven orally. After intravenous administration of FDG, noncontrast CTimages were obtained for attenuation correction and for fusion withemission PET images to allow for anatomical localization of PET findings.Emission PET images were then obtained. The study was interpreted on [employer] workstation. The mean liver SUV (reported for [...] By: Ilya Peng MD, 2024 1:49 PM us Raz Dowd MD PET Final Result * (ABNORMAL) POCT glucose (2024 9:58 AM RADIO TIME BUYER) GLUCOSE POC 110(H) 70 - 109 2024 10:00 AM [facility] 2024 9:58 AM RADIO TIME BUYER Raz Dowd MD POCT ORDERABLES - DEVICE Final Result [facility] [address] [place] [address], [place] [phone] * (ABNORMAL) CBC W/DIFF AUTOMATED (07/23/2024 9:30 AM RADIO TIME BUYER) Only the most recent of2 resultswithin the time period is included. WBC 14.67(H) 4.00 - 10.80 x10'3/uL 07/23/2024 10:23 AM [facility] RBC 3.22(L) 4.50 - 6.10 x10'6/uL 07/23/2024 10:23 AM [facility] HGB 10.8(L) 13.0 - 18.0 G/DL 07/23/2024 10:23 AM [facility] HCT 31.5(L) 37.0 - 52.0 % 07/23/2024 10:23 AM [facility] MCV 97.8 78.0 - 100.0 FL 07/23/2024 10:23 AM [facility] MCH 33.5(H) 27.0 - 31.0 PG 07/23/2024 10:23 AM [facility] MCHC 34.3 33.0 - 36.0 G/DL 07/23/2024 10:23 AM [facility] RDW 14.8(H) 11.5 - 14.5 % 07/23/2024 10:23 AM [facility] PLT 162 150 - 350 x10'3/uL 07/23/2024 10:23 AM [facility] MPV 9.9 7.4 - 10.4 FL 07/23/2024 10:23 AM [facility] CBC COMMENT NORMAL REFERENCE RANGE NOT ESTABLISHED FOR THE PROPORTIONAL LEUKOCYTE DIFFERENTIAL. 07/23/2024 10:23 AM [facility] SEG NEUTROPHILS 36 % 10:36 AM [facility] LYMPHOCYTES 52 % 07/23/2024 10:36 AM [facility] MONOCYTES 8 % 07/23/2024 10:36 AM [facility] EOSINOPHILS 4 % 07/23/2024 10:36 AM [facility] ABS SEGMENTED NEUTS 5.28 1.60 - 8.30 x10'3/uL 07/23/2024 10:36 AM [facility] ABS. LYMPHOCYTES 7.63(H) 0.80 - 4.70 x10'3/uL 07/23/2024 10:36 AM [facility] ABS. MONOCYTES 1.17 0.10 - 1.50 x10'3/uL 07/23/2024 10:36 AM [facility] ABS. EOSINOPHILS 0.59(H) 0.00 - 0.40 x10'3/uL 07/23/2024 10:36 AM [facility] PLT MORPH. NORMAL 07/23/2024 10:36 AM [facility] RBC MORPHOLOGY 1+ 07/23/2024 10:36 AM [facility] Comment: ANISOCYTOSIS 1+ POIKILOCYTOSIS 1+ MACROCYTES WBC MORPHOLOGY MANY ATYPICAL LYMPHS 07/23/2024 10:36 AM [facility] 07/23/2024 9:30 AM RADIO TIME BUYER us Antonietta Veronica MD LABORATORY Final Result [facility] [address] [place] [address], * BLOOD SMEAR INTERPRETATION BY (07/23/2024 12:00 AM RADIO TIME BUYER) PATHOLOGY [facility] Department of Laboratory Medicine [address] [place] [address] , extension [phone] Pathology Report Peripheral Smear Report Name: SOFIA FUCHS Specimen #: [id number] Age: 3 1945 (Age: 78) Location: Sex: M Procedure Date: 07/23/2024 Hospital #: [id number] Date Received: 07/26/2024 Date Reported: 07/26/2024 Provider: [...] interpretation, and sign out were performed at [facility], [address] [place] [address], [place] [address]. [facility] 07/23/2024 07/26/2024 1:5 1 PM RADIO TIME BUYER Comment:Peripheral blood us Antonietta Veronica MD LABORATORY Final Result Performing Organization Address [facility] [address]/[facility] Co de Phone Number [facility] [address] [place] [address], [place] [phone] * URINE BACTERIA CULTURE (07/16/2024 12:15 PM RADIO TIME BUYER) SPEC DESCRIPTION URINE CLEAN CATCH 07/16/2024 12:40 PM RADIO TIME BUYER [facility] SPECIAL REQUESTS NO SPECIAL REQUEST 07/16/2024 12:40 PM RADIO TIME BUYER [facility] CULTURE RESULT NO GROWTH (< OR = 1,000 CFU/ML) 07/18/2024 10:47 AM RADIO TIME BUYER [facility] URINE SPECIMEN OBTAINED BY CLEAN CATCH PROCEDURE / Unknown 07/16/2024 12:15 PM RADIO TIME BUYER 07/16/2024 12:35 PM RADIO TIME BUYER us Antonietta Veronica MD MICROBIOLOGY - GENERAL ORDERA BLES Final Result Performing Organization Address [facility] [address]/[facility] Co de Phone Number [facility] [address] [place] [address], [place] [phone] [facility] [place] [address], [place] [phone] * (ABNORMAL) HEMOGLOBIN, GLYCOSYLATED (04/09/2024 7:19 AM CDT) HGB A1C 6.3(H) <5.7 % 04/09/2024 1:59 PM CDT [facility] ESTIMATED AVG GLUCOSE 134(H) 74 - 114 MG/DL 04/09/2024 1:59 PM CDT [facility] 04/09/2024 7:19 AM CDT us Antonietta Veronica MD LABORATORY Final Result Performing Organization Address [facility] [address]/ZIP Co de Phone Number [facility] [address] [place] [address], [place] [phone] * LIPID PANEL (04/09/2024 7:19 AM CDT) CHOLESTEROL 176 MG/DL 04/09/2024 1:31 PM CDT [facility] Comment:DESIRABLE: <200 TRIGLYCERIDES 176 MG/DL 04/09/2024 1:31 PM CDT [facility] Comment:150-199 BORDERLINE H IGH HDL 62 >39 MG/DL 04/09/2024 1:31 PM CDT [facility] LDL-C 79 MG/DL 04/09/2024 1:31 PM CDT [facility] Comment:<100 OPTIMAL VLDL CALCULATION 35 MG/DL 04/09/20 1:31 PM CDT [facility] Comment:REFERENCE RANGE NOT ESTABLISHED CHOL/HDL RATIO 2.8 04/09/2024 1:31 PM CDT [facility] Comment:REFERENCE RANGE NOT ESTABLISHED LDL/HDL 1.3 04/09/2024 1:31 PM CDT [facility] Comment:REFERENCE RANGE NOT ESTABLISHED NON HDL CHOLESTEROL 114 MG/DL 04/09/2024 1:31 PM CDT [facility] Comment:REFERENCE RANGE NOT ESTABLISHED 04/09/2024 7:19 AM CDT Antonietta Veronica MD LABORATORY Final Result [facility] [address] [place] [address], [phone] from Last 3 Months or Most Recently Relevant to Health Maintenance Insurance MEDICARE [facility] Care Teams Final Assembly And Packing Supervisor Relationship Specialty Start Date End Date Antonietta Veronica MD [address] [place] [address] PCP - General INTERNAL MEDICINE 04/19/22
--- OUTSIDE RECORDS SUMMARY | 2024-10-11 15:40 | XMS_ITS | Encounter Summary ---
Author Organization [facility] Address [address] [place] [address] Care Team Providers Care Content Editor Name Role Phone Flo Torres MD Primary Care Provider [phone] Reason for Visit * Reason Comments Results Encounter Details Date Type Department Care Team (Late st Contact Info) Description 07/07/2024 Telephone [facility] - [address] [place] [address] [place] [id number] Kat Adkins RN Results Social History Tobacco Use Types Packs/Day Years Used Date Smoking Tobacco: Former Cigarettes Q uit: 1989 Smokeless Tobacco: Never Alcohol Use Standard Drinks/Week Comments Not Currently 0 (1 standard drink = 0.6 oz pur e alcohol) Sex and Gender Information Value Date Recorded Sex Assigned at Not on file Legal Sex Male 5:52 AM CDT Gender Identity Not on file Sexual Orientation Not on file documented as of this encounter Functional Status * Is person deaf or have serious hearing difficulty? Answer Date of Assessment Author No 06/22/2024 3:15 PM Azalia Goins RN * Is person blind or have serious difficulty seeing? Answer Date of Assessment Author No 06/22/2024 3:15 PM Azalia Goins RN * Does person have serious difficulty walking/climbing stairs? Answer Date of Assessment Author Yes 06/22/2024 3:15 PM Azalia Goins RN * Does person have difficulty dressing/bathing? Answer Date of Assessment Author Yes 06/22/2024 3:15 PM Azalia Goins RN * Does person have difficulty doing errands alone? Answer Date of Assessment Author Yes 06/22/2024 3:15 PM PILL MAKER Azalia Hernandez RN documented as of this encounter Mental Status * Does person have difficulty concentrating/remembering/making decisions? Answer Entry Date Author No 06/22/2024 3:15 PM PILL MAKER Azalia Hernandez RN documented in this encounter Miscellaneous Notes * Telephone Encounter - Kat Adkins RN - 07/07/2024 5:10 PM CST Call received from pt's Kat to inquire about recent ERCP - adenocarcinoma identified. Kat reports pathology sent to [facility]. Inquiring if report is back. RN reports nothing posted to [facility]. RN encourages a call to Dr. Cannon to inquire if report returned from [facility]. Kat reports pt to be exhausted, and denies interest in traveling to [facility] for treatment if recommended. Emair message sent to Dr. Ontiveros. MAKER documented in this encounter Plan of Treatment Upcoming Encounters Date Type Department Care Team (Latest Contact Info) Description 01/03/2025 10:00 AM CDT Hospital Encounter [facility] [address] [place] [phone] Yayo Bauer MD [address] [place] [address] [address] [place] [phone] Surgery General 01/03/2025 10:00 AM CDT - 01/03/2025 11:00 AM CDT Surgery [facility] [address] [place] [phone] Yayo Bauer MD [address] [place] [address] [address] [place] [phone] ENDOSCOPIC RETROGRADE CHOLANGIOPANCREATOGRAPHY (ERCP) Scheduled Procedures Name Priority Associated Diagnoses Date/Ti co ENDOSCOPIC RETROGRADE CHOLANGIOPANCREATOGRAPHY (ERCP) Encounter for removal of biliary stent 01/03/2025 10:00 AM CDT documented as of this encounter Visit Diagnoses Not on filedocumented in this encounter Care Teams Content Editor Relationship Specialty Start Date End Date Torres, Rajneesh S, MD [address] [place] [address] PCP - General 02/05/21 documented as of this encounter
--- OUTSIDE RECORDS SUMMARY | 2024-10-11 15:40 | XMS_ITS | Encounter Summary ---
Author Organization [facility] Address [address] [place] [address] Care Team Providers Care Mingler Operator Name Role Phone Flo Torres MD Primary Care Provider [phone] Reason for Visit * Reason Onset Date Comments Information 10/11/2024 Encounter Details Date Type Department Care Team (Late st Contact Info) Description 10/11/[address] [place] [address] Rachael Rocha MD [address] [place] [phone] Information Social History Tobacco Use Types Packs/Day Years Used Date Smoking Tobacco: Never Assessed Sex and Gender Information Value Date Recorded Sex Assigned at Male 07/20/2024 11:00 AM WINDOW TREATMENT INSTALLER Legal Sex Male 10:49 PM WINDOW TREATMENT INSTALLER Gender Identity Not on file Sexual Orientation Not on file documented as of this encounter Progress Notes * Rajan [place] RN - 10/11/2024 8:36 AM CDT Patients called and said his PCP ordered a scan to be done. Unsure why since I thought Rad Oncwould be ordering one 3-6 weeks after his radiation. But, anyway his said she would like you to view them and let her know. She said the PCP told her they were clear and she wants to know. Please advise. documented in this encounter Plan of Treatment Not on file documented as of this encounter Visit Diagnoses Not on filedocumented in this encounter Care Teams Mingler Operator Relationship Specialty Start Date End Date Flo Torres MD [address] [place] [address] PCP - General INTERNAL MEDICINE 04/19/22 documented as of this encounter
--- OUTSIDE RECORDS SUMMARY | 2024-10-11 15:40 | XMS_ITS | Clinical Summary ---
Author Organization [facility] Address [address] [address] Care Team Providers Care Clinic Administrator Name Role Phone Flo Torres MD Primary Care Provider [phone] Source Comments [facility],non-owned Affiliates and Associated Physician Practices is amultiple site organization consisting of ambulatory clinics and hospital sitesin [place], [place], [place] and [place]. This disclosure is being madepursuant to the Care Everywhere program and may not contain all information available regarding this patient. Last updated 18.[facility] Advice Wallet Allergies Active Allergy Reactions Criticality Noted Date Comments Terbutaline Dizziness 06/20/2024 Medications * Be aware that medications may not be up to date on this document. Alwaysverify current medications with the patient. aspirin (Aspirin) 81 MG chew tablet Take 1 (one) tablet by mouth once daily Active lisinopril (Prinivil; Zestril) 10 MG tablet Take 1 (one) tablet by mouth once daily Active cyanocobalamin (Vitamin B-12) 1000 MCG tablet Take 1 (one) tablet by mouth once daily Active vitamin D3 (Cholecalcifer ol) 25 MCG (1000 UNITS) tablet Take 2 (two) tablets by mouth once daily Active finasteride (Proscar) 5 MG tablet Take 1 (one) tablet by mouth once daily Active tamsulosin (Flomax) 0.4 MG capsule Take 1 (one) capsule by mouth once daily At the same time every day after a meal. Active insulin glargine (Lantus/Semgle e) 100 units/mL pen Inject 10 (ten) Units subcutaneously at bedtime Active cholestyramine (Questran) 4 g packet Take 1 (one) packet by mouth once daily 60 Each 4 Active Additional Information Patient not taking.Reason: Patient adjusted, Reported on 09/27/2024 escitalopram (Lexapro) 10 MG tablet Take 1 (one) tablet by mouth once daily 4 Active memantine (Namenda) 10 MG tablet Take 0.5 (one-half) tablet by mouth once daily 4 Active esomeprazole (NexIUM) 40 MG capsuleIndicat ions:Duodenal Ulcer Take 1 (one) capsule by mouth 2 times daily, before breakfast and supper for 90 days Reasons: Ulcer of the Duodenum 180 capsule 5 Active NovoLOG FLEXPEN pen Inject 5 (five) Units subcutaneously 3 times daily 4 Active methocarbamol (Robaxin) 500 MG tablet Take 1 (one) tablet by mouth every 6 hours as needed for Muscle Spasms 90 tablet 1 5 Active Active Problems Problem Noted Date Diagnosed Date Weakness 06/20/2024 Jaundice 06/20/2024 Fall, initial encounter 06/20/2024 Total bilirubin, elevated 06/20/2024 Hypotension, unspecified hypotension type 2024 Malaise and fatigue 06/01/2024 Painless jaundice 06/01/2024 Encounters Date Type Department Care Team Description 10/06/2024 Telephone [facility] ENDOSCOPY [address] [place] [address] Madina Watson Procedure (Ercp Rescheduled ) 10/01/2024 10:00 AM CDT - 10/01/2024 11:00 AM CDT Surgery [facility] ENDOSCOPY [address] [place] [address] Yayo Bauer MD ENDOSCOPIC RETROGRADE CHOLANGIOPANCREATOGRAPHY (ERCP) 10/01/2024 10:00 AM CDT Anesthesia Event [facility] END[facility] [address] [place] [address] Denise Kline MD Keeven, Grace C, SHEET ROCK SANDER-SOUNDSCRIBER MECHANIC 10/01/2024 9:17 AM CDT - 10/01/2024 11:40 AM CDT Hospital Encounter [facility] OP [address] [place] [address] Yayo Bauer MD Surgery General Discharge Disposition: Home or Self Care 10/01/2024 Telephone [facility] - GI [address] [place] [phone] Michael Haney, photographic platemaker (3mo follow up ERCP for stent check / revision / jaundice with Dr. Harrington) 10/01/2024 Travel 09/27/2024 Travel 09/16/2024 Telephone [facility] - [address] [place] [address] Michael Haney, photographic platemaker (3mo follow up ERCP for stent revision with Dr Ontiveros) 09/14/2024 Telephone [facility] PAT [address] [place] [phone] Yessi Ontiveros DO Pre-op Clearance 09/14/2024 Telephone [facility] ENDOSCOPY [address] [place] [address] Madina Watson Procedure (Ercp Cancellation) 08/03/2024 Telephone [facility] RAD ONC [facility] [place] [address] Silvia Stringer RN General from Last 3 Months Social History Tobacco [...] Sign Reading Time Taken Comments Blood Pressure 120/59 10/01/2024 11:20 AM CDT Pulse 67 10/01/2024 11:20 AM CDT Temperature 36.7 C (98 F) 10/01/2024 11:20 AM CDT Respiratory Rate 17 10/01/2024 11:20 AM CDT Oxygen Saturation 97% 10/01/2024 11:20 AM CDT Inhaled Oxygen Concentration - - Weight 63.5 kg (140 lb) 10/01/2024 9:37 AM CDT Height 165.1 cm (5' 5 ) 10/01/2024 9:37 AM CDT Body Mass Index 23.3 10/01/2024 9:37 AM CDT Plan of Treatment Upcoming Encounters Date Type Department Care Team (Latest Contact Info) Description 01/03/2025 10:00 AM CDT Hospital Encounter [facility] ENDOSCOPY [address] [place] [phone] Yayo Bauer MD [address] [place] [address] [address] [place] [address] Surgery General 01/03/2025 10:00 AM CDT - 01/03/2025 11:00 AM CDT Surgery [facility] END[facility] [address] [place] [address] Yayo Bauer MD [address] [place] [address] [address] [place] [address] ENDOSCOPIC RETROGRADE CHOLANGIOPANCREATOGRAPHY (ERCP) Scheduled Procedures Name Priority Associated Diagnoses Date/Ti me ENDOSCOPIC RETROGRADE CHOLANGIOPANCREATOGRAPHY (ERCP) Encounter for removal of biliary stent 01/03/2025 10:00 AM CDT Health Maintenance Due Date Last Done Comments [...] this topic Medical Devices Implanted Type Area Lead Sales Consultant Device Identifier Shelf Expiration Date Model / Serial / Lot Stent Biliary 10fr 10cm .035in Pstn Slv Implanted:Qty: 1 on 10/01/2024 by Yayo Bauer MD at [facility] [employer] [id number] 07/30/2027 [id number] / / [id number] Stent Biliary 8.5fr 12cm Cntr Bnd Implanted:Qty: 1 on 10/01/2024 by Yayo Bauer MD at [facility] [employer]rell[employer] [id number] 05/11/2026 [id number] / / [id number] Explanted Type Area Lead Sales Consultant Device Identifier Shelf Expiration Date Model / Serial / Lot Stent Biliary 7fr 12cm Ddnl Bnd Preld Implanted:Qty: 1 on 06/22/2024 by Yessi Ontiveros DO at [facility] Explanted:Qty: 1 on 10/01/2024 by Yayo Bauer MD at [facility] N/A: Bile Duct [employer] [id number] 07/20/2025 [id number] / / [id number] Stent Biliary 7fr 12cm Ddnl Bnd Preld Implanted:Qty: 1 on 06/22/2024 by Yessi Ontiveros DO at [facility] Explanted:Qty: 1 on 10/01/2024 by Yayo Bauer MD at [facility] N/A: Bile Duct [employer] [id number] 08/27/2025 [id number] / / [id number] Procedures Procedure Name Priority Date/Time Associated Diagnosis Comments GA ERCP DX W BRUSH WASH WHEN PERF 10/01/2024 9:55 AM CDT Encounter for removal of biliary stent GLUCOSE - POINT OF CARE Routine 10/01/2024 9:43 AM CDT ERCP Routine 10/01/2024 9:35 AM CDT from Last 3 Months Results * (ABNORMAL) GLUCOSE - POINT OF CARE (10/01/2024 9:43 AM CDT) Glucose WB/POC 136(H) 70 - 99 mg/dL 10/01/2024 12:58 PM CDT [facility] Specimen Type Venous 10/01/2024 12:58 PM CDT [facility] Blood BLOOD SPECIMEN / Unknown 10/01/2024 9:43 AM CDT 10/01/2024 12:58 PM CDT us Yayo Kee MD LAB - POINT OF CARE ORDERABLES Final Result Performing Organization Address City/State/[facility] de Phone Number [facility] [address] [address], [facility] [phone] * ERCP (10/01/2024 9:35 AM CDT) Pathologist [facility] Report Endoscopy POC Endoscopy Department Report _ Patient Name: Sofia Bates Procedure Date: 10/01/2024 9:35 AM Date of : 1945 Classification: Outpatient Gender: Male Ethnicity: Not or Race: White _ Providers: Yayo Kee MD Referring MD: Gale Cannon MD; Flo Torres MD; Raz Dowd MD Procedure: ERCP Indications: Stent change, Jaundice Medications: Monitored Anesthesia Care. See the Anesthesia note for documentation of the administered medications. IVFs w/ LR, Indomethacin 100 mg GA. Patient Profile: 79M here for repeat ERCP w/ stent revision. Last exam 06/2024: Gastropathy, pylorus dilated to 15mm to facilitate endoscope passage, non-bleeding duodenal ulcers, biliary sphincterotomy, cholangiogram w/ hilar stricture (bx +CCA) s/p balloon dilation to 6 mm and placement of bilateral plastic stent (7 Fr x 12 cm) to R & L hepatic duct. Interval PET CT w/ multifocal uptake along the intrahepatic portions of the stents and along the distal stents in the distal CBD favored inflammatory / stent related; indeterminate hypermetabolic periportal and portacaval lymph nodes. Description of Procedure: After obtaining informed consent, the scope was passed under direct vision. Throughout the procedure, the patient's blood pressure, pulse, and oxygen saturations were monitored continuously. The duodenoscope was introduced through the mouth, and advanced to the duodenum and used to inject contrast into the bile duct. The ERCP was accomplished without difficulty. The patient tolerated the procedure well. Findings: Pre-existent plastic biliary stents (x2) were visible on the supervisor policy change clerks film in the area of the right upper quadrant of the abdomen. The esophagus was successfully intubated under direct vision without detailed examination of the upper GI tract given the use of a sideviewing duodenoscope. Moderate narrowing and broad areas of superficial ulceration without high risk bleeding stigmata were found in the proximal duodenum. A biliary sphincterotomy had been performed. The sphincterotomy appeared open. Two pre-existent plastic biliary stents originating in the biliary tree were found in place, emerging from the major papilla. The stents were visibly occluded. The two stents were removed from the biliary tree using a snare. A short 0.025 inch Visiglide guidewire was easily passed into the biliary tree on first attempt. An adjustable biliary extraction balloon cannula was passed over the guidewire and the bile duct was then deeply cannulated. Contrast was injected. I personally interpreted the bile duct images. Ductal flow of contrast was adequate. Image quality was adequate. Contrast extended to the hepatic ducts. The cholangiogram demonstrated a Bismuth type II hilar stricture. The area of narrowing was dilated with a 6 mm dilation balloon. The biliary tree was swept with a 9-12 mm adjustable extraction balloon starting at the right and left main hepatic ducts. Moderate volume debris was swept from the ducts till clearance. One 10 Fr by 10 cm transpapillary plastic stent with a single external flap and a single internal flap was placed into the right hepatic duct. Bile flowed through the stent. The stent was in good position. One 8.5 Fr by 12 cm transpapillary plastic stent with a single external flap and a single internal flap was placed into the left hepatic duct. Bile flowed through the stent. The stent was in good position. Estimated Blood Loss: Estimated blood loss was minimal. Complications: No immediate complications. Impression: - Moderate narrowing and broad superficial ulceration without bleeding in the proximal duodenum. - Pre-existent patent biliary sphincterotomy with two transpapillary plastic biliary stents in place with occludding debris. The two stents were removed. - Cholangiogram with Bismuth type II hilar stricture, consistent with known malignancy. - Biliary stricture balloon dilated to 6 mm. - Balloon extraction of debris from the biliary tree till clearance. - One 10 Fr by 10 cm transpapillary plastic stent placed into the right hepatic duct. - One 8.5 Fr by 12 cm transpapillary plastic stent placed into the left hepatic duct. Moderate Sedation: . Recommendation: - Monitor for fevers, bleeding, pain, jaundice. - Start clear liquid diet, and if pain free this evening advance as tolerated. - Resume previous medications today. - Plan for repeat ERCP in 3 months unless sooner if determined by clinical course and labs (LFTs). - Follow-up with the existing providers from Oncology and Radiation Oncology regarding management of known bile duct cancer. - The potential complications and concerning symptoms/findings, including but not limited to early or delayed fevers, infection, pain, bleeding, perforation, pancreatitis, and stent migration/obstruction were discussed with the patient/caregiver. Emergency contact information was provided. Attending Participation: I personally performed the entire procedure. Procedure Code(s): --- Professional --- 48235, Endoscopic retrograde cholangiopancreatography (ERCP); with removal and exchange of stent(s), biliary or pancreatic duct, including pre- and post-dilation and guide wire passage, when performed, including sphincterotomy, when performed, each stent exchanged 10236, 59, Endoscopic retrograde cholangiopancreatography (ERCP); with removal and exchange of stent(s), biliary or pancreatic duct, including pre- and post-dilation and guide wire passage, when performed, including sphincterotomy, when performed, each stent exchanged 05812, 59, Endoscopic retrograde cholangiopancreatography (ERCP); with trans-endoscopic balloon dilation of biliary/pancreatic duct(s) or of ampulla (sphincteroplasty), including sphincterotomy, when performed, each duct 03328, Endoscopic retrograde cholangiopancreatography (ERCP); with removal of calculi/debris from biliary/pancreatic duct(s) 47467, Endoscopic catheterization of the biliary ductal system, radiological supervision and interpretation Diagnosis Code(s): --- Professional --- T85.590A, Other mechanical complication of bile duct prosthesis, initial encounter K83.1, Obstruction of bile duct Z46.59, Encounter for fitting and adjustment of other gastrointestinal appliance and device R17, Unspecified jaundice CPT copyright 2021 [employer]. All rights reserved. The codes documented in this report are preliminary and upon business development executive review may be revised to meet current compliance requirements. Yayo Kee MD 10/01/2024 10:55:51 AM Note Initiated On: 10/01/2024 9:35 AM Number of Addenda: [address] [address] [facility]ATION 10/01/2024 9:35 AM CDT us Yayo Kee MD GI PROCEDURE ORDERAB LES Edited Result - Final [facility] from Last 3 Months Insurance MEDICARE MEDICARE ANTH SELF PAY NO INSURANCE Member Subscriber Plan / Payer (Ef fective for All Dates) Name:PauloSofia bell Member ID:Not on file Relation to Subscriber:Not on file Name:PAULOSOFIA Jones Subscriber ID:Not on file (Home) Address: [address] [place] [address] Payer ID:Not on file Group ID:Not on file Type:Self Pay Address: [place], [place] Advance Directives * Full Code (Latest Code Status on File) Date Activated Date Inactivated Comments 06/20/2024 3:25 AM 06/20/2024 4:00 PM * Full Code Date Activated Date Inactivated Comments 06/01/2024 4:21 AM 06/01/2024 10:48 PM Care Teams Clinic Administrator Relationship Specialty Start Date End Date Flo Torres MD [address] [place] [address] PCP - General 02/05/21
--- OUTSIDE RECORDS SUMMARY | 2024-10-11 15:40 | XMS_ITS | Encounter Summary ---
Author Organization [facility] Address [facility] [facility] [place] [address] Care Team Providers Care Food And Beverage Cashier Name Role Phone Flo Torres MD Primary Care Provider [phone] Encounter Details Date Type Department Care Team (Late st Contact Info) Description 05/27/2024 Lab Requisition [facility] - Pathology Lab [address] [place] [phone] Rivera Reilly MD [address] [address] Illness, unspecified Social History Tobacco Use Types Packs/Day Years Used Date Smoking Tobacco: Never Assessed Sex and Gender Information Value Date Recorded Sex Assigned at Not on file Legal Sex Male 5:52 AM CDT Gender Identity Not on file Sexual Orientation Not on file documented as of this encounter Plan of Treatment Upcoming Encounters Date Type Department Care Team (Latest Contact Info) Description 01/03/2025 10:00 AM CDT Hospital Encounter [facility] ENDOSCOPY [address] [place] [address] Yayo Bauer MD [address] [address] [place] [address] Surgery General 01/03/2025 10:00 AM CDT - 01/03/2025 11:00 AM CDT Surgery [facility] [address] [place] [phone] Yayo Bauer MD [address] [place] [address] ENDOSCOPIC RETROGRADE CHOLANGIOPANCREATOGRAPHY (ERCP) Scheduled Procedures Name Priority Associated Diagnoses Date/Ti pr ENDOSCOPIC RETROGRADE CHOLANGIOPANCREATOGRAPHY (ERCP) Encounter for removal of biliary stent 01/03/2025 10:00 AM CDT documented as of this encounter Procedures Procedure Name Priority Date/Time Associated Diagnosis Comments PATHOLOGY TISSUE Routine 05/25/2024 9:00 AM CHEMICAL APPLICATOR Illness, unspecified documented in this encounter Results * PATHOLOGY TISSUE (05/25/2024 9:00 AM CHEMICAL APPLICATOR) Case Report Surgical Pathology Report Case: [id number] Authorizing Provider: Rivera Reilly MD Collected: 05/25/2024 09:00 AM Ordering Location: [facility] - Received: 05/27/2024 04:08 PM Pathology Lab Pathologist: Lisbeth Yarbrough MD Specimen: Liver 05/28/2024 3:02 PM [facility] Final Diagnosis Liver, biopsy (A): - Marked acute cholestasis (see comment) - No florid duct lesion, granulomas, or features of chronic cholestasis 05/28/2024 3:02 PM [facility] Microscopic Description and Comment The [...] The trichrome stain (including repeat stain at [facility]) shows areas of portal expansion and [...] with biliary obstruction histologically. 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 05/28/2024 3:02 PM [facility] Materials Received Received are 13 slide(s) 1 block(s) labeled [id number] along with a copy of the outside pathology report. [place] [address]. All original materials are returned to the referring institution, along with a copy of our final report. 05/28/2024 3:02 PM [facility] Pathologist Location at [facility] 05/28/2024 3:02 PM [facility] Disclaimer The performance characteristics of all immunohistochemical and indirect immunofluorescence stains (if any) cited in this report were determined by the Histopathology Laboratory of [facility]. Some of these tests were developed by [...] the attending (teaching) pathologist. 05/28/2024 3:02 PM CHEMICAL APPLICATOR [facility] Embedded Images 05/28/2024 3:02 PM CHEMICAL APPLICATOR [facility] LAB Pathology/Cytolo gy ENTIRE LIVER / Unknown 05/25/2024 9:00 AM CHEMICAL APPLICATOR 05/27/2024 4:08 PM CHEMICAL APPLICATOR Rivera Reilly MD LAB - PATHOLOGY/CYTOLOGY ORDERAB LES Final Result Performing Organization Address City/State/[facility] Co de Phone Number [facility] [address] [phone] documented in this encounter Visit Diagnoses Diagnosis Illness, unspecified Encounter for removal of biliary stent documented in this encounter Additional Health Concerns Infection Onset Date Last Indicated Resolved Time COVID-19 Under Investigation 06/19/2024 06/19/2024 06/19/2024 7:16 PM CHEMICAL APPLICATOR COVID-19 Under Investigation 06/20/2024 06/20/2024 06/20/2024 9:00 AM CHEMICAL APPLICATOR documented as of this encounter Care Teams Food And Beverage Cashier Relationship Specialty Start Date End Date Flo Torres MD [address] [place] [address] PCP - General 02/05/21 documented as of this encounter
[2024-10-11 15:49] LABS: Lactic Acid Reflex 1.7 mmol/L (0.4-2.0)
[2024-10-11 15:58] LABS: Alanine Aminotransferase 98 U/L (16-63); Albumin Level 2.2 g/dL (3.4-5.0); Alkaline Phosphatase 578 U/L (46-116); Amylase 40 U/L (25-115); Anion Gap 8 mmol/L (4-12); Aspartate Amino Transferase 62 U/L (15-37); Bilirubin,Total 2.1 mg/dL (0.00-1.00); Blood Urea Nitrogen 17 mg/dL (7-18); Calcium 8.8 mg/dL (8.5-10.1); Carbon Dioxide 28 mmol/L (21-32); Chloride 98 mmol/L (98-108); Estimated Glomerular Filt Rate > 60; Glucose 118 mg/dL (70-99); Lipase 22 U/L (16-77); Osmolality Calculated 280 mOsm/kg (285-295); Potassium 5.1 mmol/L (3.5-5.1); Sodium 134 mmol/L (136-145); Total Protein 7.1 g/dL (6.4-8.2)
[2024-10-11 15:59] LABS: GGT > 690.0 U/L (15-85)
== END 2024-10-11 15:02 | disposition home or self-care (01) ==
PROVIDERS: PCP Internal Medicine; Visit Provider Internal Medicine
DX: R10.9 Unspecified abdominal pain (principal); R17 Unspecified jaundice
CPT/HCPCS: 36415; 80053; 81003; 82150; 82248; 82977; 83605; 83690; 85027; 87086